=== PATIENT | male | born 1935 | race Caucasian/White ===

== ENCOUNTER → 2019-11-04 | Outpatient (CLI) | payer MEDICARE | LOC: RADUSWWP 08:50 | PROVIDERS: ATTEND Podiatrist Foot & Ankle Surgery | DX: I73.9 Peripheral vascular disease, unspecified (principal) | CPT/HCPCS: 93923 ==

== ENCOUNTER 2021-11-17 07:37 | Observation (INO) | payer MEDICARE ==
[2021-11-17 07:51] LABS: Glucose,Whole Blood 275 mg/dL (75-99)
--- NOTE | 2021-11-17 08:00 | ED ---
General Adult HPI - General Stated complaint: Syncope Time Seen by Provider: 11/17/21 07:37 Source: patient, RN notes reviewed, old records reviewed - History of Present Illness Initial comments: This is an 86-year-old male who presents emergency Department after having had a syncopal episode. Patient states he was in the emergency department earlier today for nosebleed and he went home he remembers going to bed and getting up at 6:30 to go to the bathroom and then he found himself on the floor. Patient denies headache patient denies numbness weakness per patient denies neck pain patient denies chest pain patient with back pain patient denies any extremity pain. Patient has no difficulty breathing first breath per patient denies any recent fever chills or cough. Patient states he has no memory of falling or feeling lightheaded. - Related Data Home Medications Medication Instructions Recorded Confirmed Aspirin EC [Ecotrin] 325 mg PO DAILY 11/17/21 11/17/21 Atorvastatin [Lipitor] 10 mg PO HS 11/17/21 11/17/21 Brimonidine Tartrate/Timolol 1 drop BOTH EYES BID 11/17/21 11/17/21 [Combigan 0.2%-0.5% Eye Drops] Brinzolamide [Azopt 1% Ophth Susp] 1 drop LEFT EYE BID 11/17/21 11/17/21 Latanoprost [Xalatan 0.005%] 1 drop BOTH EYES HS 11/17/21 11/17/21 Levothyroxine Sodium [Synthroid] 25 mcg PO DAILY 11/17/21 11/17/21 Loratadine [Claritin] 10 mg PO DAILY 11/17/21 11/17/21 Multivitamins, Thera [Multivitamin 1 tab PO DAILY 11/17/21 11/17/21 (formulary)] Tamsulosin [Flomax] 0.4 mg PO DAILY 11/17/21 11/17/21 Vit C/E/Zn/Coppr/Lutein/Zeaxan 1 cap PO DAILY 11/17/21 11/17/21 [Preservision Areds 2 Softgel] metFORMIN HCL [Glucophage] 500 mg PO BID 11/17/21 11/17/21 Previous Rx's Medication Instructions Recorded Amoxic-Pot Clav 875-125Mg 1 tab PO BID 10 Days #20 tab 11/17/21 [Augmentin 875-125] Allergies Allergy/AdvReac Type Severity Reaction Status Date / Time No Known Allergies Allergy Verified 11/17/21 08:19 Review of Systems ROS Statement: Those systems with pertinent positive or pertinent negative responses have been documented in the HPI. ROS Other: All systems not noted in ROS Statement are negative. Past Medical History Past Medical History: CVA/TIA, Hyperlipidemia, Hypertension History of Any Multi-Drug Resistant Organisms: None Reported Past Surgical History: Appendectomy, Cholecystectomy Past Psychological History: No Psychological Hx Reported Smoking Status: Never smoker Past Alcohol Use History: None Reported Past Drug Use History: None Reported General Exam - General Exam Comments Initial Comments: GENERAL: Patient is well-developed and well-nourished. Patient is nontoxic and well- hydrated and is in mild distress. ENT: Neck is soft and supple. No significant lymphadenopathy is noted. Oropharynx is clear. Moist mucous membranes. Neck has full range of motion without eliciting any pain. EYES: The sclera were anicteric and conjunctiva were pink and moist. Extraocular movements were intact and pupils were equal round and reactive to light. Eyelids were unremarkable. PULMONARY: Unlabored respirations. Good breath sounds bilaterally. No audible rales rhonchi or wheezing was noted. CARDIOVASCULAR: There is a regular rate and rhythm without any murmurs gallops or rubs. ABDOMEN: Soft and nontender with normal bowel sounds. SKIN: Patient has a contusion to the occipital region of his scalp. NEUROLOGIC: Patient is alert and oriented x3. Cranial nerves II through XII are grossly intact. Motor and sensory are also intact. Normal speech, volume and content. Symmetrical smile. MUSCULOSKELETAL: Normal extremities with adequate strength and full range of motion. LYMPHATICS: No significant lymphadenopathy is noted PSYCHIATRIC: Normal psychiatric evaluation. Course Vital Signs 11/17/21 11/17/21 07:39 08:52 Pulse Rate 105 H 106 H Respiratory 18 18 Rate Blood Pressure 129/68 130/67 O2 Sat by Pulse 97 96 Oximetry Medical Decision Making - Medical Decision Making EKG shows sinus tachycardia at 108 bpm OK interval 173 QRSs 80 QT interval 337 QTC is 400 per patient's EKG shows no ST segment elevation or depression. Patient's CT of the brain and C-spine showed no acute abnormality. Chest x-ray showed questionable infiltrate in the left lower lobe however p atient has no cough he's had no fever and he has no white count. I spoke with Dr. Botello he agreed to admit the patient admitted the patient wrote admitting orders. Patient is being admitted because of the syncopal episode not the scalp contusion - Lab Data Result diagrams: 11/17/21 07:52 11/17/21 07:52 Lab Results 11/17/21 11/17/21 11/17/21 Range/Units 07:42 07:52 07:52 WBC 9.3 (3.8-10.6) k/uL RBC 3.14 L (4.30-5.90) m/uL Hgb 9.9 L (13.0-17.5) gm/dL Hct 29.7 L (39.0-53.0) % MCV 94.8 (80.0-100.0) fL MCH 31.6 (25.0-35.0) pg MCHC 33.3 (31.0-37.0) g/dL RDW 14.2 (11.5-15.5) % Plt Count 221 (150-450) k/uL MPV 8.3 Neutrophils % 88 % Lymphocytes % 6 % Monocytes % 3 % Eosinophils % 2 % Basophils % 0 % Neutrophils # 8.2 H (1.3-7.7) k/uL Lymphocytes # 0.6 L (1.0-4.8) k/uL Monocytes # 0.2 (0-1.0) k/uL Eosinophils # 0.2 (0-0.7) k/uL Basophils # 0.0 (0-0.2) k/uL PT 11.6 (9.0-12.0) sec INR 1.1 (<1.2) APTT 21.5 L (22.0-30.0) sec Sodium (137-145) mmol/L Potassium (3.5-5.1) mmol/L Chloride (98-107) mmol/L Carbon Dioxide (22-30) mmol/L Anion Gap mmol/L BUN (9-20) mg/dL Creatinine (0.66-1.25) mg/dL Est GFR (CKD-EPI)AfAm (>60 ml/min/1.73 sqM) Est GFR (CKD-EPI)NonAf (>60 ml/min/1.73 sqM) Glucose (74-99) mg/dL POC Glucose (mg/dL) 275 H (75-99) mg/dL POC Glu [employer] Builder ID Andrew Gan Calcium (8.4-10.2) mg/dL Magnesium (1.6-2.3) mg/dL Total Bilirubin (0.2-1.3) mg/dL AST (17-59) U/L ALT (4-49) U/L Alkaline Phosphatase (38-126) U/L Troponin I (0.000-0.034) ng/mL Total Protein (6.3-8.2) g/dL Albumin (3.5-5.0) g/dL 11/17/21 11/17/21 Range/Units 07:52 07:52 WBC (3.8-10.6) k/uL RBC (4.30-5.90) m/uL Hgb (13.0-17.5) gm/dL Hct (39.0-53.0) % MCV (80.0-100.0) fL MCH (25.0-35.0) pg MCHC (31.0-37.0) g/dL RDW (11.5-15.5) % Plt Count (150-450) k/uL MPV Neutrophils % % Lymphocytes % % Monocytes % % Eosinophils % % Basophils % % Neutrophils # (1.3-7.7) k/uL Lymphocytes # (1.0-4.8) k/uL Monocytes # (0-1.0) k/uL Eosinophils # (0-0.7) k/uL Basophils # (0-0.2) k/uL PT (9.0-12.0) sec INR (<1.2) APTT (22.0-30.0) sec Sodium 131 L (137-145) mmol/L Potassium 4.4 (3.5-5.1) mmol/L Chloride 99 (98-107) mmol/L Carbon Dioxide 24 (22-30) mmol/L Anion Gap 8 mmol/L BUN 34 H (9-20) mg/dL Creatinine 0.63 L (0.66-1.25) mg/dL Est GFR (CKD-EPI)AfAm >90 (>60 ml/min/1.73 sqM) Est GFR (CKD-EPI)NonAf >90 (>60 ml/min/1.73 sqM) Glucose 275 H (74-99) mg/dL POC Glucose (mg/dL) (75-99) mg/dL POC Glu [employer] Builder ID Calcium 8.6 (8.4-10.2) mg/dL Magnesium 1.5 L (1.6-2.3) mg/dL Total Bilirubin 0.7 (0.2-1.3) mg/dL AST 31 (17-59) U/L ALT 26 (4-49) U/L Alkaline Phosphatase 67 (38-126) U/L Troponin I <0.012 (0.000-0.034) ng/mL Total Protein 7.7 (6.3-8.2) g/dL Albumin 3.6 (3.5-5.0) g/dL Disposition Clinical Impression: Syncope, Fall, Scalp contusion Disposition: ADMITTED IP TO THIS HOSP Referrals: Catrina Samuels MD [Primary Care Provider] - 1-2 days Time of Disposition: 09:31
[2021-11-17 08:13] LABS: Basophils % (A) 0 %; Eosinophils # (A) 0.2 k/uL (0-0.7); Eosinophils % (A) 2 %; HCT 29.7 % (39.0-53.0); HGB 9.9 gm/dL (13.0-17.5); Lymphocytes # (A) 0.6 k/uL (1.0-4.8); Lymphocytes % (A) 6 %; MCH 31.6 pg (25.0-35.0); MCHC 33.3 g/dL (31.0-37.0); MCV 94.8 fL (80.0-100.0); Mean Platelet Volume 8.3; Monocytes # (A) 0.2 k/uL (0-1.0); Monocytes % (A) 3 %; Neutrophils # (A) 8.2 k/uL (1.3-7.7); Neutrophils % (A) 88 %; Platelet Count 221 k/uL (150-450); RBC 3.14 m/uL (4.30-5.90); RDW 14.2 % (11.5-15.5); WBC 9.3 k/uL (3.8-10.6)
[2021-11-17 08:28] LABS: ALT 26 U/L (4-49); AST 31 U/L (17-59); African American GFR (CKD) >90 (>60 ml/min/1.73 sqM); Albumin 3.6 g/dL (3.5-5.0); Alkaline Phosphatase 67 U/L (38-126); Anion Gap 8 mmol/L; Blood Urea Nitrogen 34 mg/dL (9-20); Calcium 8.6 mg/dL (8.4-10.2); Carbon Dioxide 24 mmol/L (22-30); Chloride 99 mmol/L (98-107); Glucose 275 mg/dL (74-99); Magnesium 1.5 mg/dL (1.6-2.3); Non-African American GFR(CKD) >90 (>60 ml/min/1.73 sqM); Potassium 4.4 mmol/L (3.5-5.1); Sodium 131 mmol/L (137-145); Total Bilirubin 0.7 mg/dL (0.2-1.3); Total Protein 7.7 g/dL (6.3-8.2)
--- NOTE | 2021-11-17 08:32 | CT ---
EXAMINATION TYPE: CT brain rashard wo con DATE OF EXAM: 11/17/2021 COMPARISON: None HISTORY: Fall, trauma CT DLP: 1368.8 mGycm, Automated exposure control for dose reduction was used. CONTRAST: Patient injected with 0 mL of Isovue 300. CT of the brain is performed utilizing 3 mm thick sections through the posterior fossa and 3 mm thick sections through the remaining calvarium. Study is performed within 24 hours of arrival to the hospital. No abnormal hyperdensity is present to suggest an acute intracranial hemorrhage. No mass lesion is evident. No acute infarcts are evident. Mild periventricular white matter hypodensity is present, likely on t he basis of chronic white matter ischemic changes. Ventricles and sulci are appropriate for the patient age. No acute fractures are evident. Air-fluid levels may be within the maxillary sinuses. Correlate for acute maxillary sinusitis. Mucosa l thickening is through right-sided ethmoid air cells. This could be hemorrhage as well. Mucosal thic kening is within the frontal sinuses some mucosal thickening is within the right sphenoid sinus. IMPRESSIONS: 1. No acute intracranial process. 2. Chronic appearing periventricular white matter ischemic changes. 3. Air-fluid levels within the maxillary sinuses. Correlate for acute maxillary sinusitis. 4. Some fluid may be within the right nasal passage. Posttraumatic hemorrhage is not excluded. CT cervical spine. COMPARISON: None CT of the cervical spine is performed in the axial plane at 2 mm thick sections. Reconstructed image s in the coronal, and sagittal plane are reviewed on the computer. No acute fractures are evident. Vertebral body alignment is normal. There is diffuse loss of disc height. This is greater at the C4-5 C5-6 and C6-7 levels. Endplate spur ring C5-6 is noted. Anterior vertebral body spurring is present C4-C6. Some vacuum disc phenomenon is noted at C6-7. There is a large central disc herniation with moderate anterior thecal sac compression C4-5. AP spina l canal stenosis is present. Consider MRI for follow-up. Some milder spinal canal stenosis from endpl ate spurring is present at C5-6 level. Bilateral foraminal narrowing is present C5-6 and on the left at C4-5. Vertebral body heights are preserved. Bilateral apical thickening or infiltrates are present. Consider follow-up CT chest. IMPRESSIONS: 1. No acute osseous abnormality cervical spine. 2. Degenerative disc changes greatest C4-5, C5-6 and C6-7. 3. Central disc herniation at C4-5 appears large contributing to spinal canal stenosis. Consider MRI for additional workup. Some osseous spurring at C5-6 endplate level contributing to mild spinal canal narrowing. 4. Foraminal narrowing C4-5 C5-6 discussed above.
[2021-11-17 08:33] LABS: INR 1.1 (<1.2); Prothrombin Time 11.6 sec (9.0-12.0)
[2021-11-17 08:37] LABS: Partial Thromboplastin Time 21.5 sec (22.0-30.0)
--- NOTE | 2021-11-17 09:10 | XR ---
EXAMINATION TYPE: XR chest 2V DATE OF EXAM: 11/17/2021 COMPARISON: None INDICATION: Chest pain TECHNIQUE: Frontal and lateral views of the chest are obtained. FINDINGS: The heart size is normal. The pulmonary vasculature is normal. There is an infiltrate in the left lower lobe. Correlate for pneumonia. Consider atypical pneumonia.. IMPRESSION: 1. Left lower lobe infiltrate. Correlate for pneumonia. Follow-up is recommended.
[2021-11-17] MEDS ORDERED: NITROGLYCERIN SL TABS 0.4 MG TAB SUBLINGUAL PRN (09:31)
[2021-11-17] MEDS ORDERED: SODIUM CHLORIDE 0.9% 500 ML 500 ML IV ONE (09:41)
[2021-11-17] MEDS ORDERED: ENOXAPARIN 40 MG/0.4 ML SYRINGE SQ SCH (12:00)
--- NOTE | 2021-11-17 12:27 | US ---
EXAMINATION TYPE: US carotid duplex BILAT DATE OF EXAM: 11/17/2021 COMPARISON: NONE CLINICAL HISTORY: Syncope. Syncope, fall EXAM MEASUREMENTS: RIGHT: Peak Systolic Velocity (PSV) cm/sec ----- Right CCA: 84.5 ----- Right ICA: 81.4 ----- Right ECA: 194.8 ICA/CCA ratio: 1.0 RIGHT: End Diastole cm/sec ----- Right CCA: 18.6 ----- Right ICA: 20.6 ----- Right ECA: 19.2 LEFT: Peak Systolic Velocity (PSV) cm/sec ----- Left CCA: 64.7 ----- Left ICA: 339.7 ----- Left ECA: 245.4 ICA/CCA ratio: 5.2 LEFT: End Diastole cm/sec ----- Left CCA: 14.2 ----- Left ICA: 49.4 ----- Left ECA: 9.4 VERTEBRALS (direction of flow): Right Vertebral: Antegrade Left Vertebral: Antegrade Rhythm: Tachycardia Heterogeneous plaque bilaterally with bilateral bulbs heavily calcified/ Elevated velocities bilate ral ECA's and left ICA IMPRESSION: 1. 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 Correlate with the patient's symptoms. 2. At least mild stenosis of less than 50% within the right internal carotid artery. Elevated interna l carotid artery velocities not evident. Hard plaquing with shadowing however prevents accurate visua l correlation. Consider CTA for additional evaluation. Criteria for Assigning % of Stenosis / Diameter reduction (Estimation based on the indirect measurements of the internal carotid artery velocities (ICA PSV). 1. Normal (no stenosis)=ICA PSV < 125 cm/s: ratio < 2.0: ICA EDV<40 cm/s. 2. Less than 50% stenosis=ICA PSV < 125 cm/s: ratio < 2.0: ICA EDV<40 cm/s. 3. 50 to 69% stenosis=ICA PSV of 125 to 230 cm/s: ration 2.0 ? 4.0: ICA EDV 40-100 cm/s. 4. Greater than 70% stenosis to near occlusion= ICA PSV > 230 cm/s: ratio > 4.0: ICA EDV > 100 cm/s. 5. Near occlusion= ICA PSV velocities may be low or undetectable: variable ratio and ICA EDV. 6. Total occlusion=unable to detect flow.
[2021-11-17] MEDS ORDERED: SODIUM CHLORIDE 0.9% 500 ML 250 ML IV ONE (14:14)
[2021-11-17 15:21] LABS: Appearance,Urine Clear (Clear); Bilirubin,Urine Negative (Negative); Blood,Urine Negative (Negative); Color,Urine Light Yellow; Glucose,Urine (UA) 4+ (Negative); Ketones,Urine 1+ (Negative); Leukocyte Esterase,Urine Negative (Negative); Nitrite,Urine Negative (Negative); Protein,Urine Negative (Negative); Specific Gravity,Urine 1.013 (1.001-1.035); Urobilinogen,Urine <2.0 mg/dL (<2.0)
--- NOTE | 2021-11-17 15:38 | CT ---
EXAMINATION TYPE: CT angio chest DATE OF EXAM: 11/17/2021 COMPARISON: None HISTORY: Elevated d-dimer CT DLP: 322.8 mGycm Automated exposure control for dose reduction was used. CONTRAST: Performed with IV Contrast, patient injected with 100 mL of Isovue 370. There are Three-D postprocessed images. There is coarse interstitial infiltrate in the periphery of both lungs. There is no pleural effusion. Heart size is normal. There is no pericardial effusion. There are no hilar masses. There is no mediastinal adenopathy. Thoracic aorta is intact. There is no aneurysm or dissection. There is normal contrast opacification of the pulmonary arteries. There are no filling defects. There is some degenerative spurring in the thoracic spine. No compression fracture. Sternum is intact . Upper abdominal soft tissues appear intact. There is cholecystectomy. IMPRESSION: No evidence of pulmonary embolism. Patchy predominantly peripheral interstitial pulmonary infiltrates consistent with pulmonary fibrosis .
[2021-11-17] MEDS ORDERED: ENOXAPARIN 80 MG/0.8 ML SYRINGE SQ SCH ×2 (16:00→21:00)
[2021-11-17 16:03] LABS: Glucose,Whole Blood 316 mg/dL (75-99)
[2021-11-17 17:05] LABS: Glucose,Whole Blood 280 mg/dL (75-99)
[2021-11-17] MEDS: INSULIN ASPART (NovoLOG) 100 UNIT/ML VIAL SQ SCH ×2 (17:12→21:11)
--- NOTE | 2021-11-17 19:30 | US ---
EXAMINATION TYPE: US venous doppler duplex LE BI DATE OF EXAM: 11/17/2021 6:52 PM COMPARISON: NONE CLINICAL HISTORY: R/O DVT. SIDE PERFORMED: bilateral TECHNIQUE: The lower extremity deep venous system is examined utilizing real time linear array sonog cyn with graded compression, doppler sonography and color-flow sonography. VESSELS IMAGED: Common Femoral Vein Deep Femoral Vein Greater Saphenous Vein * Femoral Vein Popliteal Vein Small Saphenous Vein * Proximal Calf Veins (* superficial vessels) Right Leg: no evidence of DVT as visualized Left Leg: no evidence of DVT as visualized IMPRESSION: No evidence of deep vein thrombosis in both legs.
[2021-11-17] MEDS: ATORVASTATIN 10 MG TAB PO SCH (20:24)
[2021-11-17 21:09] LABS: Glucose,Whole Blood 226 mg/dL (75-99)
[2021-11-17] MEDS: DORZOLAMIDE HCL 2% DROPS 10 ML BTL LEFT EYE SCH (21:24)
[2021-11-17] MEDS: BRIMONIDINE TARTRATE 0.2% DROPS 5 ML BTL BOTH EYES SCH (21:25)
[2021-11-17] MEDS: LATANOPROST 0.005% OPHTH DROPS 2.5 ML BTL BOTH EYES SCH (21:25)
[2021-11-17] MEDS: TIMOLOL 0.5% OPHTH DROPS 5 ML BTL BOTH EYES SCH (21:25)
[2021-11-18 07:37] LABS: Glucose,Whole Blood 203 mg/dL (75-99)
[2021-11-18] MEDS: INSULIN ASPART (NovoLOG) 100 UNIT/ML VIAL SQ SCH ×4 (07:47→21:51)
[2021-11-18] MEDS: LEVOTHYROXINE 25 MCG TAB PO SCH (07:47)
[2021-11-18] MEDS: VIT A,C & E-LUTEIN-MINERALS 1 EACH TAB PO SCH (07:50)
[2021-11-18] MEDS: PANTOPRAZOLE 40 MG TABLET PO SCH (07:50)
[2021-11-18] MEDS: MULTIVITAMINS, THERA 1 EACH TAB PO SCH (07:50)
[2021-11-18] MEDS: LORATADINE 10 MG TAB PO SCH (07:50)
[2021-11-18] MEDS: ASPIRIN 325 MG TAB PO SCH (07:50)
[2021-11-18] MEDS: TAMSULOSIN 0.4 MG CAP.ER.24H PO SCH (07:50)
[2021-11-18] MEDS: ENOXAPARIN 40 MG/0.4 ML SYRINGE SQ SCH (07:51)
[2021-11-18] MEDS: TIMOLOL 0.5% OPHTH DROPS 5 ML BTL BOTH EYES SCH ×2 (07:51→22:02)
[2021-11-18] MEDS: BRIMONIDINE TARTRATE 0.2% DROPS 5 ML BTL BOTH EYES SCH ×2 (07:51→22:02)
[2021-11-18] MEDS: DORZOLAMIDE HCL 2% DROPS 10 ML BTL LEFT EYE SCH ×2 (07:52→22:01)
[2021-11-18 09:15] LABS: Chol/HDL Ratio 1.97 Ratio; LDL Cholesterol,Calculated 41.4 mg/dL (0.0-131.0)
[2021-11-18 09:27] LABS: Basophils % (A) 1 %; Eosinophils # (A) 0.2 k/uL (0-0.7); Eosinophils % (A) 4 %; HGB 9.8 gm/dL (13.0-17.5); Lymphocytes # (A) 0.6 k/uL (1.0-4.8); Lymphocytes % (A) 9 %; MCH 31.9 pg (25.0-35.0); MCHC 32.5 g/dL (31.0-37.0); Mean Platelet Volume 9.6; Monocytes # (A) 0.3 k/uL (0-1.0); Monocytes % (A) 5 %; Neutrophils # (A) 5.4 k/uL (1.3-7.7); Neutrophils % (A) 81 %; Platelet Count 165 k/uL (150-450); RBC 3.06 m/uL (4.30-5.90); RDW 14.6 % (11.5-15.5); WBC 6.6 k/uL (3.8-10.6)
[2021-11-18 09:41] LABS: ALT 24 U/L (4-49); AST 29 U/L (17-59); African American GFR (CKD) >90 (>60 ml/min/1.73 sqM); Albumin 3.4 g/dL (3.5-5.0); Albumin/Globulin Ratio 0.9; Alkaline Phosphatase 63 U/L (38-126); Anion Gap 6 mmol/L; Blood Urea Nitrogen 19 mg/dL (9-20); Calcium 8.5 mg/dL (8.4-10.2); Carbon Dioxide 23 mmol/L (22-30); Chloride 103 mmol/L (98-107); Glucose 220 mg/dL (74-99); Non-African American GFR(CKD) >90 (>60 ml/min/1.73 sqM); Potassium 3.8 mmol/L (3.5-5.1); Sodium 132 mmol/L (137-145); Total Bilirubin 0.8 mg/dL (0.2-1.3); Total Protein 7.4 g/dL (6.3-8.2)
[2021-11-18 12:05] LABS: Glucose,Whole Blood 142 mg/dL (75-99)
--- NOTE | 2021-11-18 12:23 | ECHOF ---
Referral Reason: MEASUREMENTS -------- HEIGHT: 180.3 cm WEIGHT: 68.0 kg BP: IVSd: 1.2 cm (0.6 - 1.1) LVIDd: 3.2 cm (3.9 - 5.3) LVPWd: 1.4 cm (0.6 - 1.1) IVSs: 1.6 cm LVIDs: 2.6 cm LVPWs: 1.4 cm MV EXCURSION: 15.271 mm (> 18.000) MV EF SLOPE: 38 mm/s (70 - 150) EPSS: 1.3 cm MV E Chau: 0.73 m/s MV DecT: 231 ms MV A Chau: 1.14 m/s MV E/A Ratio: 0.64 RAP: 5.00 mmHg RVSP: 8.21 mmHg FINDINGS -------- Sinus rhythm. This was a technically difficult study with suboptimal views. The left ventricular size is normal. There is mild concentric left ventricular hypertrophy. Overa ll left ventricular systolic function is normal with, an EF between 55 - 60 %. The right ventricle is normal in size. The left atrial size is normal. The right atrium was not well visualized. Lumason used The aortic valve was not well visualized. The mitral valve was not well visualized. There is trace mitral regurgitation. The tricuspid valve was not well visualized. Trace tricuspid regurgitation present. Right ventric ular systolic pressure is normal at < 35 mmHg. The pulmonic valve was not well visualized. The aortic root size is normal. Normal inferior vena cava with normal inspiratory collapse consistent with estimated right atrial pre ssure of 5 mmHg. There is no pericardial effusion. CONCLUSIONS -------- 1. This was a technically difficult study with suboptimal views. 2. There is mild concentric left ventricular hypertrophy. 3. Overall left ventricular systolic function is normal with, an EF between 55 - 60 %. 4. There is trace mitral regurgitation. 5. Trace tricuspid regurgitation present. 6. There is no pericardial effusion. [employer] LEADER: Mariam Bynum RDCS
--- NOTE | 2021-11-18 14:26 | P.CRDCN ---
History of Present Illness Consult date: 11/18/21 History of present illness: HISTORY OF PRESENT ILLNESS: This is a 86-year-old male with a past medical history significant for hypothyroidism, BPH, diabetes, and hyperlipidemia. 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 We have been asked to see the patient in consultation for syncope. Patient examined at the bedside. Patient is somewhat of a poor historian. Patient presented to the hospital due to syncope episode. Patient states he got up last night to use the bathroom and the next thing he knows he woke up on the floor. Patient denies having any weakness, lightheadedness, or dizziness prior to this. He denies having any chest pain or pressure. He denied any shortness of breath. The patient was also found to have a nosebleed. He currently has nasal packing in his right nostril. Patient reports having 3 nose bleeds within the last week. * EKG reveals sinus tachycardia with heart rate of 108 * Chest xray left lower lobe infiltrate. Correlate for pneumonia. * CT brain: No acute intracranial process. Chronic appearing periventricular white matter ischemic changes. * Carotid Doppler: Severe stenosis left internal carotid artery greater than 70%. At least mild stenosis of less than 50% within the right internal carotid artery. * CTA chest: Negative for pulmonary embolism. Patchy predominantly peripheral interstitial pulmonary infiltrates consistent with pulmonary fibrosis. * Venous Doppler: Negative for DVT of lower extremities bilaterally * Laboratory data: WBC 6.6. Hemoglobin 9.8. Platelet count 165. D-dimer 3.54. Sodium 132. Potassium 3.8. BUN 19. Creatinine 0.62. * Current home cardiac medications include aspirin 325 mg daily and Lipitor 10 mg daily * Echocardiogram completed revealing ejection fraction 55-60%, trace mitral regurgitation, and trace tricuspid regurgitation REVIEW OF SYSTEMS: At the time of my exam: CONSTITUTIONAL: Denies fever or chills. HEENT: Denies blurred vision, vision changes, or eye pain. Denies hemoptysis CARDIOVASCULAR: Denies chest pain. Denies orthopnea. Denies PND. Denies palpitations RESPIRATORY: Denies shortness of breath. GASTROINTESTINAL: Denies abdominal pain. Denies nausea or vomiting. HEMATOLOGIC: Denies bleeding disorders. GENITOURINARY: Denies any blood in urine. SKIN: Denies pruitis. Denies rash. PHYSICAL EXAM: VITAL SIGNS: Reviewed. GENERAL: Well-developed in no acute distress. HEENT: Head is normocephalic. Nasal packing to right nare. Pupils are equal, round. Sclerae anicteric. Mucous membranes of the mouth are moist. Neck supple. No JVD or thyromegaly LUNGS: Respirations even and unlabored. Lungs essentially clear to auscultation bilaterally. HEART: Regular rate and rhythm. S1 and S2 heard. ABDOMEN: Soft. Nondistended. Nontender. EXTREMITIES: Normal range of motion. No clubbing or cyanosis. Peripheral pulses intact. No lower extremity edema NEUROLOGIC: Awake and alert. Oriented x 3. ASSESSMENT: Syncope Epistaxis Carotid stenosis, Left 70%, Right less than 50% Diabetes Hyperlipidemia Hypothyroidism BPH PLAN: 2D echo obtained and reviewed Obtain orthostatic blood pressures Monitor telemetry Further recommendations pending patient course Nurse practitioner note has been reviewed by physician. Signing provider agrees with the documented findings, assessment, and plan of care. Past Medical History Past Medical History: CVA/TIA, Diabetes Mellitus, Eye Disorder, Hyperlipidemia, Hypertension, Prostate Disorder, Thyroid Disorder, Vascular Disorder Additional Past Medical History / Comment(s): CVA with R eye blindness, bilateral glaucoma, past HTN but then running low blood pressures and taken off rx, epistaxis, NIDDM type II, BPH, sinus problems, hypothyroid, PVD/L leg. History of Any Multi-Drug Resistant Organisms: None Reported Past Surgical History: Appendectomy, Cholecystectomy Additional Past Surgical History / Comment(s): Colonoscopy Past Anesthesia/Blood Transfusion Reactions: No Reported Reaction Smoking Status: Never smoker - Past Family History Father Family Medical History: Myocardial Infarction ([place]) Additional Family Medical History / Comment(s): Father from a [place] at the age of 50 yrs. Mother Family Medical History: Diabetes Mellitus, Liver Disease Additional Family Medical History / Comment(s): Hepatitis. Medications and Allergies Home Medications Medication Instructions Recorded Confirmed Type Amoxic-Pot Clav 875-125Mg 1 tab PO BID 10 Days #20 tab 11/17/21 11/17/21 Rx [Augmentin 875-125] Aspirin EC [Ecotrin] 325 mg PO DAILY 11/17/21 11/17/21 History Atorvastatin [Lipitor] 10 mg PO HS 11/17/21 11/17/21 History Brimonidine Tartrate/Timolol 1 drop BOTH EYES BID 11/17/21 11/17/21 History [Combigan 0.2%-0.5% Eye Drops] Brinzolamide [Azopt 1% Ophth Susp] 1 drop LEFT EYE BID 11/17/21 11/17/21 History Latanoprost [Xalatan 0.005%] 1 drop BOTH EYES HS 11/17/21 11/17/21 History Levothyroxine Sodium [Synthroid] 25 mcg PO DAILY 11/17/21 11/17/21 History Loratadine [Claritin] 10 mg PO DAILY 11/17/21 11/17/21 History Multivitamins, Thera [Multivitamin 1 tab PO DAILY 11/17/21 11/17/21 History (formulary)] Tamsulosin [Flomax] 0.4 mg PO DAILY 11/17/21 11/17/21 History Vit C/E/Zn/Coppr/Lutein/Zeaxan 1 cap PO DAILY 11/17/21 11/17/21 History [Preservision Areds 2 Softgel] metFORMIN HCL [Glucophage] 500 mg PO BID 11/17/21 11/17/21 History Allergies Allergy/AdvReac Type Severity Reaction Status Date / Time No Known Allergies Allergy Verified 11/17/21 08:19 Physical Exam Vitals: Vital Signs Temp Pulse Pulse Resp BP BP Pulse Ox 11/18/21 05:08 99 20 146/80 96 11/18/21 04:21 80 16 130/77 11/18/21 00:26 84 16 99 11/17/21 23:00 82 20 122/67 97 11/17/21 22:00 80 20 146/76 98 11/17/21 21:00 99 22 146/76 97 11/17/21 16:37 98.4 F 111 H 16 136/79 99 11/17/21 15:55 98.1 F 108 H 20 114/79 99 11/17/21 14:22 120 H 20 132/68 98 11/17/21 14:00 111 H 16 11/17/21 12:33 97.9 F 11/17/21 12:05 104 H 18 98 Intake and Output 11/17/21 11/18/21 11/18/21 22:59 06:59 14:59 Output Total 150 Balance -150 Output: Urine 150 Other: # Voids 1 Weight 68.039 kg Results 11/18/21 05:46 11/18/21 05:46 Cardiac Enzymes 11/17/21 11/17/21 11/18/21 Range/Units 11:14 15:31 05:46 AST 29 (17-59) U/L Troponin I <0.012 <0.012 (0.000-0.034) ng/mL Lipids 11/18/21 Range/Units 05:46 Triglycerides 86.00 (0.00-149.00) mg/dL Cholesterol 119.00 (0.00-200.00) mg/dL HDL Cholesterol 60.40 H (40.00-60.00) mg/dL Cholesterol/HDL Ratio 1.97 Ratio CBC 11/18/21 Range/Units 05:46 WBC 6.6 (3.8-10.6) k/uL RBC 3.06 L (4.30-5.90) m/uL Hgb 9.8 L (13.0-17.5) gm/dL Hct 30.0 L (39.0-53.0) % Plt Count 165 (150-450) k/uL Comprehensive Metabolic Panel 11/18/21 Range/Units 05:46 Sodium 132 L (137-145) mmol/L Potassium 3.8 (3.5-5.1) mmol/L Chloride 103 (98-107) mmol/L Carbon Dioxide 23 (22-30) mmol/L BUN 19 (9-20) mg/dL Creatinine 0.62 L (0.66-1.25) mg/dL Glucose 220 H (74-99) mg/dL Calcium 8.5 (8.4-10.2) mg/dL AST 29 (17-59) U/L ALT 24 (4-49) U/L Alkaline Phosphatase 63 (38-126) U/L Total Protein 7.4 (6.3-8.2) g/dL Albumin 3.4 L (3.5-5.0) g/dL Current Medications Generic Name Dose Route Start Last Admin Trade Name Freq PRN Reason Stop Dose Admin Aspirin 325 mg 11/18/21 09:00 11/18/21 07:50 Aspirin 325 Mg Tab PO 325 mg DAILY CRISTAL Administration Atorvastatin Calcium 10 mg 11/17/21 21:00 11/17/21 20:24 Atorvastatin 10 Mg Tab PO 10 mg HS CRISTAL Administration Brimonidine Tartrate 1 drops 11/17/21 21:00 11/18/21 07:51 Brimonidine Tartrate 0.2% Drops 5 Ml Btl BOTH EYES 1 drops BID CRISTAL Administration Dorzolamide HCl 1 drops 11/17/21 21:00 11/18/21 07:52 Dorzolamide Hcl 2% Drops 10 Ml Btl LEFT EYE 1 drops BID CRISTAL Administration Enoxaparin Sodium 40 mg 11/18/21 09:00 11/18/21 07:51 Enoxaparin 40 Mg/0.4 Ml Syringe SQ 40 mg DAILY CRISTAL Administration Insulin Aspart 0 unit 11/17/21 17:30 11/18/21 07:47 Insulin Aspart (Novolog) 100 Unit/Ml Vial SQ 2 unit ACHS CRISTAL Administration Protocol Latanoprost 1 drops 11/17/21 21:00 11/17/21 21:25 Latanoprost 0.005% Ophth Drops 2.5 Ml Btl BOTH EYES 1 drops HS CRISTAL Administration Levothyroxine Sodium 25 mcg 11/18/21 06:30 11/18/21 07:47 Levothyroxine 25 Mcg Tab PO 25 mcg DAILY@0630 CRISTAL Administration Loratadine 10 mg 11/18/21 09:00 11/18/21 07:50 Loratadine 10 Mg Tab PO 10 mg DAILY CRISTAL Administration Multivitamins 1 each 11/18/21 09:00 11/18/21 07:50 Multivitamins, Thera 1 Each Tab PO 1 each DAILY CRISTAL Administration Multivitamins/Minerals 1 each 11/18/21 09:00 11/18/21 07:50 Vit A,C & B-Fcpqcr-Iglxnqft 1 Each Tab PO 1 each DAILY CRISTAL Administration Nitroglycerin 0.4 mg 11/17/21 09:31 Nitroglycerin Sl Tabs 0.4 Mg Tab SUBLINGUAL Q5M PRN Chest Pain Pantoprazole Sodium 40 mg 11/18/21 07:30 11/18/21 07:50 Pantoprazole 40 Mg Tablet PO 40 mg AC-[id number] CRISTAL Administration Tamsulosin HCl 0.4 mg 11/18/21 09:00 11/18/21 07:50 Tamsulosin 0.4 Mg Cap.Er.24h PO 0.4 mg DAILY CRISTAL Administration Timolol Maleate 1 drops 11/17/21 21:00 11/18/21 07:51 Timolol 0.5% Ophth Drops 5 Ml Btl BOTH EYES 1 drops BID CRISTAL Administration Intake and Output 11/17/21 11/18/21 11/18/21 22:59 06:59 14:59 Output Total 150 Balance -150 Output: Urine 150 Other: # Voids 1 Weight 68.039 kg Patient Weight 11/19/21 06:59 Weight 68.039 kg 11/18/21 05:46 11/18/21 05:46
[2021-11-18 17:28] LABS: Glucose,Whole Blood 262 mg/dL (75-99)
[2021-11-18 17:39] LABS: Partial Thromboplastin Time 25.3 sec (22.0-30.0); Prothrombin Time 10.7 sec (9.0-12.0)
--- NOTE | 2021-11-18 18:03 | P.HPIM ---
History of Present Illness H&P Date: 11/17/21 Reginaldo Bynum, is an 86-year-old male who presented to [facility] emergency room after having an episode of syncope at home, patient states that he came into emergency room for a nosebleed and was discharged home, afterwards he was in his bed when he got up and went to the bathroom and passed out and fell to the floor in the bathroom, he woke up on the bathroom floor and did not remember falling or feeling dizzy or passing out, he returned to emergency room where he was evaluated and admitted to telemetry floor for further evaluation. He was evaluated in the emergency room vital examination on presentation revealed heart rate of 105 respiration 18 blood pressure 129/68 pulse ox 97% on room air Laboratory data revealed a white blood count of 9.3 hemoglobin 9.9 platelet count 221 sodium 131 potassium 4.4 chloride 99 CO2 24 BUN 34 creatinine 0.63 glucose level 275 troponin level negative COVID-19 PCR negative Testing in the emergency room revealed EKG revealed sinus tachycardia was left atrial enlargement, chest x-ray revealed left lower lobe infiltrate correlate for pneumonia, computed tomography scan of the brain revealed no acute intracranial process, computed tomography scan of the cervical spine revealed 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 Patient was admitted to medical floor for further evaluation and treatment Past medical history is significant for history of hyperlipidemia, history of ivl-exvmrtb-bmfsmjodn diabetes mellitus, history of hypothyroidism, history of benign prostatic hypertrophy, Past Medical History Past Medical History: CVA/TIA, Hyperlipidemia, Hypertension History of Any Multi-Drug Resistant Organisms: None Reported Past Surgical History: Appendectomy, Cholecystectomy Past Psychological History: No Psychological Hx Reported Smoking Status: Never smoker Past Alcohol Use History: None Reported Past Drug Use History: None Reported - Past Family History Father Family Medical History: Myocardial Infarction ([place]) Additional Family Medical History / Comment(s): Father from a [place] at the age of 50 yrs. Mother Family Medical History: Diabetes Mellitus, Liver Disease Additional Family Medical History / Comment(s): Hepatitis. Medications and Allergies Home Medications Medication Instructions Recorded Confirmed Type Amoxic-Pot Clav 875-125Mg 1 tab PO BID 10 Days #20 tab 11/17/21 11/17/21 Rx [Augmentin 875-125] Aspirin EC [Ecotrin] 325 mg PO DAILY 11/17/21 11/17/21 History Atorvastatin [Lipitor] 10 mg PO HS 11/17/21 11/17/21 History Brimonidine Tartrate/Timolol 1 drop BOTH EYES BID 11/17/21 11/17/21 History [Combigan 0.2%-0.5% Eye Drops] Brinzolamide [Azopt 1% Ophth Susp] 1 drop LEFT EYE BID 11/17/21 11/17/21 History Latanoprost [Xalatan 0.005%] 1 drop BOTH EYES HS 11/17/21 11/17/21 History Levothyroxine Sodium [Synthroid] 25 mcg PO DAILY 11/17/21 11/17/21 History Loratadine [Claritin] 10 mg PO DAILY 11/17/21 11/17/21 History Multivitamins, Thera [Multivitamin 1 tab PO DAILY 11/17/21 11/17/21 History (formulary)] Tamsulosin [Flomax] 0.4 mg PO DAILY 11/17/21 11/17/21 History Vit C/E/Zn/Coppr/Lutein/Zeaxan 1 cap PO DAILY 11/17/21 11/17/21 History [Preservision Areds 2 Softgel] metFORMIN HCL [Glucophage] 500 mg PO BID 11/17/21 11/17/21 History Allergies Allergy/AdvReac Type Severity Reaction Status Date / Time No Known Allergies Allergy Verified 11/17/21 08:19 Physical Exam Vitals: Vital Signs Pulse Resp BP Pulse Ox 11/17/21 11:00 104 H 18 139/72 97 11/17/21 08:52 106 H 18 130/67 96 11/17/21 07:39 105 H 18 129/68 97 Intake and Output 11/16/21 11/17/21 11/17/21 22:59 06:59 14:59 Other: Weight 68.039 kg In general patient is alert and oriented x 3 in no distress HEENT head normocephalic and atraumatic Neck is supple no JVD no goiter no lymphadenopathy no carotid bruit Chest examination is clear to auscultation no crackles no wheezing Cardiac exam reveals regular heart sounds S1 and S2 no gallops no murmurs Abdomen is soft nontender no organomegaly with normal bowel sounds Extremity exam reveals no edema no cyanosis or clubbing Neurological examination reveals no gross focal deficits Results CBC & Chem 7: 02/14/22 05:46 11/18/21 05:46 Labs: Abnormal Lab Results - Last 24 Hours (Table) 11/17/21 11/17/21 11/17/21 Range/Units 07:42 07:52 07:52 RBC 3.14 L (4.30-5.90) m/uL Hgb 9.9 L (13.0-17.5) gm/dL Hct 29.7 L (39.0-53.0) % Neutrophils # 8.2 H (1.3-7.7) k/uL Lymphocytes # 0.6 L (1.0-4.8) k/uL APTT 21.5 L (22.0-30.0) sec Sodium (137-145) mmol/L BUN (9-20) mg/dL Creatinine (0.66-1.25) mg/dL Glucose (74-99) mg/dL POC Glucose (mg/dL) 275 H (75-99) mg/dL Magnesium (1.6-2.3) mg/dL 11/17/21 Range/Units 07:52 RBC (4.30-5.90) m/uL Hgb (13.0-17.5) gm/dL Hct (39.0-53.0) % Neutrophils # (1.3-7.7) k/uL Lymphocytes # (1.0-4.8) k/uL APTT (22.0-30.0) sec Sodium 131 L (137-145) mmol/L BUN 34 H (9-20) mg/dL Creatinine 0.63 L (0.66-1.25) mg/dL Glucose 275 H (74-99) mg/dL POC Glucose (mg/dL) (75-99) mg/dL Magnesium 1.5 L (1.6-2.3) mg/dL Assessment and Plan Plan: Syncope with collapse Dehydration with elevated BUN and creatinine on presentation Hyperglycemia on presentation Underlying history of nwg-pfdibnt-bjxwlojak diabetes mellitus Underlying history of hyperlipidemia Underlying history of hypothyroidism Underlying history of benign prostatic hypertrophy At this time patient is admitted to medical floor Will start gentle IV hydration Home medications reviewed and reordered, will hold metformin at this time due to elevated BUN and creatinine, will cover with insulin sliding scale For DVT prophylaxis we will use Lovenox, for GI prophylaxis Protonix Serial EKGs and cardiac enzymes are ordered, cardiology consultation was requested Will check echocardiogram and carotid Doppler
--- NOTE | 2021-11-18 19:07 | P.PN ---
Subjective Progress Note Date: 11/18/21 Erik Cha, is an 87-year-old male who presented to [facility] emergency room with a chief complaint of generalized weakness. Patient was admitted to the hospital with COVID-19 pneumonia in October he was discharged to a [facility] and was recently discharged maryanne e, patient has been tired he has poor oral intake, he was also complaining of shortness of breath with any activity. He was evaluated in the emergency room vital examination on presentation revealed a temperature of 97.4 pulse 73 respiration 22 blood pressure 102/69 pulse ox 100% on 4 L nasal cannula Laboratory data revealed a white blood count of 5.4 hemoglobin 10.0 platelet count 690 sodium 141 potassium 4.6 chloride 123 CO2 19 BUN 63 creatinine 1.97 magnesium 0.9 urine analysis revealed evidence of urinary tract infection with more than 182 white blood cells per high-power field with many bacteria and many yeast, Mendez virus PCR was positive. Testing in the emergency room revealed chest x-ray revealed evidence of atypical pneumonia with progression from previous studies Patient was admitted to medical floor for further evaluation and treatment. On 11/18/2021 patient was seen and examined on the medical floor he is alert and oriented 3 in no apparent distress there is no fever or chills no headache or dizziness no chest pain no shortness of breath no cough no nausea or vomiting no abdominal pain no diarrhea no blood in the stools no burning with urination no frequency or urgency and no hematuria, patient was evaluated by cardiology, we are awaiting echocardiogram results, and awaiting evaluation by hematology in that regard to elevated d-dimer Objective - Vital Signs Vital signs: Vital Signs Temp 98.1 F 11/18/21 15:00 Pulse 65 11/18/21 15:00 Resp 16 11/18/21 15:00 BP 117/79 11/18/21 15:00 Pulse Ox 98 11/18/21 15:00 Intake & Output 11/17/21 11/18/21 11/18/21 18:59 06:59 18:59 Output Total 150 Balance -150 Weight 68.039 kg 68.039 kg Output: Urine 150 Other: Voiding Method Urinal Urinal Diaper # Voids 1 1 # Bowel Movements 1 - Exam In general patient is alert and oriented x 3 in no distress HEENT head normocephalic and atraumatic Neck is supple no JVD no goiter no lymphadenopathy no carotid bruit Chest examination is clear to auscultation no crackles no wheezing Cardiac exam reveals regular heart sounds S1 and S2 no gallops no murmurs Abdomen is soft nontender no organomegaly with normal bowel sounds Extremity exam reveals no edema no cyanosis or clubbing Neurological examination reveals no gross focal deficits - Labs CBC & Chem 7: 11/18/21 05:46 11/18/21 05:46 Labs: Abnormal Lab Results - Last 24 Hours (Table) 11/17/21 11/18/21 11/18/21 Range/Units 21:07 05:46 05:46 RBC 3.06 L (4.30-5.90) m/uL Hgb 9.8 L (13.0-17.5) gm/dL Hct 30.0 L (39.0-53.0) % Lymphocytes # 0.6 L (1.0-4.8) k/uL D-Dimer (<0.60) mg/L FEU Sodium (137-145) mmol/L Creatinine (0.66-1.25) mg/dL Glucose (74-99) mg/dL POC Glucose (mg/dL) 226 H (75-99) mg/dL Albumin (3.5-5.0) g/dL HDL Cholesterol 60.40 H (40.00-60.00) mg/dL 11/18/21 11/18/21 11/18/21 Range/Units 05:46 05:46 07:36 RBC (4.30-5.90) m/uL Hgb (13.0-17.5) gm/dL Hct (39.0-53.0) % Lymphocytes # (1.0-4.8) k/uL D-Dimer 3.54 H (<0.60) mg/L FEU Sodium 132 L (137-145) mmol/L Creatinine 0.62 L (0.66-1.25) mg/dL Glucose 220 H (74-99) mg/dL POC Glucose (mg/dL) 203 H (75-99) mg/dL Albumin 3.4 L (3.5-5.0) g/dL HDL Cholesterol (40.00-60.00) mg/dL 11/18/21 11/18/21 Range/Units 12:03 17:27 RBC (4.30-5.90) m/uL Hgb (13.0-17.5) gm/dL Hct (39.0-53.0) % Lymphocytes # (1.0-4.8) k/uL D-Dimer (<0.60) mg/L FEU Sodium (137-145) mmol/L Creatinine (0.66-1.25) mg/dL Glucose (74-99) mg/dL POC Glucose (mg/dL) 142 H 262 H (75-99) mg/dL Albumin (3.5-5.0) g/dL HDL Cholesterol (40.00-60.00) mg/dL Assessment and Plan Plan: Syncope with collapse Dehydration with elevated BUN and creatinine on presentation Hyperglycemia on presentation Underlying history of yxs-slumjue-emdcxsyqf diabetes mellitus Underlying history of hyperlipidemia Underlying history of hypothyroidism Underlying history of benign prostatic hypertrophy Nasal bleeding with right nostril packing Elevated d-dimer cause is not clear consultation for hematology was initiated At this time patient is admitted to medical floor Will start gentle IV hydration Home medications reviewed and reordered, will hold metformin at this time due to elevated BUN and creatinine, will cover with insulin sliding scale For DVT prophylaxis we will use Lovenox, for GI prophylaxis Protonix Serial EKGs and cardiac enzymes are ordered, cardiology consultation was requested Will check echocardiogram and carotid Doppler
[2021-11-18 21:48] LABS: Glucose,Whole Blood 151 mg/dL (75-99)
[2021-11-18] MEDS: ATORVASTATIN 10 MG TAB PO SCH (21:52)
[2021-11-18] MEDS: LATANOPROST 0.005% OPHTH DROPS 2.5 ML BTL BOTH EYES SCH (21:59)
[2021-11-19 04:37] LABS: % Iron Saturation 11.68 (15.00-50.00)
[2021-11-19] MEDS: LEVOTHYROXINE 25 MCG TAB PO SCH (05:21)
[2021-11-19 07:21] LABS: Glucose,Whole Blood 185 mg/dL (75-99)
[2021-11-19] MEDS: INSULIN ASPART (NovoLOG) 100 UNIT/ML VIAL SQ SCH ×4 (08:10→22:01)
--- NOTE | 2021-11-19 09:11 | P.CONS ---
History of Present Illness - Reason for Consult Consult date: 11/18/21 elevated d-dimer Requesting physician: Leobardo Botello - Chief Complaint epistaxis - History of Present Illness Carol Abreu is a very pleasant man we have been asked to see because of an elevated d-dimer. He denies any history of blood disorders, clotting problems, blood clots, he did have a "mini stroke" in his right eye and, PCP treated him with anticoagulation for a period of time, he is not sure how long, then discontinued. He has HTN, hyperlipidemia, DMII, hypothyroidism. Denies any history of autoimmune diseases, psoriasis, eczema, rheumatoid. Review of Systems 10 point ROS is neg except as stated in HPI Past Medical History Past Medical History: CVA/TIA, Diabetes Mellitus, Eye Disorder, Hyperlipidemia, Hypertension, Prostate Disorder, Thyroid Disorder, Vascular Disorder Additional Past Medical History / Comment(s): CVA with R eye blindness, bilateral glaucoma, past HTN but then running low blood pressures and taken off rx, epistaxis, NIDDM type II, BPH, sinus problems, hypothyroid, PVD/L leg. History of Any Multi-Drug Resistant Organisms: None Reported Past Surgical History: Appendectomy, Cholecystectomy Additional Past Surgical History / Comment(s): Colonoscopy Past Anesthesia/Blood Transfusion Reactions: No Reported Reaction Past Psychological History: No Psychological Hx Reported Smoking Status: Never smoker - Past Family History Father Family Medical History: Myocardial Infarction ([place]) Additional Family Medical History / Comment(s): Father from a [place] at the age of 50 yrs. Mother Family Medical History: Diabetes Mellitus, Liver Disease Additional Family Medical History / Comment(s): Hepatitis. Medications and Allergies Home Medications Medication Instructions Recorded Confirmed Type Amoxic-Pot Clav 875-125Mg 1 tab PO BID 10 Days #20 tab 11/17/21 11/17/21 Rx [Augmentin 875-125] Aspirin EC [Ecotrin] 325 mg PO DAILY 11/17/21 11/17/21 History Atorvastatin [Lipitor] 10 mg PO HS 11/17/21 11/17/21 History Brimonidine Tartrate/Timolol 1 drop BOTH EYES BID 11/17/21 11/17/21 History [Combigan 0.2%-0.5% Eye Drops] Brinzolamide [Azopt 1% Ophth Susp] 1 drop LEFT EYE BID 11/17/21 11/17/21 History Latanoprost [Xalatan 0.005%] 1 drop BOTH EYES HS 11/17/21 11/17/21 History Levothyroxine Sodium [Synthroid] 25 mcg PO DAILY 11/17/21 11/17/21 History Loratadine [Claritin] 10 mg PO DAILY 11/17/21 11/17/21 History Multivitamins, Thera [Multivitamin 1 tab PO DAILY 11/17/21 11/17/21 History (formulary)] Tamsulosin [Flomax] 0.4 mg PO DAILY 11/17/21 11/17/21 History Vit C/E/Zn/Coppr/Lutein/Zeaxan 1 cap PO DAILY 11/17/21 11/17/21 History [Preservision Areds 2 Softgel] metFORMIN HCL [Glucophage] 500 mg PO BID 11/17/21 11/17/21 History Allergies Allergy/AdvReac Type Severity Reaction Status Date / Time No Known Allergies Allergy Verified 11/17/21 08:19 Physical Exam Vitals: Vital Signs Temp Pulse Pulse Resp BP BP Pulse Ox 11/18/21 07:00 98 F 67 16 114/80 99 11/18/21 05:08 99 20 146/80 96 11/18/21 04:21 80 16 130/77 11/18/21 00:26 84 16 99 11/17/21 23:00 82 20 122/67 97 11/17/21 22:00 80 20 146/76 98 11/17/21 21:00 99 22 146/76 97 11/17/21 16:37 98.4 F 111 H 16 136/79 99 Intake and Output 11/18/21 11/18/21 11/18/21 06:59 14:59 22:59 Other: # Voids 1 # Bowel Movements 1 Weight 68.039 kg - Constitutional General appearance: cooperative, no acute distress, thin - EENT rt cataract Eyes: anicteric sclerae, EOMI ENT: hard of hearing - Neck Neck: no lymphadenopathy - Respiratory Respiratory: bilateral: CTA - Cardiovascular Rhythm: regular Heart sounds: normal: S1, S2 Abnormal Heart Sounds: no systolic murmur, no diastolic murmur, no rub, no S3 Ga llop, no S4 Gallop, no click, no other leg Peripheral Edema: bilateral: None - Gastrointestinal General gastrointestinal: no absent bowel sounds, no decreased bowel sounds, no distended, no hepatomegaly, no hyperactive bowel sounds, normal bowel sounds, no organomegaly, no rigid, no scaphoid, soft, no splenomegaly, no tenderness, no umbilical hernia, no ventral hernia - Integumentary Integumentary: normal - Neurologic Neurologic: CNII-XII intact (grossly) - Psychiatric Psychiatric: A&O x's 3, appropriate affect, intact judgment & insight Results CBC & Chem 7: 11/18/21 05:46 11/18/21 05:46 Labs: Abnormal Lab Results - Last 24 Hours (Table) 11/17/21 11/17/21 11/17/21 Range/Units 07:52 07:52 16:58 RBC (4.30-5.90) m/uL Hgb (13.0-17.5) gm/dL Hct (39.0-53.0) % Lymphocytes # (1.0-4.8) k/uL D-Dimer (<0.60) mg/L FEU Sodium (137-145) mmol/L Creatinine (0.66-1.25) mg/dL Glucose (74-99) mg/dL POC Glucose (mg/dL) 280 H (75-99) mg/dL Hemoglobin A1c 8.3 H (0.0-6.0) % Albumin (3.5-5.0) g/dL HDL Cholesterol (40.00-60.00) mg/dL Procalcitonin 0.14 H (0.02-0.09) ng/mL 11/17/21 11/18/21 11/18/21 Range/Units 21:07 05:46 05:46 RBC 3.06 L (4.30-5.90) m/uL Hgb 9.8 L (13.0-17.5) gm/dL Hct 30.0 L (39.0-53.0) % Lymphocytes # 0.6 L (1.0-4.8) k/uL D-Dimer (<0.60) mg/L FEU Sodium (137-145) mmol/L Creatinine (0.66-1.25) mg/dL Glucose (74-99) mg/dL POC Glucose (mg/dL) 226 H (75-99) mg/dL Hemoglobin A1c (0.0-6.0) % Albumin (3.5-5.0) g/dL HDL Cholesterol 60.40 H (40.00-60.00) mg/dL Procalcitonin (0.02-0.09) ng/mL 11/18/21 11/18/21 11/18/21 Range/Units 05:46 05:46 07:36 RBC (4.30-5.90) m/uL Hgb (13.0-17.5) gm/dL Hct (39.0-53.0) % Lymphocytes # (1.0-4.8) k/uL D-Dimer 3.54 H (<0.60) mg/L FEU Sodium 132 L (137-145) mmol/L Creatinine 0.62 L (0.66-1.25) mg/dL Glucose 220 H (74-99) mg/dL POC Glucose (mg/dL) 203 H (75-99) mg/dL Hemoglobin A1c (0.0-6.0) % Albumin 3.4 L (3.5-5.0) g/dL HDL Cholesterol (40.00-60.00) mg/dL Procalcitonin (0.02-0.09) ng/mL 11/18/21 Range/Units 12:03 RBC (4.30-5.90) m/uL Hgb (13.0-17.5) gm/dL Hct (39.0-53.0) % Lymphocytes # (1.0-4.8) k/uL D-Dimer (<0.60) mg/L FEU Sodium (137-145) mmol/L Creatinine (0.66-1.25) mg/dL Glucose (74-99) mg/dL POC Glucose (mg/dL) 142 H (75-99) mg/dL Hemoglobin A1c (0.0-6.0) % Albumin (3.5-5.0) g/dL HDL Cholesterol (40.00-60.00) mg/dL Procalcitonin (0.02-0.09) ng/mL CT scan - chest: report reviewed Venous US: report reviewed Assessment and Plan (1) Elevated d-dimer Narrative/Plan: Results decreased significantly on 2nd lab draw. Doppler of BLE/CTA neg for DVT/PE Coags, DIC work up Current Visit: Yes Status: Acute Priority: High Code(s): R79.89 - OTHER SPECIFIED ABNORMAL FINDINGS OF BLOOD CHEMISTRY SNOMED Code(s): 568643527
--- NOTE | 2021-11-19 10:20 | P.PN ---
Subjective Progress Note Date: 11/19/21 HISTORY OF PRESENT ILLNESS: This is a 86-year-old male with a past medical history significant for hypothyroidism, BPH, diabetes, and hyperlipidemia. Patient does not follow with a home care administrator.. We have been asked to see the patient in consultation for syncope. Patient examined at the bedside. Patient is somewhat of a poor historian. Patient presented to the hospital due to syncope episode. Patient states he got up last night to use the bathroom and the next thing he knows he woke up on the floor. Patient denies having any weakness, lightheadedness, or dizziness prior to this. He denies having any chest pain or pressure. He denied any shortness of breath. The patient was also found to have a nosebleed. He currently has nasal packing in his right nostril. Patient reports having 3 nose bleeds within the last week. * EKG reveals sinus tachycardia with heart rate of 108 * Chest xray left lower lobe infiltrate. Correlate for pneumonia. * CT brain: No acute intracranial process. Chronic appearing periventricular white matter ischemic changes. * Carotid Doppler: Severe stenosis left internal carotid artery greater than 70%. At least mild stenosis of less than 50% within the right internal carotid artery. * CTA chest: Negative for pulmonary embolism. Patchy predominantly peripheral interstitial pulmonary infiltrates consistent with pulmonary fibrosis. * Venous Doppler: Negative for DVT of lower extremities bilaterally * Laboratory data: WBC 6.6. Hemoglobin 9.8. Platelet count 165. D-dimer 3.54. Sodium 132. Potassium 3.8. BUN 19. Creatinine 0.62. * Current home cardiac medications include aspirin 325 mg daily and Lipitor 10 mg daily * Echocardiogram completed revealing ejection fraction 55-60%, trace mitral regurgitation, and trace tricuspid regurgitation 11/19/2021 Patient examined this morning at the bedside. Patient denies chest pain or pressure. He denies shortness of breath. Denies any dizziness or lightheadedness. Echocardiogram completed revealing ejection fraction 55-60%, trace mitral regurgitation, and trace tricuspid regurgitation. Vital signs are stable. Telemetry reveals sinus mechanism with no arrhythmias noted. PHYSICAL EXAM: VITAL SIGNS: Reviewed. GENERAL: Well-developed in no acute distress. HEENT: Head is normocephalic. Nasal packing to right nare. Pupils are equal, round. Sclerae anicteric. Mucous membranes of the mouth are moist. Neck supple. No JVD or thyromegaly LUNGS: Respirations even and unlabored. Lungs essentially clear to auscultation bilaterally. HEART: Regular rate and rhythm. S1 and S2 heard. ABDOMEN: Soft. Nondistended. Nontender. EXTREMITIES: Normal range of motion. No clubbing or cyanosis. Peripheral pulses intact. No lower extremity edema NEUROLOGIC: Awake and alert. ASSESSMENT: Syncope Epistaxis Carotid stenosis, Left 70%, Right less than 50% Diabetes Hyperlipidemia Hypothyroidism BPH PLAN: Continue current cardiac medications Patient is stable from a cardiac perspective We will sign off. Please reconsult if needed. Nurse practitioner note has been reviewed by physician. Signing provider agrees with the documented findings, assessment, and plan of care. Objective - Vital Signs Vital signs: Vital Signs Temp 98.2 F 11/19/21 07:00 Pulse 87 11/19/21 07:00 Resp 15 11/19/21 07:00 BP 120/63 11/19/21 07:00 Pulse Ox 100 11/19/21 07:00 Intake & Output 11/18/21 11/19/21 11/19/21 18:59 06:59 18:59 Intake Total 118 Balance 118 Weight 68.039 kg Intake: Oral 118 Other: Voiding Method Urinal Urinal Diaper Diaper # Voids 1 1 # Bowel Movements 1 - Labs CBC & Chem 7: 11/18/21 05:46 11/18/21 05:46 Labs: Abnormal Lab Results - Last 24 Hours (Table) 11/18/21 11/18/21 11/18/21 Range/Units 12:03 16:49 17:27 D-Dimer (<0.60) mg/L FEU POC Glucose (mg/dL) 142 H 262 H (75-99) mg/dL Iron 36 L (65-175) ug/dL % Saturation 11.68 L (15.00-50.00) 11/18/21 11/19/21 11/19/21 Range/Units 21:46 07:04 07:20 D-Dimer 1.83 H (<0.60) mg/L FEU POC Glucose (mg/dL) 151 H 185 H (75-99) mg/dL Iron (65-175) ug/dL % Saturation (15.00-50.00)
[2021-11-19] MEDS: ASPIRIN 325 MG TAB PO SCH (11:31)
[2021-11-19] MEDS: ENOXAPARIN 40 MG/0.4 ML SYRINGE SQ SCH (11:31)
[2021-11-19] MEDS: VIT A,C & E-LUTEIN-MINERALS 1 EACH TAB PO SCH (11:31)
[2021-11-19] MEDS: PANTOPRAZOLE 40 MG TABLET PO SCH (11:31)
[2021-11-19] MEDS: TAMSULOSIN 0.4 MG CAP.ER.24H PO SCH (11:32)
[2021-11-19] MEDS: LORATADINE 10 MG TAB PO SCH (11:32)
[2021-11-19] MEDS: MULTIVITAMINS, THERA 1 EACH TAB PO SCH (11:32)
[2021-11-19 12:18] LABS: Glucose,Whole Blood 320 mg/dL (75-99)
--- NOTE | 2021-11-19 15:40 | P.PN ---
Subjective Progress Note Date: 11/19/21 Principal diagnosis: Epistaxis, elevated d-dimer In f/u today pt denies feeling blood trickle down the back of his throat, coughing blood out, hematemesis, coffee ground emesis, black stool, or any other bleeding. He states he has had colonoscopy, > 5 years ago. Objective - Vital Signs Vital signs: Vital Signs Temp 97.8 F 11/19/21 14:30 Pulse 89 11/19/21 14:30 Resp 15 11/19/21 14:30 BP 93/53 11/19/21 14:30 Pulse Ox 99 11/19/21 14:30 Intake & Output 11/18/21 11/19/21 11/19/21 18:59 06:59 18:59 Intake Total 236 Balance 236 Weight 68.039 kg Intake: Oral 236 Other: Voiding Method Urinal Urinal Urinal Diaper Diaper Diaper # Voids 1 1 1 # Bowel Movements 1 - Constitutional General appearance: Present: cooperative, no acute distress, thin - EENT EENT Comment(s): rt cataract Eyes: Present: anicteric sclerae ENT: Present: hard of hearing - Respiratory Respiratory: bilateral: CTA - Cardiovascular Heart sounds: normal: S1, S2 - Peripheral edema leg Peripheral Edema: bilateral: None - Gastrointestinal General gastrointestinal: Present: normal bowel sounds, soft - Integumentary Integumentary: Present: normal - Musculoskeletal Musculoskeletal: Present: generalized weakness, strength equal bilaterally - Psychiatric Psychiatric: Present: A&O x's 3, appropriate affect, intact judgment & insight - Labs CBC & Chem 7: 11/18/21 05:46 11/18/21 05:46 Labs: Abnormal Lab Results - Last 24 Hours (Table) 11/18/21 11/18/21 11/18/21 Range/Units 16:49 16:49 17:27 D-Dimer (<0.60) mg/L FEU POC Glucose (mg/dL) 262 H (75-99) mg/dL Iron 36 L (65-175) ug/dL % Saturation 11.68 L (15.00-50.00) RBC Folate 902 H (280 - 791) ng/mL 11/18/21 11/19/21 11/19/21 Range/Units 21:46 07:04 07:20 D-Dimer 1.83 H (<0.60) mg/L FEU POC Glucose (mg/dL) 151 H 185 H (75-99) mg/dL Iron (65-175) ug/dL % Saturation (15.00-50.00) RBC Folate (280 - 791) ng/mL 11/19/21 Range/Units 12:16 D-Dimer (<0.60) mg/L FEU POC Glucose (mg/dL) 320 H (75-99) mg/dL Iron (65-175) ug/dL % Saturation (15.00-50.00) RBC Folate (280 - 791) ng/mL Assessment and Plan (1) Elevated d-dimer Narrative/Plan: Results decreased significantly on 2nd lab draw. Tpday d-dimer cont to decrease. Suspect r/t acute intractable epistaxis. He cont to have his nose packed. Doppler of BLE/CTA neg for DVT/PE Coags, DIC work up negative. Current Visit: Yes Status: Acute Priority: High Code(s): R79.89 - OTHER SPECIFIED ABNORMAL FINDINGS OF BLOOD CHEMISTRY SNOMED Code(s): 649605246 (2) Iron deficiency anemia Narrative/Plan: Iron deficiency on lab work up. IV iron and oral iron ordered. 1 mo f/u Hematology Pt had colonoscopy many years ago. He was seen by Dr. Urbano. Consult placed but, can be seen outpt for f/u and endoscopy if felt appropriate. Current Visit: Yes Status: Acute Priority: Medium Code(s): D50.9 - IRON DEFICIENCY ANEMIA, UNSPECIFIED SNOMED Code(s): 80181964 Plan: Doctor attests: I performed a history and physical examination of this patient, developed impression and plan of care, discussed with dictator. I agree with dictators note, documented as a scribe.
[2021-11-19] MEDS: BRIMONIDINE TARTRATE 0.2% DROPS 5 ML BTL BOTH EYES SCH ×2 (16:16→20:37)
[2021-11-19] MEDS: DORZOLAMIDE HCL 2% DROPS 10 ML BTL LEFT EYE SCH ×2 (16:16→20:38)
[2021-11-19] MEDS: TIMOLOL 0.5% OPHTH DROPS 5 ML BTL BOTH EYES SCH (16:16)
[2021-11-19 16:26] LABS: Glucose,Whole Blood 419 mg/dL (75-99)
[2021-11-19 17:38] LABS: Glucose,Whole Blood 379 mg/dL (75-99)
[2021-11-19] MEDS: SODIUM FERRIC GLUCONAT-SUCROSE 125 MG in SODIUM CHLORIDE 0.9% 100 ML IVPB SCH (17:44)
[2021-11-19 18:19] LABS: Glucose,Whole Blood 333 mg/dL (75-99)
--- NOTE | 2021-11-19 19:31 | P.PN ---
Subjective Progress Note Date: 11/19/21 Erik Cha, is an 87-year-old male who presented to [facility] emergency room with a chief complaint of generalized weakness. Patient was admitted to the hospital with COVID-19 pneumonia in October he was discharged to a half-way for rehabilitation and was recently discharged maryanne e, patient has been tired he has poor oral intake, he was also complaining of shortness of breath with any activity. He was evaluated in the emergency room vital examination on presentation revealed a temperature of 97.4 pulse 73 respiration 22 blood pressure 102/69 pulse ox 100% on 4 L nasal cannula Laboratory data revealed a white blood count of 5.4 hemoglobin 10.0 platelet count 690 sodium 141 potassium 4.6 chloride 123 CO2 19 BUN 63 creatinine 1.97 magnesium 0.9 urine analysis revealed evidence of urinary tract infection with more than 182 white blood cells per high-power field with many bacteria and many yeast, Mendez virus PCR was positive. Testing in the emergency room revealed chest x-ray revealed evidence of atypical pneumonia with progression from previous studies Patient was admitted to medical floor for further evaluation and treatment. On 11/18/2021 patient was seen and examined on the medical floor he is alert and oriented 3 in no apparent distress there is no fever or chills no headache or dizziness no chest pain no shortness of breath no cough no nausea or vomiting no abdominal pain no diarrhea no blood in the stools no burning with urination no frequency or urgency and no hematuria, patient was evaluated by cardiology, we are awaiting echocardiogram results, and awaiting evaluation by hematology in that regard to elevated d-dimer On 09/18/2022 patient was seen and examined on the medical floor he is alert and oriented 3 in no apparent distress he states that he is feeling some blood dripping in the back of his throat otherwise he denies any complaints there is no fever or chills no headache or dizziness no chest pain no shortness of breath no cough no nausea or vomiting no abdominal pain no diarrhea and no urinary symptoms, patient presented to ER with nosebleed and had packing to his right nostril, he was discharged home he returned after having a syncopal episode, d- dimer was significantly elevated at 34 and has been declining, pro-calcitonin slightly high at 0.14 no clear evidence of any infection at this time chest x- ray suggestive of pneumonia however computed tomography scan of the chest did not reveal evidence of pneumonia there was no evidence of pulmonary embolism on CT angiogram of the chest and no evidence of lower extremity DVT on bilateral lower extremity Doppler. At this time patient is being evaluated by hematology to rule out DIC we are still awaiting input from ENT and infectious disease will follow closely Objective - Vital Signs Vital signs: Vital Signs Temp 97.8 F 11/19/21 14:30 Pulse 89 11/19/21 14:30 Resp 15 11/19/21 14:30 BP 93/53 11/19/21 14:30 Pulse Ox 99 11/19/21 14:30 Intake & Output 11/18/21 11/19/21 11/19/21 18:59 06:59 18:59 Intake Total 236 Balance 236 Weight 68.039 kg Intake: Oral 236 Other: Voiding Method Urinal Urinal Urinal Diaper Diaper Diaper # Voids 1 1 1 # Bowel Movements 1 - Exam In general patient is alert and oriented x 3 in no distress HEENT head normocephalic and atraumatic Neck is supple no JVD no goiter no lymphadenopathy no carotid bruit Chest examination is clear to auscultation no crackles no wheezing Cardiac exam reveals regular heart sounds S1 and S2 no gallops no murmurs Abdomen is soft nontender no organomegaly with normal bowel sounds Extremity exam reveals no edema no cyanosis or clubbing Neurological examination reveals no gross focal deficits - Labs CBC & Chem 7: 11/18/21 05:46 11/18/21 05:46 Labs: Abnormal Lab Results - Last 24 Hours (Table) 11/18/21 11/18/21 11/18/21 Range/Units 16:49 16:49 21:46 D-Dimer (<0.60) mg/L FEU POC Glucose (mg/dL) 151 H (75-99) mg/dL Iron 36 L (65-175) ug/dL % Saturation 11.68 L (15.00-50.00) RBC Folate 902 H (280 - 791) ng/mL 11/19/21 11/19/21 11/19/21 Range/Units 07:04 07:20 12:16 D-Dimer 1.83 H (<0.60) mg/L FEU POC Glucose (mg/dL) 185 H 320 H (75-99) mg/dL Iron (65-175) ug/dL % Saturation (15.00-50.00) RBC Folate (280 - 791) ng/mL 11/19/21 11/19/21 11/19/21 Range/Units 16:25 17:37 18:18 D-Dimer (<0.60) mg/L FEU POC Glucose (mg/dL) 419 H 379 H 333 H (75-99) mg/dL Iron (65-175) ug/dL % Saturation (15.00-50.00) RBC Folate (280 - 791) ng/mL Assessment and Plan Plan: Syncope with collapse Dehydration with elevated BUN and creatinine on presentation Hyperglycemia on presentation Underlying history of [id number] diabetes mellitus Underlying history of hyperlipidemia Underlying history of hypothyroidism Underlying history of benign prostatic hypertrophy Nasal bleeding with right nostril packing Elevated d-dimer cause is not clear consultation for hematology was initiated At this time patient is admitted to medical floor Will start gentle IV hydration Home medications reviewed and reordered, will hold metformin at this time due to elevated BUN and creatinine, will cover with insulin sliding scale For DVT prophylaxis we will use Lovenox, for GI prophylaxis Protonix Serial EKGs and cardiac enzymes are ordered, cardiology consultation was requested Will check echocardiogram and carotid Doppler
[2021-11-19] MEDS: ATORVASTATIN 10 MG TAB PO SCH (20:37)
[2021-11-19] MEDS: LATANOPROST 0.005% OPHTH DROPS 2.5 ML BTL BOTH EYES SCH (20:38)
[2021-11-19 20:48] LABS: Glucose,Whole Blood 292 mg/dL (75-99)
[2021-11-20] MEDS: LEVOTHYROXINE 25 MCG TAB PO SCH (05:54)
[2021-11-20] MEDS: TIMOLOL 0.5% OPHTH DROPS 5 ML BTL BOTH EYES SCH ×3 (05:54→20:38)
[2021-11-20 07:27] LABS: Glucose,Whole Blood 178 mg/dL (75-99)
[2021-11-20 08:10] LABS: Methylmalonic Acid 0.2 umol/L (<0.40)
[2021-11-20] MEDS: PANTOPRAZOLE 40 MG TABLET PO SCH (08:47)
[2021-11-20] MEDS: MULTIVITAMINS, THERA 1 EACH TAB PO SCH (08:47)
[2021-11-20] MEDS: LORATADINE 10 MG TAB PO SCH (08:47)
[2021-11-20] MEDS: TAMSULOSIN 0.4 MG CAP.ER.24H PO SCH (08:47)
[2021-11-20] MEDS: INSULIN ASPART (NovoLOG) 100 UNIT/ML VIAL SQ SCH ×4 (08:48→22:30)
[2021-11-20] MEDS: SODIUM FERRIC GLUCONAT-SUCROSE 125 MG in SODIUM CHLORIDE 0.9% 100 ML IVPB SCH (08:50)
[2021-11-20] MEDS: BRIMONIDINE TARTRATE 0.2% DROPS 5 ML BTL BOTH EYES SCH ×2 (08:56→20:37)
[2021-11-20] MEDS: DORZOLAMIDE HCL 2% DROPS 10 ML BTL LEFT EYE SCH ×2 (08:58→20:38)
[2021-11-20] MEDS: VIT A,C & E-LUTEIN-MINERALS 1 EACH TAB PO SCH (09:08)
[2021-11-20 09:37] LABS: Basophils # (A) 0.03 X 10*3/uL (0.00-0.10); Basophils % (A) 0.4 %; Eosinophils # (A) 0.63 X 10*3/uL (0.04-0.35); Eosinophils % (A) 9.2 %; HCT 25.4 % (39.6-50.0); HGB 8.5 g/dL (13.0-17.0); Immature Grans, Automated 0.4 %; Lymphocytes # (A) 1.34 X 10*3/uL (0.90-5.00); Lymphocytes % (A) 19.6 %; MCH 31.1 pg (27.0-32.0); MCHC 33.5 g/dL (32.0-37.0); Mean Platelet Volume 10.8 fL (9.5-12.2); Monocytes # (A) 0.61 X 10*3/uL (0.20-1.00); Monocytes % (A) 8.9 %; NRBC Per 100 WBC 0 /100 WBCS (0.0-0.0); Neutrophils # (A) 4.21 X 10*3/uL (1.80-7.70); Neutrophils % (A) 61.5 %; Platelet Count 187 X 10*3/uL (140-440); RBC 2.73 X 10*6/uL (4.40-5.60); RDW 15.1 % (11.5-14.5); WBC 6.85 X 10*3/uL (4.50-10.00)
[2021-11-20 09:45] LABS: Albumin 3.3 g/dL (3.8-4.9); Albumin/Globulin Ratio 0.95 (1.60-3.17); BUN/Creat Ratio 24.29 Ratio (12.00-20.00); Blood Urea Nitrogen 17.2 mg/dL (9.0-27.0); Calcium 8.2 mg/dL (8.7-10.3); Carbon Dioxide 21.6 mmol/L (20.0-27.5); Globulin 3.5 g/dL (1.6-3.3); Non-African American GFR(CKD) 86.3 (60.0-200.0); Total Bilirubin 0.4 mg/dL (0.30-1.20); Total Protein 6.8 g/dL (6.2-8.2)
[2021-11-20 12:28] LABS: Glucose,Whole Blood 380 mg/dL (75-99)
[2021-11-20] MEDS: FERROUS SULFATE 325 MG TAB PO SCH (12:43)
--- NOTE | 2021-11-20 12:43 | P.PN ---
Subjective Progress Note Date: 11/20/21 Principal diagnosis: Epistaxis, elevated d-dimer In f/u today pt denies any new c/o, no bleeding at this time. Objective - Vital Signs Vital signs: Vital Signs Temp 97.8 F 11/20/21 07:20 Pulse 80 11/20/21 07:20 Resp 18 11/20/21 08:48 BP 113/62 11/20/21 07:20 Pulse Ox 100 11/20/21 07:20 Intake & Output 11/19/21 11/20/21 11/20/21 18:59 06:59 18:59 Intake Total 236 Balance 236 Intake: Oral 236 Other: Voiding Method Urinal Urinal Diaper Diaper # Voids 1 - Constitutional General appearance: Present: cooperative, no acute distress, thin - EENT ENT: Present: hearing grossly normal - Respiratory Details: resp even and unlabored - Neurologic Neurologic: Present: CNII-XII intact - Musculoskeletal Musculoskeletal: Present: generalized weakness - Psychiatric Psychiatric: Present: A&O x's 3, appropriate affect, intact judgment & insight - Labs CBC & Chem 7: 11/20/21 06:02 11/20/21 06:02 Labs: Abnormal Lab Results - Last 24 Hours (Table) 11/18/21 11/19/21 11/19/21 Range/Units 16:49 16:25 17:37 RBC (4.40-5.60) X 10*6/uL Hgb (13.0-17.0) g/dL Hct (39.6-50.0) % RDW (11.5-14.5) % Eosinophils # (0.04-0.35) X 10*3/uL Sodium (135-145) mmol/L BUN/Creatinine Ratio (12.00-20.00) Ratio Glucose (70-110) mg/dL POC Glucose (mg/dL) 419 H 379 H (75-99) mg/dL Calcium (8.7-10.3) mg/dL Albumin (3.8-4.9) g/dL Globulin (1.6-3.3) g/dL Albumin/Globulin Ratio (1.60-3.17) g/dL RBC Folate 902 H (280 - 791) ng/mL 11/19/21 11/19/21 11/20/21 Range/Units 18:18 20:47 06:02 RBC 2.73 L (4.40-5.60) X 10*6/uL Hgb 8.5 L (13.0-17.0) g/dL Hct 25.4 L (39.6-50.0) % RDW 15.1 H (11.5-14.5) % Eosinophils # 0.63 H (0.04-0.35) X 10*3/uL Sodium (135-145) mmol/L BUN/Creatinine Ratio (12.00-20.00) Ratio Glucose (70-110) mg/dL POC Glucose (mg/dL) 333 H 292 H (75-99) mg/dL Calcium (8.7-10.3) mg/dL Albumin (3.8-4.9) g/dL Globulin (1.6-3.3) g/dL Albumin/Globulin Ratio (1.60-3.17) g/dL RBC Folate (280 - 791) ng/mL 11/20/21 11/20/21 11/20/21 Range/Units 06:02 07:25 12:26 RBC (4.40-5.60) X 10*6/uL Hgb (13.0-17.0) g/dL Hct (39.6-50.0) % RDW (11.5-14.5) % Eosinophils # (0.04-0.35) X 10*3/uL Sodium 131 L (135-145) mmol/L BUN/Creatinine Ratio 24.29 H (12.00-20.00) Ratio Glucose 151 H (70-110) mg/dL POC Glucose (mg/dL) 178 H 380 H (75-99) mg/dL Calcium 8.2 L (8.7-10.3) mg/dL Albumin 3.3 L (3.8-4.9) g/dL Globulin 3.5 H (1.6-3.3) g/dL Albumin/Globulin Ratio 0.95 L (1.60-3.17) g/dL RBC Folate (280 - 791) ng/mL Assessment and Plan (1) Elevated d-dimer Narrative/Plan: Cont to decrease, 1.8 yesterday. Suspect r/t acute intractable epistaxis, which is currently controlled. He cont to have his nose packed. Doppler of BLE/CTA neg for DVT/PE Current Visit: Yes Status: Acute Priority: High Code(s): R79.89 - OTHER SPECIFIED ABNORMAL FINDINGS OF BLOOD CHEMISTRY SNOMED Code(s): 415882546 (2) Iron deficiency anemia Narrative/Plan: Iron deficiency on lab work up. IV iron and oral iron ordered. 1 mo f/u Hematology Pt had colonoscopy many years ago. He was seen by Dr. Urbano. Can be seen outpt for f/u and endoscopy if felt appropriate. Current Visit: Yes Status: Acute Priority: Medium Code(s): D50.9 - IRON DEFICIENCY ANEMIA, UNSPECIFIED SNOMED Code(s): 70107937 Plan: Hold asa and lovenox due to intractable epistaxis on admit. Pending ENT evaluation, impression and recommendations, and, see if epistaxis has been controlled with packing. SCDs for DVT prophylaxis. Doctor attests: I performed a history and physical examination of this patient, developed impression and plan of care, discussed with dictator. I agree with dictators note, documented as a scribe.
--- NOTE | 2021-11-20 17:00 | P.GSCN ---
History of Present Illness Consult date: 11/20/21 Reason for Consult: Remove nasal pack after epistaxis Requesting physician: Leobardo Botello History of present illness: This is an 86-year-old white male who was admitted for scalp contusion from a syncopal episode and had a recent epistaxis 3 days ago and had a right nasal pack inserted. He is not had any bleeding for the last 3 days and denies any frequent nosebleeds prior to this episode. He does not remember the events of this fall and denies any nasal trauma. The packs been placed for over 3 days and removal is appropriate. He is requesting removal of this pack. He is on some blood thinners first TIA and other issues that we will only blood thinners until tomorrow morning when they can resume. Review of Systems - Constitutional Reports as per HPI - EENT Ears, nose, mouth and throat: Reports as per HPI - Cardiovascular Reports as per HPI - Respiratory Reports as per HPI - Gastrointestinal Reports as per HPI - Genitourinary Reports as per HPI - Musculoskeletal Reports as per HPI - Integumentary Reports as per HPI - Neurological Reports as per HPI - Psychiatric Reports as per HPI - Endocrine Reports as per HPI - Hematologic/Lymphatic Reports as per HPI - Allergic/Immunologic Reports as per HPI Past Medical History Past Medical History: CVA/TIA, Diabetes Mellitus, Eye Disorder, Hyperlipidemia, Hypertension, Prostate Disorder, Thyroid Disorder, Vascular Disorder Additional Past Medical History / Comment(s): CVA with R eye blindness, bilateral glaucoma, past HTN but then running low blood pressures and taken off rx, epistaxis, NIDDM type II, BPH, sinus problems, hypothyroid, PVD/L leg. History of Any Multi-Drug Resistant Organisms: None Reported Past Surgical History: Appendectomy, Cholecystectomy Additional Past Surgical History / Comment(s): Colonoscopy Past Anesthesia/Blood Transfusion Reactions: No Reported Reaction Past Psychological History: No Psychological Hx Reported Smoking Status: Never smoker - Past Family History Father Family Medical History: Myocardial Infarction ([place]) Additional Family Medical History / Comment(s): Father from a [place] at the age of 50 yrs. Mother Family Medical History: Diabetes Mellitus, Liver Disease Additional Family Medical History / Comment(s): Hepatitis. Medications and Allergies Home Medications Medication Instructions Recorded Confirmed Type Amoxic-Pot Clav 875-125Mg 1 tab PO BID 10 Days #20 tab 11/17/21 11/17/21 Rx [Augmentin 875-125] Aspirin EC [Ecotrin] 325 mg PO DAILY 11/17/21 11/17/21 History Atorvastatin [Lipitor] 10 mg PO HS 11/17/21 11/17/21 History Brimonidine Tartrate/Timolol 1 drop BOTH EYES BID 11/17/21 11/17/21 History [Combigan 0.2%-0.5% Eye Drops] Brinzolamide [Azopt 1% Ophth Susp] 1 drop LEFT EYE BID 11/17/21 11/17/21 History Latanoprost [Xalatan 0.005%] 1 drop BOTH EYES HS 11/17/21 11/17/21 History Levothyroxine Sodium [Synthroid] 25 mcg PO DAILY 11/17/21 11/17/21 History Loratadine [Claritin] 10 mg PO DAILY 11/17/21 11/17/21 History Multivitamins, Thera [Multivitamin 1 tab PO DAILY 11/17/21 11/17/21 History (formulary)] Tamsulosin [Flomax] 0.4 mg PO DAILY 11/17/21 11/17/21 History Vit C/E/Zn/Coppr/Lutein/Zeaxan 1 cap PO DAILY 11/17/21 11/17/21 History [Preservision Areds 2 Softgel] metFORMIN HCL [Glucophage] 500 mg PO BID 11/17/21 11/17/21 History Allergies Allergy/AdvReac Type Severity Reaction Status Date / Time No Known Allergies Allergy Verified 11/17/21 08:19 Surgical - Exam Osteopathic Statement: *. No significant issues noted on an osteopathic structural exam other than those noted in the History and Physical/Consult. Vital Signs Pulse Resp BP Pulse Ox 105 H 18 129/68 97 11/17/21 07:39 11/17/21 07:39 11/17/21 07:39 11/17/21 07:39 - General well developed, well nourished, no distress - Eyes Patient has an opacified cornea on the right side and is blind on the right side he has some dilatatiopupil n on the left. - ENT Nasal pack removed on the right side no bleeding is encountered. normal pinna, normal nares, normal mucosa, no hearing loss - Neck no masses, no bruits, trachea midline, no lymphadectomy, no venous distension - Respiratory normal expansion - Integumentary no rash, no growths - Neurologic normal coordination, normal sensation - Musculoskeletal normal posture - Psychiatric oriented to time, oriented to person, oriented to place, speech is normal, memory intact Results - Labs 11/20/21 06:02 11/20/21 06:02 Abnormal Lab Results - Last 24 Hours (Table) 11/19/21 11/19/21 11/19/21 Range/Units 17:37 18:18 20:47 RBC (4.40-5.60) X 10*6/uL Hgb (13.0-17.0) g/dL Hct (39.6-50.0) % RDW (11.5-14.5) % Eosinophils # (0.04-0.35) X 10*3/uL Sodium (135-145) mmol/L BUN/Creatinine Ratio (12.00-20.00) Ratio Glucose (70-110) mg/dL POC Glucose (mg/dL) 379 H 333 H 292 H (75-99) mg/dL Calcium (8.7-10.3) mg/dL Albumin (3.8-4.9) g/dL Globulin (1.6-3.3) g/dL Albumin/Globulin Ratio (1.60-3.17) g/dL 11/20/21 11/20/21 11/20/21 Range/Units 06:02 06:02 07:25 RBC 2.73 L (4.40-5.60) X 10*6/uL Hgb 8.5 L (13.0-17.0) g/dL Hct 25.4 L (39.6-50.0) % RDW 15.1 H (11.5-14.5) % Eosinophils # 0.63 H (0.04-0.35) X 10*3/uL Sodium 131 L (135-145) mmol/L BUN/Creatinine Ratio 24.29 H (12.00-20.00) Ratio Glucose 151 H (70-110) mg/dL POC Glucose (mg/dL) 178 H (75-99) mg/dL Calcium 8.2 L (8.7-10.3) mg/dL Albumin 3.3 L (3.8-4.9) g/dL Globulin 3.5 H (1.6-3.3) g/dL Albumin/Globulin Ratio 0.95 L (1.60-3.17) g/dL 11/20/21 Range/Units 12:26 RBC (4.40-5.60) X 10*6/uL Hgb (13.0-17.0) g/dL Hct (39.6-50.0) % RDW (11.5-14.5) % Eosinophils # (0.04-0.35) X 10*3/uL Sodium (135-145) mmol/L BUN/Creatinine Ratio (12.00-20.00) Ratio Glucose (70-110) mg/dL POC Glucose (mg/dL) 380 H (75-99) mg/dL Calcium (8.7-10.3) mg/dL Albumin (3.8-4.9) g/dL Globulin (1.6-3.3) g/dL Albumin/Globulin Ratio (1.60-3.17) g/dL Diabetes panel 11/20/21 Range/Units 06:02 Sodium 131 L (135-145) mmol/L Potassium 4.0 (3.5-5.5) mmol/L Chloride 100 (96-109) mmol/L Carbon Dioxide 21.6 (20.0-27.5) mmol/L BUN 17.2 (9.0-27.0) mg/dL Creatinine 0.7 (0.6-1.5) mg/dL Glucose 151 H (70-110) mg/dL Calcium 8.2 L (8.7-10.3) mg/dL AST 20 (14-35) U/L ALT 23 (10-49) U/L Alkaline Phosphatase 58 (41-126) U/L Total Protein 6.8 (6.2-8.2) g/dL Albumin 3.3 L (3.8-4.9) g/dL Calcium panel 11/20/21 Range/Units 06:02 Calcium 8.2 L (8.7-10.3) mg/dL Albumin 3.3 L (3.8-4.9) g/dL Pituitary panel 11/20/21 Range/Units 06:02 Sodium 131 L (135-145) mmol/L Potassium 4.0 (3.5-5.5) mmol/L Chloride 100 (96-109) mmol/L Carbon Dioxide 21.6 (20.0-27.5) mmol/L BUN 17.2 (9.0-27.0) mg/dL Creatinine 0.7 (0.6-1.5) mg/dL Glucose 151 H (70-110) mg/dL Calcium 8.2 L (8.7-10.3) mg/dL Adrenal panel 11/20/21 Range/Units 06:02 Sodium 131 L (135-145) mmol/L Potassium 4.0 (3.5-5.5) mmol/L Chloride 100 (96-109) mmol/L Carbon Dioxide 21.6 (20.0-27.5) mmol/L BUN 17.2 (9.0-27.0) mg/dL Creatinine 0.7 (0.6-1.5) mg/dL Glucose 151 H (70-110) mg/dL Calcium 8.2 L (8.7-10.3) mg/dL Total Bilirubin 0.40 (0.30-1.20) mg/dL AST 20 (14-35) U/L ALT 23 (10-49) U/L Alkaline Phosphatase 58 (41-126) U/L Total Protein 6.8 (6.2-8.2) g/dL Albumin 3.3 L (3.8-4.9) g/dL Assessment and Plan (1) Epistaxis Current Visit: Yes Status: Acute Code(s): R04.0 - EPISTAXIS SNOMED Code(s): 553119578 Plan: I removed the patient's right nasal pack and he tolerated this well. No bleeding was encountered and examination was unremarkable other than the scalp c ontusion. I'm having the patient follow up with me in my office and I left my card. He is to call me if any bleeding should recur. Time with Patient: Greater than 30
[2021-11-20] MEDS: ASPIRIN 325 MG TAB PO SCH (17:05)
--- NOTE | 2021-11-20 17:05 | P.PN ---
Subjective Progress Note Date: 11/20/21 Erik Cha, is an 87-year-old male who presented to [facility] emergency room with a chief complaint of generalized weakness. Patient was admitted to the hospital with COVID-19 pneumonia in October he was discharged to a longterm for rehabilitation and was recently discharged maryanne e, patient has been tired he has poor oral intake, he was also complaining of shortness of breath with any activity. He was evaluated in the emergency room vital examination on presentation revealed a temperature of 97.4 pulse 73 respiration 22 blood pressure 102/69 pulse ox 100% on 4 L nasal cannula Laboratory data revealed a white blood count of 5.4 hemoglobin 10.0 platelet count 690 sodium 141 potassium 4.6 chloride 123 CO2 19 BUN 63 creatinine 1.97 magnesium 0.9 urine analysis revealed evidence of urinary tract infection with more than 182 white blood cells per high-power field with many bacteria and many yeast, Mendez virus PCR was positive. Testing in the emergency room revealed chest x-ray revealed evidence of atypical pneumonia with progression from previous studies Patient was admitted to medical floor for further evaluation and treatment. On 11/18/2021 patient was seen and examined on the medical floor he is alert and oriented 3 in no apparent distress there is no fever or chills no headache or dizziness no chest pain no shortness of breath no cough no nausea or vomiting no abdominal pain no diarrhea no blood in the stools no burning with urination no frequency or urgency and no hematuria, patient was evaluated by cardiology, we are awaiting echocardiogram results, and awaiting evaluation by hematology in that regard to elevated d-dimer On 09/18/2022 patient was seen and examined on the medical floor he is alert and oriented 3 in no apparent distress he states that he is feeling some blood dripping in the back of his throat otherwise he denies any complaints there is no fever or chills no headache or dizziness no chest pain no shortness of breath no cough no nausea or vomiting no abdominal pain no diarrhea and no urinary symptoms, patient presented to ER with nosebleed and had packing to his right nostril, he was discharged home he returned after having a syncopal episode, d- dimer was significantly elevated at 34 and has been declining, pro-calcitonin slightly high at 0.14 no clear evidence of any infection at this time chest x- ray suggestive of pneumonia however computed tomography scan of the chest did not reveal evidence of pneumonia there was no evidence of pulmonary embolism on CT angiogram of the chest and no evidence of lower extremity DVT on bilateral lower extremity Doppler. At this time patient is being evaluated by hematology to rule out DIC we are still awaiting input from ENT and infectious disease will follow closely On 11/20/2021 patient was seen and examined on the medical floor he is alert and oriented 3 in no distress he was evaluated by ENT today and packing was removed from the right nostril no evidence of further bleeding at this time. There is no fever or chills no headache or dizziness no chest pain no shortness of breath no cough no nausea or vomiting no abdominal pain no diarrhea and no urinary symptoms as time will continue to monitor plan for discharge to home tomorrow. Objective - Vital Signs Vital signs: Vital Signs Temp 97.6 F 11/20/21 15:25 Pulse 86 11/20/21 15:25 Resp 16 11/20/21 15:25 BP 113/61 11/20/21 15:25 Pulse Ox 100 11/20/21 15:25 Intake & Output 11/19/21 11/20/21 11/20/21 18:59 06:59 18:59 Intake Total 236 90 Balance 236 90 Intake: Oral 236 90 Other: Voiding Method Urinal Urinal Diaper Diaper # Voids 1 3 # Bowel Movements 1 - Exam In general patient is alert and oriented x 3 in no distress HEENT head normocephalic and atraumatic Neck is supple no JVD no goiter no lymphadenopathy no carotid bruit Chest examination is clear to auscultation no crackles no wheezing Cardiac exam reveals regular heart sounds S1 and S2 no gallops no murmurs Abdomen is soft nontender no organomegaly with normal bowel sounds Extremity exam reveals no edema no cyanosis or clubbing Neurological examination reveals no gross focal deficits - Labs CBC & Chem 7: 11/20/21 06:02 11/20/21 06:02 Labs: Abnormal Lab Results - Last 24 Hours (Table) 11/19/21 11/19/21 11/19/21 Range/Units 17:37 18:18 20:47 RBC (4.40-5.60) X 10*6/uL Hgb (13.0-17.0) g/dL Hct (39.6-50.0) % RDW (11.5-14.5) % Eosinophils # (0.04-0.35) X 10*3/uL Sodium (135-145) mmol/L BUN/Creatinine Ratio (12.00-20.00) Ratio Glucose (70-110) mg/dL POC Glucose (mg/dL) 379 H 333 H 292 H (75-99) mg/dL Calcium (8.7-10.3) mg/dL Albumin (3.8-4.9) g/dL Globulin (1.6-3.3) g/dL Albumin/Globulin Ratio (1.60-3.17) g/dL 11/20/21 11/20/21 11/20/21 Range/Units 06:02 06:02 07:25 RBC 2.73 L (4.40-5.60) X 10*6/uL Hgb 8.5 L (13.0-17.0) g/dL Hct 25.4 L (39.6-50.0) % RDW 15.1 H (11.5-14.5) % Eosinophils # 0.63 H (0.04-0.35) X 10*3/uL Sodium 131 L (135-145) mmol/L BUN/Creatinine Ratio 24.29 H (12.00-20.00) Ratio Glucose 151 H (70-110) mg/dL POC Glucose (mg/dL) 178 H (75-99) mg/dL Calcium 8.2 L (8.7-10.3) mg/dL Albumin 3.3 L (3.8-4.9) g/dL Globulin 3.5 H (1.6-3.3) g/dL Albumin/Globulin Ratio 0.95 L (1.60-3.17) g/dL 11/20/21 Range/Units 12:26 RBC (4.40-5.60) X 10*6/uL Hgb (13.0-17.0) g/dL Hct (39.6-50.0) % RDW (11.5-14.5) % Eosinophils # (0.04-0.35) X 10*3/uL Sodium (135-145) mmol/L BUN/Creatinine Ratio (12.00-20.00) Ratio Glucose (70-110) mg/dL POC Glucose (mg/dL) 380 H (75-99) mg/dL Calcium (8.7-10.3) mg/dL Albumin (3.8-4.9) g/dL Globulin (1.6-3.3) g/dL Albumin/Globulin Ratio (1.60-3.17) g/dL Assessment and Plan Plan: Syncope with collapse Dehydration with elevated BUN and creatinine on presentation Hyperglycemia on presentation Underlying history of fpc-melwvyj-myjipjrev diabetes mellitus Underlying history of hyperlipidemia Underlying history of hypothyroidism Underlying history of benign prostatic hypertrophy Nasal bleeding with right nostril packing Elevated d-dimer cause is not clear consultation for hematology was initiated At this time patient is admitted to medical floor Will start gentle IV hydration Home medications reviewed and reordered, will hold metformin at this time due to elevated BUN and creatinine, will cover with insulin sliding scale For DVT prophylaxis we will use Lovenox, for GI prophylaxis Protonix Serial EKGs and cardiac enzymes are ordered, cardiology consultation was requested Will check echocardiogram and carotid Doppler
[2021-11-20] MEDS: ENOXAPARIN 40 MG/0.4 ML SYRINGE SQ SCH (17:06)
[2021-11-20 17:31] LABS: Glucose,Whole Blood 247 mg/dL (75-99)
[2021-11-20] MEDS: ATORVASTATIN 10 MG TAB PO SCH (20:37)
[2021-11-20] MEDS: LATANOPROST 0.005% OPHTH DROPS 2.5 ML BTL BOTH EYES SCH (20:38)
[2021-11-20 21:46] LABS: Glucose,Whole Blood 270 mg/dL (75-99)
--- NOTE | 2021-11-20 23:18 | P.CONS ---
History of Present Illness - Reason for Consult Consult date: 11/20/21 Questionable sepsis Requesting physician: Leobardo Botello - Chief Complaint passed out 1 day - History of Present Illness Patient is 86-year-old male presenting to the hospital 3 days ago for evaluation of a syncopal episode currently the patient was seen in the ER earlier for a nosebleed which was stabilized and the patient was observed and discharged home patient states he remembers going to bed and getting up at 630 to go to the bathroom and he was subsequently found on the floor patient did not recall any specific symptoms denies having any headache no chest pain shortness of breath or cough no abdominal pain or any diarrhea patient on presentation to the hospital was afebrile and no fever has been recorded subsequently patient did have a normal white count D-dimer was elevated creatinine was normal liver enzymes are normal procalcitonin 0.14 urine is negative walker PCR was negative patient did have a chest x-ray left lower lobe infiltrate correlate for pneumonia patient did have a CT angiogram of the chest no evidence of pulmonary embolism predominantly patchy peripheral interstitial pulmonary edema consistent with pulmonary fibrosis infectious disease was consulted with concern for possible sepsis patient currently denies having any headache no further nosebleed no chest pain or shortness of breath minimal cough no abdominal pain no diarrhea no urinary symptoms Review of Systems Positive point has been mentioned in the HPI rest of the systems are negative Past Medical History Past Medical History: CVA/TIA, Diabetes Mellitus, Eye Disorder, Hyperlipidemia, Hypertension, Prostate Disorder, Thyroid Disorder, Vascular Disorder Additional Past Medical History / Comment(s): CVA with R eye blindness, bilateral glaucoma, past HTN but then running low blood pressures and taken off rx, epistaxis, NIDDM type II, BPH, sinus problems, hypothyroid, PVD/L leg. History of Any Multi-Drug Resistant Organisms: None Reported Past Surgical History: Appendectomy, Cholecystectomy Additional Past Surgical History / Comment(s): Colonoscopy Past Anesthesia/Blood Transfusion Reactions: No Reported Reaction Past Psychological History: No Psychological Hx Reported Smoking Status: Never smoker - Past Family History Father Family Medical History: Myocardial Infarction ([place]) Additional Family Medical History / Comment(s): Father from a [place] at the age of 50 yrs. Mother Family Medical History: Diabetes Mellitus, Liver Disease Additional Family Medical History / Comment(s): Hepatitis. Medications and Allergies Home Medications Medication Instructions Recorded Confirmed Type Amoxic-Pot Clav 875-125Mg 1 tab PO BID 10 Days #20 tab 11/17/21 11/17/21 Rx [Augmentin 875-125] Aspirin EC [Ecotrin] 325 mg PO DAILY 11/17/21 11/17/21 History Atorvastatin [Lipitor] 10 mg PO HS 11/17/21 11/17/21 History Brimonidine Tartrate/Timolol 1 drop BOTH EYES BID 11/17/21 11/17/21 History [Combigan 0.2%-0.5% Eye Drops] Brinzolamide [Azopt 1% Ophth Susp] 1 drop LEFT EYE BID 11/17/21 11/17/21 History Latanoprost [Xalatan 0.005%] 1 drop BOTH EYES HS 11/17/21 11/17/21 History Levothyroxine Sodium [Synthroid] 25 mcg PO DAILY 11/17/21 11/17/21 History Loratadine [Claritin] 10 mg PO DAILY 11/17/21 11/17/21 History Multivitamins, Thera [Multivitamin 1 tab PO DAILY 11/17/21 11/17/21 History (formulary)] Tamsulosin [Flomax] 0.4 mg PO DAILY 11/17/21 11/17/21 History Vit C/E/Zn/Coppr/Lutein/Zeaxan 1 cap PO DAILY 11/17/21 11/17/21 History [Preservision Areds 2 Softgel] metFORMIN HCL [Glucophage] 500 mg PO BID 11/17/21 11/17/21 History Allergies Allergy/AdvReac Type Severity Reaction Status Date / Time No Known Allergies Allergy Verified 11/17/21 08:19 Physical Exam Vitals: Vital Signs Temp Pulse Resp BP BP Pulse Ox 11/20/21 07:20 97.8 F 80 18 113/62 100 11/20/21 02:33 98.2 F 88 20 110/59 98 11/19/21 20:00 99 11/19/21 19:31 98.5 F 89 20 114/61 99 11/19/21 14:30 97.8 F 89 15 93/53 99 GENERAL DESCRIPTION: An elderly male lying in bed, no distress. No tachypnea or accessory muscle of respiration use. HEENT: Shows Pallor , no scleral icterus. Oral mucous membrane is dry. No pharyngeal erythema or thrush NECK: Trachea central, no thyromegaly. LUNGS: Unlabored breathing. Clear to auscultation anteriorly. No wheeze or crackle. HEART: S1, S2, regular rate and rhythm. No loud murmur ABDOMEN: Soft, no tenderness , guarding or rigidity, no organomegaly EXTREMITIES: No edema of feet. SKIN: No rash, no masses palpable. NEUROLOGICAL: The patient is awake, alert, oriented x2, mood and affect normal. Results CBC & Chem 7: 11/20/21 06:02 11/20/21 06:02 Labs: Abnormal Lab Results - Last 24 Hours (Table) 11/18/21 11/19/21 11/19/21 Range/Units 16:49 12:16 16:25 POC Glucose (mg/dL) 320 H 419 H (75-99) mg/dL RBC Folate 902 H (280 - 791) ng/mL 11/19/21 11/19/21 11/19/21 Range/Units 17:37 18:18 20:47 POC Glucose (mg/dL) 379 H 333 H 292 H (75-99) mg/dL RBC Folate (280 - 791) ng/mL 11/20/21 Range/Units 07:25 POC Glucose (mg/dL) 178 H (75-99) mg/dL RBC Folate (280 - 791) ng/mL Assessment and Plan Plan: 1-Patient is 86-year male presented to the hospital with syncopal episode in this patient did have problem with nosebleed patient did not have any fever during this hospital stay and did have a normal white count patient did have a negative UA CT angiogram of the chest did not show any consolidation to be suspicious for pneumonia and abdominal soft on clinical examination patient is clinically not behaving as sepsis. 2-no need for systemic antibiotic therapy 3-if the patient spike any fever or changes clinical condition, appropriate culture before starting the patient on antibiotics Thank you for this consultation, ID service will follow as needed
[2021-11-21] MEDS: LEVOTHYROXINE 25 MCG TAB PO SCH (04:17)
[2021-11-21 07:44] LABS: Glucose,Whole Blood 190 mg/dL (75-99)
[2021-11-21] MEDS: ASPIRIN 325 MG TAB PO SCH (09:51)
[2021-11-21] MEDS: PANTOPRAZOLE 40 MG TABLET PO SCH (09:51)
[2021-11-21] MEDS: TAMSULOSIN 0.4 MG CAP.ER.24H PO SCH (09:51)
[2021-11-21] MEDS: MULTIVITAMINS, THERA 1 EACH TAB PO SCH (09:51)
[2021-11-21] MEDS: ENOXAPARIN 40 MG/0.4 ML SYRINGE SQ SCH (09:51)
[2021-11-21] MEDS: LORATADINE 10 MG TAB PO SCH (09:51)
[2021-11-21] MEDS: DORZOLAMIDE HCL 2% DROPS 10 ML BTL LEFT EYE SCH (09:52)
[2021-11-21] MEDS: BRIMONIDINE TARTRATE 0.2% DROPS 5 ML BTL BOTH EYES SCH (09:53)
[2021-11-21] MEDS: TIMOLOL 0.5% OPHTH DROPS 5 ML BTL BOTH EYES SCH (09:53)
[2021-11-21] MEDS: VIT A,C & E-LUTEIN-MINERALS 1 EACH TAB PO SCH (09:57)
[2021-11-21] MEDS: INSULIN ASPART (NovoLOG) 100 UNIT/ML VIAL SQ SCH ×2 (10:00→12:33)
[2021-11-21 11:13] VITALS: BMI 20.9
[2021-11-21 11:41] LABS: Glucose,Whole Blood 287 mg/dL (75-99)
--- NOTE | 2021-11-21 11:51 | P.PN ---
Subjective Progress Note Date: 11/21/21 Principal diagnosis: Epistaxis, elevated d-dimer In f/u today packing was removed by ENT, pt denies any bleeding, cough or feeling or taste of blood in the back of his throat Objective - Vital Signs Vital signs: Vital Signs Temp 97.9 F 11/21/21 07:00 Pulse 86 11/21/21 07:00 Resp 20 11/21/21 07:00 BP 127/71 11/21/21 07:00 Pulse Ox 99 11/21/21 07:00 Intake & Output 11/20/21 11/21/21 11/21/21 18:59 06:59 18:59 Intake Total 90 118 Balance 90 118 Weight 68.039 kg Intake: Oral 90 118 Other: Voiding Method Urinal Urinal Diaper Diaper # Voids 3 # Bowel Movements 1 - Constitutional General appearance: Present: cooperative, no acute distress, thin - Musculoskeletal Musculoskeletal: Present: generalized weakness - Psychiatric Psychiatric: Present: A&O x's 3, appropriate affect, intact judgment & insight - Labs CBC & Chem 7: 11/20/21 06:02 11/20/21 06:02 Labs: Abnormal Lab Results - Last 24 Hours (Table) 11/20/21 11/20/21 11/20/21 Range/Units 12:26 17:30 21:44 POC Glucose (mg/dL) 380 H 247 H 270 H (75-99) mg/dL 11/21/21 11/21/21 Range/Units 07:43 11:39 POC Glucose (mg/dL) 190 H 287 H (75-99) mg/dL Assessment and Plan (1) Elevated d-dimer Narrative/Plan: Suspect r/t acute intractable epistaxis, which is now controlled. It was decreasing when lab was checked several days in a row. Current Visit: Yes Status: Acute Priority: High Code(s): R79.89 - OTHER SPECIFIED ABNORMAL FINDINGS OF BLOOD CHEMISTRY SNOMED Code(s): 394681817 (2) Iron deficiency anemia Narrative/Plan: Iron deficiency on lab work up. IV iron and oral iron ordered. 1 mo f/u Hematology Pt had colonoscopy many years ago. He was seen by Dr. Urbano. Can be seen outpt for f/u and endoscopy if felt appropriate. Current Visit: Yes Status: Acute Priority: Medium Code(s): D50.9 - IRON DEFICIENCY ANEMIA, UNSPECIFIED SNOMED Code(s): 81057289 Plan: ENT evaluation, impression and recommendations reviewed. Pt resuming asa with close monitoring Doctor attests: I performed a history and physical examination of this patient, developed impression and plan of care, discussed with dictator. I agree with dictators note, documented as a scribe.
[2021-11-21] MEDS: FERROUS SULFATE 325 MG TAB PO SCH (12:33)
--- NOTE | 2021-11-21 13:05 | P.DS ---
Providers Date of admission: 11/17/21 09:35 Expected date of discharge: 11/21/21 Attending physician: Leobardo Botello Consults: 11/18/21 09:16 Consult Physician Routine Consulting Provider: Isaac Clements Consult Reason/Comments: elevated D-Dimer Do you want consulting provider notified?: Yes 11/19/21 13:19 Consult Physician Routine Consulting Provider: Hima Cristina Consult Reason/Comments: ? sepis Do you want consulting provider notified?: Yes 11/19/21 13:51 Consult Physician Routine Consulting Provider: Reginaldo Oquendo Consult Reason/Comments: nose bleed , remove nose packing Do you want consulting provider notified?: Yes Primary care physician: SULEIMAN Cruz Hospital Course: Diagnosis on discharge: Syncope with collapse Dehydration with elevated BUN and creatinine on presentation Hyperglycemia on presentation Underlying history of htf-ebasqbm-qsujfxwvt diabetes mellitus Underlying history of hyperlipidemia Underlying history of hypothyroidism Underlying history of benign prostatic hypertrophy Nasal bleeding with right nostril packing Elevated d-dimer cause is not clear consultation for hematology was initiated Severe stenosis, in the left internal carotid artery around 70% this will need to be followed as outpatient. Hospital course: Erik Cha, is an 87-year-old male who presented to [facility] emergency room with a chief complaint of generalized weakness. Patient was admitted to the hospital with COVID-19 pneumonia in October he was dis charged to a long term for rehabilitation and was recently discharged home, patient has been tired he has poor oral intake, he was also complaining of shortness of breath with any activity. He was evaluated in the emergency room vital examination on presentation revealed a temperature of 97.4 pulse 73 respiration 22 blood pressure 102/69 pulse ox 100% on 4 L nasal cannula Laboratory data revealed a white blood count of 5.4 hemoglobin 10.0 platelet count 690 sodium 141 potassium 4.6 chloride 123 CO2 19 BUN 63 creatinine 1.97 magnesium 0.9 urine analysis revealed evidence of urinary tract infection with more than 182 white blood cells per high-power field with many bacteria and many yeast, Mendez virus PCR was positive. Testing in the emergency room revealed chest x-ray revealed evidence of atypical pneumonia with progression from previous studies Patient was admitted to medical floor for further evaluation and treatment. On 11/18/2021 patient was seen and examined on the medical floor he is alert and oriented 3 in no apparent distress there is no fever or chills no headache or dizziness no chest pain no shortness of breath no cough no nausea or vomiting no abdominal pain no diarrhea no blood in the stools no burning with urination no frequency or urgency and no hematuria, patient was evaluated by cardiology, we are awaiting echocardiogram results, and awaiting evaluation by hematology in that regard to elevated d-dimer On 09/18/2022 patient was seen and examined on the medical floor he is alert and oriented 3 in no apparent distress he states that he is feeling some blood dripping in the back of his throat otherwise he denies any complaints there is no fever or chills no headache or dizziness no chest pain no shortness of breath no cough no nausea or vomiting no abdominal pain no diarrhea and no urinary symptoms, patient presented to ER with nosebleed and had packing to his right nostril, he was discharged home he returned after having a syncopal episode, d-d justin was significantly elevated at 34 and has been declining, pro-calcitonin slightly high at 0.14 no clear evidence of any infection at this time chest x- ray suggestive of pneumonia however computed tomography scan of the chest did not reveal evidence of pneumonia there was no evidence of pulmonary embolism on CT angiogram of the chest and no evidence of lower extremity DVT on bilateral lower extremity Doppler. At this time patient is being evaluated by hematology to rule out DIC we are still awaiting input from ENT and infectious disease will follow closely On 11/20/2021 patient was seen and examined on the medical floor he is alert and oriented 3 in no distress he was evaluated by ENT today and packing was removed from the right nostril no evidence of further bleeding at this time. There is no fever or chills no headache or dizziness no chest pain no shortness of breath no cough no nausea or vomiting no abdominal pain no diarrhea and no urinary symptoms as time will continue to monitor plan for discharge to home tomorrow. On 11/21/2021 patient was seen and examined on the medical floor he is alert and oriented 3 in no apparent distress there is no fever or chills no headache or dizziness no chest pain no shortness of breath no cough no nausea or vomiting no abdominal pain no diarrhea no blood in the stools no burning with urination no frequency or urgency and no hematuria no weakness or numbness in any of the extremities no change in vision speech or gait. There is no new episodes of nosebleed. Right nostril packing was removed yesterday. At this time patient i s stable he will be transferred to [facility] today. Plan - Discharge Summary Discharge Rx Participant: No New Discharge Prescriptions: New Ferrous Sulfate [Iron (65 MG Elemental)] 325 mg PO W/LUNCH tab Pantoprazole [Protonix] 40 mg PO AC-BRKFST tab Continue Tamsulosin [Flomax] 0.4 mg PO DAILY metFORMIN HCL [Glucophage] 500 mg PO BID Levothyroxine Sodium [Synthroid] 25 mcg PO DAILY Brimonidine Tartrate/Timolol [Combigan 0.2%-0.5% Eye Drops] 1 drop BOTH EYES BID Vit C/E/Zn/Coppr/Lutein/Zeaxan [Preservision Areds 2 Softgel] 1 cap PO DAILY Multivitamins, Thera [Multivitamin (formulary)] 1 tab PO DAILY Aspirin EC [Ecotrin] 325 mg PO DAILY Latanoprost [Xalatan 0.005%] 1 drop BOTH EYES HS Brinzolamide [Azopt 1% Ophth Susp] 1 drop LEFT EYE BID Atorvastatin [Lipitor] 10 mg PO HS Loratadine [Claritin] 10 mg PO DAILY Discontinued Amoxic-Pot Clav 875-125Mg [Augmentin 875-125] 1 tab PO BID 10 Days #20 tab Discharge Medication List Aspirin EC [Ecotrin] 325 mg PO DAILY 11/17/21 [History] Atorvastatin [Lipitor] 10 mg PO HS 11/17/21 [History] Brimonidine Tartrate/Timolol [Combigan 0.2%-0.5% Eye Drops] 1 drop BOTH EYES BID 11/17/21 [History] Brinzolamide [Azopt 1% Ophth Susp] 1 drop LEFT EYE BID 11/17/21 [History] Latanoprost [Xalatan 0.005%] 1 drop BOTH EYES HS 11/17/21 [History] Levothyroxine Sodium [Synthroid] 25 mcg PO DAILY 11/17/21 [History] Loratadine [Claritin] 10 mg PO DAILY 11/17/21 [History] Multivitamins, Thera [Multivitamin (formulary)] 1 tab PO DAILY 11/17/21 [History] Tamsulosin [Flomax] 0.4 mg PO DAILY 11/17/21 [History] Vit C/E/Zn/Coppr/Lutein/Zeaxan [Preservision Areds 2 Softgel] 1 cap PO DAILY 11/17/21 [History] metFORMIN HCL [Glucophage] 500 mg PO BID 11/17/21 [History] Ferrous Sulfate [Iron (65 MG Elemental)] 325 mg PO W/LUNCH tab 11/21/21 [Rx] Pantoprazole [Protonix] 40 mg PO AC-BRKFST tab 11/21/21 [Rx] Follow up Appointment(s)/Referral(s): Isaac Clements MD [STAFF PHYSICIAN] - 6 Weeks Yola Enciso MD [STAFF PHYSICIAN] - 1 Week Constanza Garsia NPC [Primary Care Provider] - 1-2 Days Arcelia Urbano MD [STAFF PHYSICIAN] - 2 Weeks [facility], [NON-STAFF] - 1-2 Days
[2021-11-21 14:27] VITALS: BP 111/61; PULSE 84; RESP 19; TEMP 97.7
== END 2021-11-21 16:52 ==
LOC: EC 07:37 → 6NMEDSUR 09:35
PROVIDERS: ADMIT Internal Medicine; ATTEND Internal Medicine
DX: R55 Syncope and collapse (principal); E86.0 Dehydration; R94.4 Abnormal results of kidney function studies; E11.65 Type 2 diabetes mellitus with hyperglycemia; E78.5 Hyperlipidemia, unspecified; E03.9 Hypothyroidism, unspecified; N40.0 Benign prostatic hyperplasia without lower urinary tract symptoms; R04.0 Epistaxis; R00.0 Tachycardia, unspecified; Z20.822 Contact with and (suspected) exposure to COVID-19; R91.8 Other nonspecific abnormal finding of lung field; S00.03XA Contusion of scalp, initial encounter; D50.9 Iron deficiency anemia, unspecified; D53.9 Nutritional anemia, unspecified; H54.61 Unqualified visual loss, right eye, normal vision left eye; I10 Essential (primary) hypertension; I65.22 Occlusion and stenosis of left carotid artery; Z83.3 Family history of diabetes mellitus; M48.02 Spinal stenosis, cervical region; M50.321 Other cervical disc degeneration at C4-C5 level; H40.9 Unspecified glaucoma; Z79.890 Hormone replacement therapy; Z79.82 Long term (current) use of aspirin; Z79.899 Other long term (current) drug therapy; Z79.84 Long term (current) use of oral hypoglycemic drugs; Z87.01 Personal history of pneumonia (recurrent); Z86.16 Personal history of COVID-19; Z90.49 Acquired absence of other specified parts of digestive tract; Z86.73 Personal history of transient ischemic attack (TIA), and cerebral infarction without residual deficits; Z82.49 Family history of ischemic heart disease and other diseases of the circulatory system
CPT/HCPCS: 99285; 96365; 96366; 96372 ×5; 96361; 36415; 93005 ×2; 97116; 97162; 97535 ×2; 97166; 83921; 85379 ×3; 82747; 80061; 80053 ×3; 82607; 82728; 83540; 83550; 83735; 84443; 84484; 85025 ×3; 85384; 85610 ×2; 85730 ×2; 81003; 83036; 84145; 87635; 71046; 93880; 93970; 72125; 70450; 71275; G0378 ×5; C8929; J1650 ×4; J2916 ×2; Q9950; Q9967; 93306

== ENCOUNTER 2024-05-27 11:11 | Emergency (ER) | payer MEDICARE ==
--- NOTE | 2024-07-04 15:08 | CT ---
Patient: Reginaldo Bynum Ordering Physician: Unknown, Unknown ID: [id number] Phone, Pager: Phone: N/A Pager: N/A : [phone] Age/Gender: 88Y, M Primary Location: N/A Procedure: CT brain gabyine wo co n Study Date: 05/27/2024 1:20:00 PM EXAMINATION TYPE: CT brain cspine wo con DATE OF EXAM: 05/27/2024 COMPARISON: 11/17/2021 HISTORY: Fall CT DLP: 1400 mGycm, Automated exposure control for dose reduction was used. CONTRAST: Patient injected with 0 mL of Isovue 300. CT of the brain is performed utilizing 3 mm thick sections through the posterior fossa and 3 mm thick sections through the remaining calvarium. Study is performed within 24 hours of arrival to the hospital. No abnormal hyperdensity is present to suggest an acute intracranial hemorrhage. No mass lesion is evident. No acute infarcts are evident. There is periventricular white matter hypodensity, likely on the basi s of chronic white matter ischemic change. Ventricles and sulci are prominent for the patient age. Some mild mucosal thickening is within anterior left ethmoid air cells. IMPRESSIONS: 1. No acute intracranial process. Follow-up MRI can be performed as clinically indicated. 2. Atrophy with chronic appearing periventricular white matter ischemic changes. This may be progress praveen from 2021. CT cervical spine. COMPARISON: None CT of the cervical spine is performed in the axial plane at 2 mm thick sections. Reconstructed image s in the coronal, and sagittal plane are reviewed on the computer. No acute fractures are evident. Vertebral body alignment is normal. Degenerative disc changes loss of disc height is present C4-5 C5-6 C6-7. Anterior vertebral body spur ring is present at these levels. Some posterior endplate spurring is present C4-5 C5-6. Vertebral body heights are preserved. No spinal canal stenosis is evident. Some left foraminal narrowing may be present C4-5 bilaterally C5-C6 IMPRESSION: 1. Degenerative disc change with endplate spurring C4-5 through C6-7.
== END 2024-05-27 17:35 | disposition home or self-care (01) ==
LOC: EC 11:11
CPT/HCPCS: 70450; 72125; 99283

== ENCOUNTER 2025-01-11 07:26 | Inpatient (IN) | payer MEDICARE ==
[2025-01-11 07:48] LABS: Glucose,Whole Blood 134 mg/dL (70-110)
--- NOTE | 2025-01-11 07:48 | ED ---
General Adult HPI - General Chief complaint: Altered Mental Status Stated complaint: UTI Time Seen by Provider: 01/11/25 07:28 Source: EMS Limitations: altered mental status - History of Present Illness Initial comments: Dictation was produced using [employer] dictation software. please excuse any grammatical, word or spelling errors. Chief Complaint: 89-year-old male [facility] for UTI sepsis History of Present Illness: Patient is 89-year-old male with history of diabet es, dementia, CVA. Presents to the emergency department for altered mental status. He had blood work and urine studies performed yesterday. Results came back patient was positive for UTI. It is unclear how long patient's been disoriented. Patient allegedly ANO x 3. For the last several hours she has been altered and minimally responsive. He allegedly had a high temperature. Unable to obtain ROS secondary mental status - Related Data Home Medications Medication Instructions Recorded Confirmed Atorvastatin [Lipitor] 10 mg PO HS 11/17/21 01/11/25 Brimonidine Tartrate/Timolol 1 drop BOTH EYES BID 11/17/21 01/11/25 [Combigan 0.2%-0.5% Eye Drops] Latanoprost [Xalatan 0.005%] 1 drop BOTH EYES HS 11/17/21 01/11/25 Levothyroxine Sodium [Synthroid] 50 mcg PO DAILY 11/17/21 01/11/25 Multivitamins, Thera [Multivitamin 1 tab PO DAILY 11/17/21 01/11/25 (formulary)] Tamsulosin [Flomax] 0.4 mg PO DAILY 11/17/21 01/11/25 Vit C/E/Zn/Coppr/Lutein/Zeaxan 1 cap PO DAILY 11/17/21 01/11/25 [Preservision Areds 2 Softgel] metFORMIN HCL [Glucophage] 1,000 mg PO BID 11/17/21 01/11/25 Acetaminophen [Tylenol 8 Hour] 650 mg PO Q6H PRN 01/11/25 01/11/25 Aspirin 81 mg PO DAILY 01/11/25 01/11/25 Bimatoprost [Lumigan 0.01% Ophth 1 drop BOTH EYES BID 01/11/25 01/11/25 Soln] Brinzolamide [Azopt 1% Ophth Susp] 1 drop LEFT EYE BID 01/11/25 01/11/25 Carboxymethylcellulose Sodium 1 drop BOTH EYES BID 01/11/25 01/11/25 [Refresh Tears] Cholecalciferol [Vitamin D3 (25 50 mcg PO DAILY 01/11/25 01/11/25 Mcg = 1000 Iu)] Empagliflozin [Jardiance] 25 mg PO DAILY 01/11/25 01/11/25 Ferrous Sulfate [Iron (65 MG 325 mg PO DAILY 01/11/25 01/11/25 Elemental)] Glimepiride [Amaryl] 1 mg PO DAILY 01/11/25 01/11/25 Glimepiride [Amaryl] 2 mg PO DAILY 01/11/25 01/11/25 Icy Hot External Liquid 16% 1 applic TOPICAL BID 01/11/25 01/11/25 Insulin Glargine,Hum.rec.anlog 36 units SQ DAILY 01/11/25 01/11/25 [Lantus Solostar Pen] Midodrine [ProAmatine] 5 mg PO TID 01/11/25 01/11/25 Omeprazole 20 mg PO HS 01/11/25 01/11/25 Allergies Allergy/AdvReac Type Severity Reaction Status Date / Time No Known Allergies Allergy Verified 01/11/25 09:40 Review of Systems ROS Statement: Those systems with pertinent positive or pertinent negative responses have been documented in the HPI. ROS Other: All systems not noted in ROS Statement are negative. Past Medical History Past Medical History: CVA/TIA, Diabetes Mellitus, Eye Disorder, Hyperlipidemia, Hypertension, Prostate Disorder, Thyroid Disorder, Vascular Disorder Additional Past Medical History / Comment(s): CVA with R eye blindness, bilateral glaucoma, past HTN but then running low blood pressures and taken off rx, epistaxis, NIDDM type II, BPH, sinus problems, hypothyroid, PVD/L leg. History of Any Multi-Drug Resistant Organisms: None Reported Past Surgical History: Appendectomy, Cholecystectomy Additional Past Surgical History / Comment(s): Colonoscopy Past Anesthesia/Blood Transfusion Reactions: No Reported Reaction Past Psychological History: No Psychological Hx Reported Smoking Status: Never smoker Past Alcohol Use History: Unable to Obtain Past Drug Use History: Unable to Obtain - Past Family History Father Family Medical History: Myocardial Infarction (MD) Additional Family Medical History / Comment(s): Father from a MD at the age of 50 yrs. Mother Family Medical History: Diabetes Mellitus, Liver Disease Additional Family Medical History / Comment(s): Hepatitis. General Exam - General Exam Comments Initial Comments: PHYSICAL EXAM: General Impression: Malaise HEENT: Normocephalic atraumatic, extra-ocular movements intact, pupils equal and reactive to light bilaterally, mucous membranes moist. Cardiovascular: Heart regular rate and rhythm Chest: Able to complete full sentences, no retractions, no tachypnea Abdomen: abdomen soft, non-tender, non-distended, no organomegaly Musculoskeletal: Pulses present and equal in all extremities, no peripheral edema Motor: no focal deficits noted Neurological: CN II-XII grossly intact, no focal motor or sensory deficits noted Skin: Intact with no visualized rashes Limitations: altered mental status Course Vital Signs 01/11/25 01/11/25 01/11/25 07:27 08:08 08:24 Temperature 99.5 F 103.4 F H Pulse Rate 124 H 124 H Respiratory 22 22 Rate Blood Pressure 136/71 134/79 O2 Sat by Pulse 94 L 94 L Oximetry 01/11/25 09:00 Temperature Pulse Rate 120 H Respiratory 20 Rate Blood Pressure 108/58 O2 Sat by Pulse 99 Oximetry EKG Findings - EKG Comments: EKG Findings:: My EKG interpretation: Ventricular rate 123, sinus tachycardia,. 169, QRS 89, QTc 481. No VT prolongation, no QTC prolongation, no ST or T-wave changes noted. Overall, this EKG is unremarkable Procedures - Sepsis Sepsis Focused Exam #1 Time Sepsis Criteria Met: 08:41 Sepsis Focused Exam Date: 01/11/25 Sepsis Focused Exam Time: 08:41 Sepsis Focused Exam Complete: Yes Vital Signs & RN Notes Reviewed: Yes Capillary Refill: < 2 Seconds: Fingers, Toes Peripheral Pulses: Normal: Radial (R), Radial (L), Posterior Tibialis (R), Posterior Tibialis (L), Dorsalis Pedis (R), Dorsalis Pedis (L) Skin Color: Normal for Patient Respiratory Exam: normal lung sounds Cardiovascular Exam: tachycardia Medical Decision Making - Medical Decision Making Was pt. sent in by a medical professional or institution (, PA, SCIENCE TEACHER, urgent care, hospital, or penitentiary...) When possible be specific @ -No Did you speak to anyone other than the patient for history (EMS, parent, family, police, friend...)? What history was obtained from this source @ -No Did you review nursing and triage notes (agree or disagree)? Why? @ -I reviewed and agree with nursing and triage notes Were old charts reviewed (outside hosp., previous admission, EMS record, old EKG, old radiological studies, urgent care reports/EKG's, penitentiary records)? Report findings @ -UTI studies from the [facility]ent[facility] from yesterday were reviewed showing UTI Differential Diagnosis (chest pain, altered mental status, abdominal pain women, abdominal pain men, vaginal bleeding, musculoskeletal, weakness, fever, dyspnea, syncope, headache, dizziness, GI bleed, back pain, seizure, CVA, palpatations, mental health)? @ -Differential Fever: Pneumonia, viral URI, endocarditis, myocarditis, pericarditis, otitis, sinusitis , peritonsillar Abscess, retropharyngeal Abscess, epiglottitis, peritonitis, appendicitis, Ashley cystitis, diverticulitis, hepatitis, colitis, UTI, PID, TOA, pyelonephritis, prostatitis, epididymitis, meningitis, encephalitis, pulmonary embolism, CVA, thyroid storm, pancreatitis, adrenal crisis, cavernous sinus thrombosis, this is not meant to be an all-inclusive list. EKG interpreted by me (3pts min.). @ -See above X-rays interpreted by me (1pt min.). @ -X-ray shows no acute processes CT interpreted by me (1pt min.). @ -Scan the brain shows no acute processes U/S interpreted by me (1pt. min.). @ -None done What testing was considered but not performed or refused? (CT, X-rays, U/S, lab s)? Why? @ -None What meds were considered but not given or refused? Why? @ -None Was smoking cessation discussed for >3mins.? @ -No Were there social determinants of health that impacted care today? How? (Homelessness, low income, unemployed, alcoholism, drug addiction, transportation, low edu. Level, literacy, decrease access to med. care, [facility], rehab)? @ -No Was there de-escalation of care discussed even if they declined (Discuss DNR or withdrawal of care, Hospice)? DNR status @ -Patient is DNR according to penitentiary documentation What co-morbidities impacted this encounter? (DM, HTN, Smoking, COPD, CAD, Cancer, CVA, ARF, Chemo, Hep., AIDS, mental health diagnosis, sleep apnea, mo rbid obesity)? @ -None Was patient admitted / discharged? Hospital course, mention meds given and r oute, prescriptions, significant lab abnormalities, going to OR and other pertinent info. @ -89-year-old male presents to the emergency department for fever and urinary tract infection. Vital signs upon arrival shows rectal temperature one 3.4, heart rate of 124. Patient not hypotensive. Laboratory evaluation obtained leukocytosis 11.17. Lactic acidosis 3.1. Anion gap of 17 with bicarb of 17. Patient started antibiotics. Clinical presentation consistent with UTI sepsis. Patient be admitted consultation to infectious disease. Did you discuss the management of the patient with other professionals (professionals i.e. , PA, SCIENCE TEACHER, lab, RT, psych nurse, social media director, chemical lab supervisor, teacher, flight radio officer, case monitor)? Give summary @ -Case discussed with hospitalist Was critical care preformed (if so, how long)? @ -Yes, 77 minutes Undiagnosed new problem with uncertain prognosis? @ -No Drug Therapy requiring intensive monitoring for toxicity (Heparin, Nitro, Insulin, Cardizem)? @ -No Were any procedures done? @ -No Diagnosis/symptom? Acute, or Chronic, or Acute on Chronic? Uncomplicated (without systemic symptoms) or Complicated (systemic symptoms)? @ -UTI sepsis Side effects of treatment? @ -No Exacerbation, Progression, or Severe Exacerbation? @ -No Poses a threat to life or bodily function? How? (Chest pain, USA, MD, pneumonia, PE, COPD, DKA, ARF, appy, cholecystitis, CVA, Diverticulitis, Homicidal, Suicidal, threat to staff... and all critical care pts) @ -yes - Lab Data Result diagrams: 01/11/25 07:47 01/11/25 07:47 Lab Results 01/11/25 01/11/25 01/11/25 Range/Units 07:46 07:47 07:47 WBC 11.17 H (4.50-10.00) 10*3/uL RBC 4.29 L (4.40-5.60) 10*6/uL Hgb 12.8 L (13.0-17.0) g/dL Hct 37.3 L (39.6-50.0) % MCV 86.9 (80.0-97.0) fL MCH 29.8 (27.0-32.0) pg MCHC 34.3 (32.0-37.0) g/dL Plt Count 100 L (140-440) 10*3/uL MPV 10.1 (9.5-12.2) fL Immature Gran % (Auto) 1.3 % Neutrophils % 90.9 % Lymphocytes % 4.8 % Monocytes % 1.6 % Eosinophils % 0.2 % Basophils % 0.9 % Immature Gran # 0.15 H (0.00-0.04) 10*3/uL Neutrophils # 9.96 H (1.80-7.70) 10*3/uL Lymphocytes # 0.52 L (0.90-5.00) 10*3/uL Monocytes # 0.17 L (0.20-1.00) 10*3/uL Eosinophils # 0.02 L (0.04-0.35) 10*3/uL Basophils # 0.10 (0.00-0.10) 10*3/uL Manual Slide Review Performed PT 16.0 H (10.0-12.5) sec INR 1.5 H (<1.2) APTT 26.7 (22.0-30.0) sec Sodium (137-145) mmol/L Potassium (3.5-5.1) mmol/L Chloride (98-107) mmol/L Carbon Dioxide (22-30) mmol/L Anion Gap mmol/L BUN (9-20) mg/dL Creatinine (0.66-1.25) mg/dL Est GFR (CKD-EPI)AfAm (>60 ml/min/1.73 sqM) Est GFR (CKD-EPI)NonAf (>60 ml/min/1.73 sqM) Glucose (74-99) mg/dL POC Glucose (mg/dL) 134 H (70-110) mg/dL POC Glu Counter Top Assembler ID Nando Riggins Plasma Lactic Acid Augustus (0.7-2.0) mmol/L Calcium (8.4-10.2) mg/dL Total Bilirubin (0.2-1.3) mg/dL AST (17-59) U/L ALT (4-49) U/L Alkaline Phosphatase (38-126) U/L Total Protein (6.3-8.2) g/dL Albumin (3.5-5.0) g/dL 01/11/25 01/11/25 Range/Units 07:47 07:47 WBC (4.50-10.00) 10*3/uL RBC (4.40-5.60) 10*6/uL Hgb (13.0-17.0) g/dL Hct (39.6-50.0) % MCV (80.0-97.0) fL MCH (27.0-32.0) pg MCHC (32.0-37.0) g/dL Plt Count (140-440) 10*3/uL MPV (9.5-12.2) fL Immature Gran % (Auto) % Neutrophils % % Lymphocytes % % Monocytes % % Eosinophils % % Basophils % % Immature Gran # (0.00-0.04) 10*3/uL Neutrophils # (1.80-7.70) 10*3/uL Lymphocytes # (0.90-5.00) 10*3/uL Monocytes # (0.20-1.00) 10*3/uL Eosinophils # (0.04-0.35) 10*3/uL Basophils # (0.00-0.10) 10*3/uL Manual Slide Review PT (10.0-12.5) sec INR (<1.2) APTT (22.0-30.0) sec Sodium 138 (137-145) mmol/L Potassium 3.6 (3.5-5.1) mmol/L Chloride 104 (98-107) mmol/L Carbon Dioxide 17 L (22-30) mmol/L Anion Gap 17 mmol/L BUN 48 H (9-20) mg/dL Creatinine 1.38 H (0.66-1.25) mg/dL Est GFR (CKD-EPI)AfAm 53 (>60 ml/min/1.73 sqM) Est GFR (CKD-EPI)NonAf 46 (>60 ml/min/1.73 sqM) Glucose 141 H (74-99) mg/dL POC Glucose (mg/dL) (70-110) mg/dL POC Glu Counter Top Assembler ID Plasma Lactic Acid Augustus 3.1 H* (0.7-2.0) mmol/L Calcium 9.0 (8.4-10.2) mg/dL Total Bilirubin 2.2 H (0.2-1.3) mg/dL AST 107 H (17-59) U/L ALT 69 H (4-49) U/L Alkaline Phosphatase 210 H (38-126) U/L Total Protein 8.3 H (6.3-8.2) g/dL Albumin 3.8 (3.5-5.0) g/dL Disposition Clinical Impression: Sepsis secondary to UTI Disposition: ADMITTED IP TO THIS HOSP Condition: Critical Referrals: Oliverio Mandujano DO [Primary Care Provider] - 1-2 days Decision Time: 10:07
[2025-01-11 08:01] LABS: HCT 37.3 % (39.6-50.0); HGB 12.8 g/dL (13.0-17.0); MCH 29.8 pg (27.0-32.0); MCHC 34.3 g/dL (32.0-37.0); MCV 86.9 fL (80.0-97.0); Mean Platelet Volume 10.1 fL (9.5-12.2); Platelet Count 100 10*3/uL (140-440); RBC 4.29 10*6/uL (4.40-5.60); RDW 15.6 % (11.5-14.5); WBC 11.17 10*3/uL (4.50-10.00)
[2025-01-11] MEDS: ACETAMINOPHEN TAB 500 MG TAB PO STA (08:02)
[2025-01-11] MEDS: LACTATED RINGERS 1,000 ML IV SCH (08:09)
[2025-01-11] MEDS: LACTATED RINGERS IV SCH (08:10)
[2025-01-11 08:13] LABS: INR 1.5 (<1.2); Partial Thromboplastin Time 26.7 sec (22.0-30.0)
[2025-01-11 08:23] LABS: ALT 69 U/L (4-49); AST 107 U/L (17-59); African American GFR (CKD) 53 (>60 ml/min/1.73 sqM); Albumin 3.8 g/dL (3.5-5.0); Alkaline Phosphatase 210 U/L (38-126); Anion Gap 17 mmol/L; Blood Urea Nitrogen 48 mg/dL (9-20); Carbon Dioxide 17 mmol/L (22-30); Chloride 104 mmol/L (98-107); Glucose 141 mg/dL (74-99); Non-African American GFR(CKD) 46 (>60 ml/min/1.73 sqM); Potassium 3.6 mmol/L (3.5-5.1); Sodium 138 mmol/L (137-145); Total Bilirubin 2.2 mg/dL (0.2-1.3); Total Protein 8.3 g/dL (6.3-8.2)
[2025-01-11] MEDS: ACETAMINOPHEN IV (For NPO) 1,000 MG in EMPTY BAG 1 BAG IVPB STA (08:39)
--- NOTE | 2025-01-11 08:49 | XR ---
EXAMINATION TYPE: XR chest 1V DATE OF EXAM: 01/11/2025 8:37 AM COMPARISON: None. CLINICAL INDICATION: Male, 89 years old with history of Fever, TECHNIQUE: XR chest 1V view(s) obtained. FINDINGS: The heart size is normal. The pulmonary vasculature is prominent. The lungs are clear. IMPRESSION: 1. Correlate for volume overload [facility], , 01/11/2025 8:46 AM
[2025-01-11 09:01] LABS: Basophils % (A) 0.9 %; Eosinophils # (A) 0.02 10*3/uL (0.04-0.35); Eosinophils % (A) 0.2 %; Lymphocytes # (A) 0.52 10*3/uL (0.90-5.00); Lymphocytes % (A) 4.8 %; Monocytes # (A) 0.17 10*3/uL (0.20-1.00); Monocytes % (A) 1.6 %; Neutrophils # (A) 9.96 10*3/uL (1.80-7.70); Neutrophils % (A) 90.9 %
[2025-01-11] MEDS: PIPERACILLIN-TAZOBACTAM 3.375 GM in SODIUM CHLORIDE 0.9% 100 ML IVPB SCH (09:07)
--- NOTE | 2025-01-11 09:50 | CT ---
EXAMINATION TYPE: CT brain wo con DATE OF EXAM: 01/11/2025 9:12 AM COMPARISON: 05/27/2024 CLINICAL INDICATION: Male, 89 years old with history of ams, AMS TECHNIQUE: CT of the brain is performed utilizing 3 mm thick sections through the posterior fossa and 3 mm thick sections through the remaining calvarium. Study is performed within 24 hours of arrival to the hospital. Contrast used: mL of , (none if empty) CT DLP: 1098.4 mGycm, Automated exposure control for dose reduction was used. FINDINGS: No abnormal hyperdensity is present to suggest an acute intracranial hemorrhage. No mass lesion is evident. No acute infarcts are evident. Mild periventricular white matter hypodensity is present, likely on th e basis of chronic white matter ischemic changes. Ventricles and sulci are somewhat prominent for the patient age. Mild mucosal thickening within left maxillary sinus. Remaining paranasal sinuses and mastoid air cell s are clear. IMPRESSION: 1. No acute intracranial process. Follow up MRI can be performed as clinically indicated. 2. Atrophy with mild chronic appearing periventricular white matter ischemic changes, stable from [facility], , 01/11/2025 9:48 AM
[2025-01-11] MEDS ORDERED: ONDANSETRON 4 MG/2 ML VIAL IVP PRN (10:02)
[2025-01-11] MEDS ORDERED: NALOXONE 0.4 MG/ML 1 ML VIAL IV PRN (10:02)
[2025-01-11] MEDS ORDERED: NON FORMULARY DRUG (Acetaminophen [Tylenol 8 Hour] 650 MG Tablet) PO PRN (10:25)
[2025-01-11] MEDS ORDERED: DEXTROSE 50% SYRINGE 50 ML IVP PRN (10:27)
[2025-01-11] MEDS: TAMSULOSIN 0.4 MG CAP.ER.24H PO SCH (10:47)
[2025-01-11] MEDS: ASPIRIN 81 MG PO SCH (10:47)
[2025-01-11] MEDS: ENOXAPARIN 40 MG/0.4 ML SYRINGE SQ SCH (11:15)
[2025-01-11] MEDS: SODIUM CHLORIDE 0.9% 1,000 ML IV SCH (11:15)
[2025-01-11] MEDS: INSULIN LISPRO (HumaLOG) 100 UNIT/ML 10 mL VL SQ SCH (11:33)
[2025-01-11 11:34] LABS: Glucose,Whole Blood 125 mg/dL (70-110)
[2025-01-11] MEDS: INSULIN GLARGINE (LANTUS) 100 UNIT/ML SYR SQ SCH (11:34)
--- NOTE | 2025-01-11 13:33 | P.HPIM ---
History of Present Illness H&P Date: 01/11/25 Chief Complaint: Altered mentation This is a 89-year-old patient, brought into the ER from [facility]. Patient is delirious in the ER. Unable to give a history. Per the EMS report: Nurse stated patient been having fevers for last couple of days. Was being given Tylenol. Previous night patient was tested positive for UTI. In daycare having more altered mentation. Has underlying dementia. Patient is attending Dr. Mandujano order the patient to be transferred to the hospital. Patient may speak a word. It was morning. Patient here in the ER his morning. Awake. Attempts to talk but barely able to do so. Had a temperature 102.4 here. Review of systems: Could not be done as patient is delirious Social history: Patient came in from [facility]. Does use a walker. Non-smoker. Physical examination: VITAL SIGNS: 102.4, 1.5, 22, 92 x 54, 96% room air GENERAL: BMI 23.6, laying in bed, awake, delirious making moaning sound EYES: Right eye cloudy. Arcus analysis left eye, l. HEENT: [External appearance of nose and ears normal, oral cavity dry mucous membrane. NECK: JVD not raised; masses not palpable. HEART: First and second heart sounds are normal; no edema. LUNGS: Respiratory rate normal; clear to auscultation. ABDOMEN: Soft, nontender, liver spleen not palpable, no masses palpable. PSYCH: [Patient is moaning. Unable to talk MUSCULOSKELETAL:No Clubbing/cyanosis;muscles-grossly intact NEUROLOGICAL: Cranial nerves grossly intact; no facial asymmetry, power and sensation grossly intact. Patient is moaning. Unable to talk moving limbs. LYMPHATICS: No lymph nodes palpable in the axilla and neck INVESTIGATIONS, reviewed in the clinical context: January 11, 2025: White count 11.1 hemoglobin 12.8 platelets 100 sodium 138 potassium 3.6 BUN 48 creatinine 1.38 bicarb 17 Lactic acid 3.1, 2.7 total bilirubin 2.2 AST 107 ALT 69 EKG tracing personally reviewed by me-sinus tachycardia. Nonspecific T wave changes. Chest x-ray film personally reviewed by me-possible scattered infiltrate January 10: White count 10.2 hemoglobin 9.6 platelets 120 sodium 135 BUN 39 creatinine 1.42 UA positive for leukoesterase, WBC CT scan brain without contrast: No acute process. Chronic atrophy Assessment plan: - Bilateral pneumonia suspect gram-negative organism, causing sepsis. Also causing delirium IV Zosyn - Acute UTI with cystitis causing sepsis, delirium IV Zosyn - Acute delirium with metabolic encephalopathy from underlying sepsis - Severe sepsis IV Zosyn. IV fluids - Diabetes mellitus type 2, regular insulin and oral hypoglycemic Hold oral hypoglycemic. Continue Lantus at reduced dose. Accu-Cheks with sliding scale. 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 History of Any Multi-Drug Resistant Organisms: None Reported Past Surgical History: Appendectomy, Cholecystectomy Additional Past Surgical History / Comment(s): Colonoscopy Past Anesthesia/Blood Transfusion Reactions: No Reported Reaction Past Psychological History: No Psychological Hx Reported Smoking Status: Never smoker Past Alcohol Use History: Unable to Obtain Past Drug Use History: Unable to Obtain - Past Family History Father Family Medical History: Myocardial Infarction (OR) Additional Family Medical History / Comment(s): Father from a OR at the age of 50 yrs. Mother Family Medical History: Diabetes Mellitus, Liver Disease Additional Family Medical History / Comment(s): Hepatitis. Medications and Allergies Home Medications Medication Instructions Recorded Confirmed Type Atorvastatin [Lipitor] 10 mg PO HS 11/17/21 01/11/25 History Brimonidine Tartrate/Timolol 1 drop BOTH EYES BID 11/17/21 01/11/25 History [Combigan 0.2%-0.5% Eye Drops] Latanoprost [Xalatan 0.005%] 1 drop BOTH EYES HS 11/17/21 01/11/25 History Levothyroxine Sodium [Synthroid] 50 mcg PO DAILY 11/17/21 01/11/25 History Multivitamins, Thera [Multivitamin 1 tab PO DAILY 11/17/21 01/11/25 History (formulary)] Tamsulosin [Flomax] 0.4 mg PO DAILY 11/17/21 01/11/25 History Vit C/E/Zn/Coppr/Lutein/Zeaxan 1 cap PO DAILY 11/17/21 01/11/25 History [Preservision Areds 2 Softgel] metFORMIN HCL [Glucophage] 1,000 mg PO BID 11/17/21 01/11/25 History Acetaminophen [Tylenol 8 Hour] 650 mg PO Q6H PRN 01/11/25 01/11/25 History Aspirin 81 mg PO DAILY 01/11/25 01/11/25 History Bimatoprost [Lumigan 0.01% Ophth 1 drop BOTH EYES BID 01/11/25 01/11/25 History Soln] Brinzolamide [Azopt 1% Ophth Susp] 1 drop LEFT EYE BID 01/11/25 01/11/25 History Carboxymethylcellulose Sodium 1 drop BOTH EYES BID 01/11/25 01/11/25 History [Refresh Tears] Cholecalciferol [Vitamin D3 (25 50 mcg PO DAILY 01/11/25 01/11/25 History Mcg = 1000 Iu)] Empagliflozin [Jardiance] 25 mg PO DAILY 01/11/25 01/11/25 History Ferrous Sulfate [Iron (65 MG 325 mg PO DAILY 01/11/25 01/11/25 History Elemental)] Glimepiride [Amaryl] 1 mg PO DAILY 01/11/25 01/11/25 History Glimepiride [Amaryl] 2 mg PO DAILY 01/11/25 01/11/25 History Icy Hot External Liquid 16% 1 applic TOPICAL BID 01/11/25 01/11/25 History Insulin Glargine,Hum.rec.anlog 36 units SQ DAILY 01/11/25 01/11/25 History [Lantus Solostar Pen] Midodrine [ProAmatine] 5 mg PO TID 01/11/25 01/11/25 History Omeprazole 20 mg PO HS 01/11/25 01/11/25 History Allergies Allergy/AdvReac Type Severity Reaction Status Date / Time No Known Allergies Allergy Verified 01/11/25 09:40 Physical Exam Vitals: Vital Signs Temp Pulse Resp BP Pulse Ox 01/11/25 12:39 111 H 20 96/57 96 01/11/25 11:31 115 H 20 101/58 98 01/11/25 10:23 114 H 20 93/53 95 01/11/25 10:06 102.4 F H 115 H 22 92/54 96 01/11/25 09:00 120 H 20 108/58 99 01/11/25 08:24 124 H 22 134/79 94 L 01/11/25 08:08 103.4 F H 01/11/25 07:27 99.5 F 124 H 22 136/71 94 L Intake and Output 01/10/25 01/11/25 01/11/25 22:59 06:59 14:59 Other: Weight 72.575 kg Results CBC & Chem 7: 01/11/25 07:47 01/11/25 07:47 Labs: Abnormal Lab Results - Last 24 Hours (Table) 01/11/25 01/11/25 01/11/25 Range/Units 07:46 07:47 07:47 WBC 11.17 H (4.50-10.00) 10*3/uL RBC 4.29 L (4.40-5.60) 10*6/uL Hgb 12.8 L (13.0-17.0) g/dL Hct 37.3 L (39.6-50.0) % Plt Count 100 L (140-440) 10*3/uL Immature Gran # 0.15 H (0.00-0.04) 10*3/uL Neutrophils # 9.96 H (1.80-7.70) 10*3/uL Lymphocytes # 0.52 L (0.90-5.00) 10*3/uL Monocytes # 0.17 L (0.20-1.00) 10*3/uL Eosinophils # 0.02 L (0.04-0.35) 10*3/uL PT 16.0 H (10.0-12.5) sec INR 1.5 H (<1.2) Carbon Dioxide (22-30) mmol/L BUN (9-20) mg/dL Creatinine (0.66-1.25) mg/dL Glucose (74-99) mg/dL POC Glucose (mg/dL) 134 H (70-110) mg/dL Plasma Lactic Acid Augustus (0.7-2.0) mmol/L Total Bilirubin (0.2-1.3) mg/dL AST (17-59) U/L ALT (4-49) U/L Alkaline Phosphatase (38-126) U/L Total Protein (6.3-8.2) g/dL 01/11/25 01/11/25 01/11/25 Range/Units 07:47 07:47 11:11 WBC (4.50-10.00) 10*3/uL RBC (4.40-5.60) 10*6/uL Hgb (13.0-17.0) g/dL Hct (39.6-50.0) % Plt Count (140-440) 10*3/uL Immature Gran # (0.00-0.04) 10*3/uL Neutrophils # (1.80-7.70) 10*3/uL Lymphocytes # (0.90-5.00) 10*3/uL Monocytes # (0.20-1.00) 10*3/uL Eosinophils # (0.04-0.35) 10*3/uL PT (10.0-12.5) sec INR (<1.2) Carbon Dioxide 17 L (22-30) mmol/L BUN 48 H (9-20) mg/dL Creatinine 1.38 H (0.66-1.25) mg/dL Glucose 141 H (74-99) mg/dL POC Glucose (mg/dL) (70-110) mg/dL Plasma Lactic Acid Augustus 3.1 H* 2.7 H* (0.7-2.0) mmol/L Total Bilirubin 2.2 H (0.2-1.3) mg/dL AST 107 H (17-59) U/L ALT 69 H (4-49) U/L Alkaline Phosphatase 210 H (38-126) U/L Total Protein 8.3 H (6.3-8.2) g/dL 01/11/25 Range/Units 11:33 WBC (4.50-10.00) 10*3/uL RBC (4.40-5.60) 10*6/uL Hgb (13.0-17.0) g/dL Hct (39.6-50.0) % Plt Count (140-440) 10*3/uL Immature Gran # (0.00-0.04) 10*3/uL Neutrophils # (1.80-7.70) 10*3/uL Lymphocytes # (0.90-5.00) 10*3/uL Monocytes # (0.20-1.00) 10*3/uL Eosinophils # (0.04-0.35) 10*3/uL PT (10.0-12.5) sec INR (<1.2) Carbon Dioxide (22-30) mmol/L BUN (9-20) mg/dL Creatinine (0.66-1.25) mg/dL Glucose (74-99) mg/dL POC Glucose (mg/dL) 125 H (70-110) mg/dL Plasma Lactic Acid Augustus (0.7-2.0) mmol/L Total Bilirubin (0.2-1.3) mg/dL AST (17-59) U/L ALT (4-49) U/L Alkaline Phosphatase (38-126) U/L Total Protein (6.3-8.2) g/dL
[2025-01-11 13:50] LABS: Appearance,Urine Cloudy (Clear); Bacteria,Urine Rare /hpf; Bilirubin,Urine Negative (Negative); Blood,Urine Moderate (Negative); Color,Urine Light Yellow; Glucose,Urine (UA) 4+ (Negative); Ketones,Urine 1+ (Negative); Leukocyte Esterase,Urine Small (Negative); Mucus,Urine Rare /hpf; Nitrite,Urine Negative (Negative); Protein,Urine 1+ (Negative); RBC,Urine 21 /hpf (0-5); Squamous Epithelial Cell,Urine <1 /hpf (0-4); WBC,Urine 60 /hpf (0-5)
--- NOTE | 2025-01-11 13:51 | US ---
EXAMINATION TYPE: US abdomen complete DATE OF EXAM: 01/11/2025 COMPARISON: NONE CLINICAL INDICATION: Male, 89 years old with history of elevated LFT; elevated LFT's Pt is altered mental status and unable to move TECHNIQUE: Grayscale and color Doppler imaging of the abdomen was performed. FINDINGS: EXAM MEASUREMENTS: Liver Length: 12.8 cm Gallbladder Wall: Surgically absent CBD: 1.0 cm, color Doppler imaging was utilized to isolate the common bile duct for measurement. Spleen: 11.9 cm Right Kidney: 9.2 x 5.4 x 4.3 cm Left Kidney: 9.9 x 4.6 x 5.4 cm SHAKE FEEDER NOTES: Limited due to pt unable to move Pancreas: parts seen appear wnl Liver: heterogeneous Gallbladder: Surgically absent Evidence for sonographic Francis's sign: No CBD: wnl Spleen: wnl Right Kidney: wnl, No hydronephrosis, calculi or masses seen Left Kidney: wnl, No hydronephrosis, calculi or masses seen Upper IVC: wnl Abd Aorta: wnl IMPRESSION: 1. No suspicious acute ultrasound abdomen abnormalities. [facility], , 01/11/2025 1:49 PM
[2025-01-11] MEDS: MIDODRINE 5 MG TAB PO SCH (15:19)
[2025-01-11 17:22] LABS: Glucose,Whole Blood 157 mg/dL (70-110)
[2025-01-11] MEDS: ACETAMINOPHEN TAB 325 MG TAB PO PRN (20:16)
[2025-01-11] MEDS: ATORVASTATIN 10 MG TAB PO SCH (20:19)
[2025-01-11] MEDS ORDERED: BIMATOPROST BOTH EYES SCH (21:00)
[2025-01-11] MEDS: LATANOPROST 0.005% OPHTH DROPS 2.5 ML BTL BOTH EYES SCH (21:07)
[2025-01-11] MEDS: BRIMONIDINE TARTRATE 0.2% DROPS 5 ML BTL BOTH EYES SCH (21:12)
[2025-01-11 21:18] LABS: Glucose,Whole Blood 119 mg/dL (70-110)
[2025-01-11] MEDS: TIMOLOL 0.5% OPHTH DROPS 5 ML BTL BOTH EYES SCH (21:18)
[2025-01-11] MEDS: ARTIFICIAL TEARS-HYPROMELLOSE DROPS 15 ML BTL BOTH EYES SCH (21:18)
[2025-01-11] MEDS: BRINZOLAMIDE LEFT EYE SCH (21:26)
[2025-01-11] MEDS ORDERED: VANCOMYCIN IV PER PHARMACY 1 EACH MISC MISCELLANE PRN (21:29)
--- NOTE | 2025-01-11 22:30 | P.CONS ---
History of Present Illness - Reason for Consult Consult date: 01/11/25 Sepsis Requesting physician: Marcos Tinoco - Chief Complaint Decreased level of responsiveness x 1 day - History of Present Illness Patient is a 89-year-old male with a past medical history significant for CVA/TIA, Diabetes Mellitus, Eye Disorder, Hyperlipidemia, Hypertension, Prostate Disorder, Thyroid Disorder, Vascular Disorder patient has been brought into the hospital for evaluation of mental status changes with the patient has been noticed to be disoriented and apparently the patient is awake alert oriented x 3 however patient was less responsive I do not also any question at the time of evaluation on presentation the hospital he did spike a fever of 103.4 F patient was tachycardic and hypotensive but not hypoxic and no need for supplemental oxygen patient did have a white count of 11.17 BUN and creatinine has been mildly elevated also have elevated liver enzymes patient did have a chest x-ray that was correlate for volume overload did not mention any consolidation patient has been started on Zosyn infectious was consulted for further management of antibiotic concern for sepsis most information has been obtained from review of the chart as the patient himself was not able to provide any history discussed with the nursing staff did not mention any open wounds Review of Systems Positive points has been mentioned in HPI complete review could not be obtained because of his underlying mental status Past Medical History Past Medical History: CVA/TIA, Diabetes Mellitus, Eye Disorder, Hyperlipidemia, Hypertension, Prostate Disorder, Thyroid Disorder, Vascular Disorder Additional Past Medical History / Comment(s): CVA with R eye blindness, b ilateral glaucoma, past HTN but then running low blood pressures and taken off rx, epistaxis, NIDDM type II, BPH, sinus problems, hypothyroid, PVD/L leg. History of Any Multi-Drug Resistant Organisms: None Reported Past Surgical History: Appendectomy, Cholecystectomy Additional Past Surgical History / Comment(s): Colonoscopy Past Anesthesia/Blood Transfusion Reactions: No Reported Reaction Past Psychological History: No Psychological Hx Reported Smoking Status: Never smoker Past Alcohol Use History: Unable to Obtain Past Drug Use History: Unable to Obtain - Past Family History Father Family Medical History: Myocardial Infarction (PA) Additional Family Medical History / Comment(s): Father from a PA at the age of 50 yrs. Mother Family Medical History: Diabetes Mellitus, Liver Disease Additional Family Medical History / Comment(s): Hepatitis. Medications and Allergies Home Medications Medication Instructions Recorded Confirmed Type Atorvastatin [Lipitor] 10 mg PO HS 11/17/21 01/11/25 History Brimonidine Tartrate/Timolol 1 drop BOTH EYES BID 11/17/21 01/11/25 History [Combigan 0.2%-0.5% Eye Drops] Latanoprost [Xalatan 0.005%] 1 drop BOTH EYES HS 11/17/21 01/11/25 History Levothyroxine Sodium [Synthroid] 50 mcg PO DAILY 11/17/21 01/11/25 History Multivitamins, Thera [Multivitamin 1 tab PO DAILY 11/17/21 01/11/25 History (formulary)] Tamsulosin [Flomax] 0.4 mg PO DAILY 11/17/21 01/11/25 History Vit C/E/Zn/Coppr/Lutein/Zeaxan 1 cap PO DAILY 11/17/21 01/11/25 History [Preservision Areds 2 Softgel] metFORMIN HCL [Glucophage] 1,000 mg PO BID 11/17/21 01/11/25 History Acetaminophen [Tylenol 8 Hour] 650 mg PO Q6H PRN 01/11/25 01/11/25 History Aspirin 81 mg PO DAILY 01/11/25 01/11/25 History Bimatoprost [Lumigan 0.01% Ophth 1 drop BOTH EYES BID 01/11/25 01/11/25 History Soln] Brinzolamide [Azopt 1% Ophth Susp] 1 drop LEFT EYE BID 01/11/25 01/11/25 History Carboxymethylcellulose Sodium 1 drop BOTH EYES BID 01/11/25 01/11/25 History [Refresh Tears] Cholecalciferol [Vitamin D3 (25 50 mcg PO DAILY 01/11/25 01/11/25 History Mcg = 1000 Iu)] Empagliflozin [Jardiance] 25 mg PO DAILY 01/11/25 01/11/25 History Ferrous Sulfate [Iron (65 MG 325 mg PO DAILY 01/11/25 01/11/25 History Elemental)] Glimepiride [Amaryl] 1 mg PO DAILY 01/11/25 01/11/25 History Glimepiride [Amaryl] 2 mg PO DAILY 01/11/25 01/11/25 History Icy Hot External Liquid 16% 1 applic TOPICAL BID 01/11/25 01/11/25 History Insulin Glargine,Hum.rec.anlog 36 units SQ DAILY 01/11/25 01/11/25 History [Lantus Solostar Pen] Midodrine [ProAmatine] 5 mg PO TID 01/11/25 01/11/25 History Omeprazole 20 mg PO HS 01/11/25 01/11/25 History Allergies Allergy/AdvReac Type Severity Reaction Status Date / Time No Known Allergies Allergy Verified 01/11/25 09:40 Physical Exam Vitals: Vital Signs Temp Pulse Resp BP Pulse Ox 01/11/25 10:23 114 H 20 93/53 95 01/11/25 10:06 102.4 F H 115 H 22 92/54 96 01/11/25 09:00 120 H 20 108/58 99 01/11/25 08:24 124 H 22 134/79 94 L 01/11/25 08:08 103.4 F H 01/11/25 07:27 99.5 F 124 H 22 136/71 94 L Intake and Output 01/10/25 01/11/25 01/11/25 22:59 06:59 14:59 Other: Weight 72.575 kg GENERAL DESCRIPTION: Elderly male lying in bed, no distress. No tachypnea or accessory muscle of respiration use. HEENT: Shows Pallor , no scleral icterus. Oral mucous membrane is dry. NECK: Trachea central, no thyromegaly. LUNGS: Unlabored breathing. Clear to auscultation anteriorly. No wheeze or crackle. HEART: S1, S2, regular rate and rhythm. No loud murmur ABDOMEN: Soft, no tenderness , guarding or rigidity, no organomegaly EXTREMITIES: No edema of feet. SKIN: No rash, no masses palpable. NEUROLOGICAL: The patient is lethargic orientation cannot be determined Results CBC & Chem 7: 01/11/25 07:47 01/11/25 07:47 Labs: Abnormal Lab Results - Last 24 Hours (Table) 01/11/25 01/11/25 01/11/25 Range/Units 07:46 07:47 07:47 WBC 11.17 H (4.50-10.00) 10*3/uL RBC 4.29 L (4.40-5.60) 10*6/uL Hgb 12.8 L (13.0-17.0) g/dL Hct 37.3 L (39.6-50.0) % Plt Count 100 L (140-440) 10*3/uL Immature Gran # 0.15 H (0.00-0.04) 10*3/uL Neutrophils # 9.96 H (1.80-7.70) 10*3/uL Lymphocytes # 0.52 L (0.90-5.00) 10*3/uL Monocytes # 0.17 L (0.20-1.00) 10*3/uL Eosinophils # 0.02 L (0.04-0.35) 10*3/uL PT 16.0 H (10.0-12.5) sec INR 1.5 H (<1.2) Carbon Dioxide (22-30) mmol/L BUN (9-20) mg/dL Creatinine (0.66-1.25) mg/dL Glucose (74-99) mg/dL POC Glucose (mg/dL) 134 H (70-110) mg/dL Plasma Lactic Acid Augustus (0.7-2.0) mmol/L Total Bilirubin (0.2-1.3) mg/dL AST (17-59) U/L ALT (4-49) U/L Alkaline Phosphatase (38-126) U/L Total Protein (6.3-8.2) g/dL 01/11/25 01/11/25 Range/Units 07:47 07:47 WBC (4.50-10.00) 10*3/uL RBC (4.40-5.60) 10*6/uL Hgb (13.0-17.0) g/dL Hct (39.6-50.0) % Plt Count (140-440) 10*3/uL Immature Gran # (0.00-0.04) 10*3/uL Neutrophils # (1.80-7.70) 10*3/uL Lymphocytes # (0.90-5.00) 10*3/uL Monocytes # (0.20-1.00) 10*3/uL Eosinophils # (0.04-0.35) 10*3/uL PT (10.0-12.5) sec INR (<1.2) Carbon Dioxide 17 L (22-30) mmol/L BUN 48 H (9-20) mg/dL Creatinine 1.38 H (0.66-1.25) mg/dL Glucose 141 H (74-99) mg/dL POC Glucose (mg/dL) (70-110) mg/dL Plasma Lactic Acid Augustus 3.1 H* (0.7-2.0) mmol/L Total Bilirubin 2.2 H (0.2-1.3) mg/dL AST 107 H (17-59) U/L ALT 69 H (4-49) U/L Alkaline Phosphatase 210 H (38-126) U/L Total Protein 8.3 H (6.3-8.2) g/dL Assessment and Plan (1) Sepsis Current Visit: Yes Status: Acute Code(s): A41.9 - SEPSIS, UNSPECIFIED ORGANISM SNOMED Code(s): 19272587 (2) UTI (urinary tract infection) Current Visit: Yes Status: Acute Code(s): N39.0 - URINARY TRACT INFECTION, SITE NOT SPECIFIED SNOMED Code(s): 25542085 (3) Leukocytosis Current Visit: Yes Status: Acute Code(s): D72.829 - ELEVATED WHITE BLOOD CELL COUNT, UNSPECIFIED SNOMED Code(s): 053353652 Plan: 1patient presented to hospital with sepsis in this patient who did have a fever tachycardia hypotension source likely urinary however underlying abdominal source not entirely excluded keeping in mind he did have elevated liver enzymes and likely will need to cover for enteric gram-negative pathogen 2-patient did have multiple comorbidities including diabetes prostate disorder hypertension and hyperlipidemia complicating his overall clinical picture 3-we will obtain ultrasound of the abdomen to make sure no evidence of any hepatobiliary disease and evidence of any hydronephrosis 4-patient will be treated empirically with Zosyn while waiting for the culture to finalize We will follow on clinical condition and cultures to further adjust medication if needed Thank you for this consultation we will follow the patient along with you Dictation was produced using [employer] dictation software. please excuse any grammatical, word or spelling errors. Time with Patient: Greater than 30
[2025-01-11] MEDS: VANCOMYCIN 1,250 MG in SODIUM CHLORIDE 0.9% 250 ML IVPB ONE (22:35)
[2025-01-11] MEDS: ACETAMINOPHEN IV (For NPO) 1,000 MG in EMPTY BAG 1 BAG IVPB PRN (23:25)
[2025-01-12 05:05] LABS: African American GFR (CKD) 56 (>60 ml/min/1.73 sqM); Non-African American GFR(CKD) 48 (>60 ml/min/1.73 sqM)
[2025-01-12 06:05] LABS: Glucose,Whole Blood 127 mg/dL (70-110)
[2025-01-12 11:25] LABS: Glucose,Whole Blood 114 mg/dL (70-110)
[2025-01-12] MEDS: LEVOTHYROXINE 50 MCG TAB PO SCH (12:19)
[2025-01-12] MEDS: CHOLECALCIFEROL 25 MCG (1000 IU) TABLET PO SCH (12:19)
[2025-01-12] MEDS: DAPAGLIFLOZIN PROPANEDIOL 10 MG TABLET PO SCH (12:19)
[2025-01-12] MEDS: FERROUS SULFATE 325 MG TAB PO SCH (12:19)
[2025-01-12] MEDS: VIT A,C & E-LUTEIN-MINERALS 1 EACH TAB PO SCH (12:20)
[2025-01-12] MEDS: MULTIVITAMINS, THERA 1 EACH TAB PO SCH (12:20)
--- NOTE | 2025-01-12 14:59 | P.PN ---
Subjective Progress Note Date: 01/12/25 Principal diagnosis: Reason for follow-up is UTI and bacteremia Patient is a 89-year-old male with a past medical history significant for CVA/TIA, Diabetes Mellitus, Eye Disorder, Hyperlipidemia, Hypertension, Prostate Disorder, Thyroid Disorder, Vascular Disorder patient has been brought into the hospital for evaluation of mental status changes, patient did have fev er elevated white count positive UA concerning for symptomatic UTI subsequently blood cultures came back positive with MRSA. On today's evaluation that is 01/11/2025,the patient did have some improvement in his fever pattern and is afebrile this morning patient remains to be not a very good historian no vomiting diarrhea or anything changes reported by the nursing staff. Patient did have a creatinine 1.33 blood culture with MRSA, abdominal ultrasound no abnormality Objective - Vital Signs Vital signs: Vital Signs Temp 98.4 F 01/12/25 08:00 Pulse 90 01/12/25 12:00 Resp 20 01/12/25 08:00 BP 113/66 01/12/25 12:00 Pulse Ox 98 01/12/25 12:00 FiO2 Intake & Output 01/11/25 01/12/25 01/12/25 18:59 06:59 18:59 Output Total 450 Balance -450 Weight 72.575 kg 71.5 kg 71.5 kg Output: Urine 450 Other: Voiding Method Diaper Diaper Incontinent Incontinent External Catheter External Catheter # Voids 2 # Bowel Movements 1 - Exam GENERAL DESCRIPTION: An elderly male lying in bed in no distress RESPIRATORY SYSTEM: Unlabored breathing , decreased breath sounds at bases HEART: S1 S2 regular rate and rhythm , ABDOMEN: Soft , no tenderness EXTREMITIES: No edema feet - Labs CBC & Chem 7: 01/11/25 07:47 01/12/25 04:29 Labs: Abnormal Lab Results - Last 24 Hours (Table) 01/11/25 01/11/25 01/11/25 Range/Units 17:09 17:20 20:19 Creatinine (0.66-1.25) mg/dL POC Glucose (mg/dL) 157 H (70-110) mg/dL Plasma Lactic Acid Augustus 3.5 H* 2.8 H* (0.7-2.0) mmol/L 01/11/25 01/12/25 01/12/25 Range/Units 21:15 00:07 04:29 Creatinine 1.33 H (0.66-1.25) mg/dL POC Glucose (mg/dL) 119 H (70-110) mg/dL Plasma Lactic Acid Augustus 2.8 H* (0.7-2.0) mmol/L 01/12/25 01/12/25 Range/Units 06:04 11:24 Creatinine (0.66-1.25) mg/dL POC Glucose (mg/dL) 127 H 114 H (70-110) mg/dL Plasma Lactic Acid Augustus (0.7-2.0) mmol/L Microbiology - Last 24 Hours (Table) 01/11/25 07:48 Blood Culture Gram Stain - Preliminary Blood Blood Culture - Preliminary Presumptive MRSA 01/11/25 08:03 Blood Culture Gram Stain - Preliminary Blood Blood Culture - Preliminary Presumptive MRSA Molecular ID Assessment and Plan (1) Sepsis Current Visit: Yes Status: Acute Code(s): A41.9 - SEPSIS, UNSPECIFIED ORGANISM SNOMED Code(s): 83543270 (2) UTI (urinary tract infection) Current Visit: Yes Status: Acute Code(s): N39.0 - URINARY TRACT INFECTION, SITE NOT SPECIFIED SNOMED Code(s): 55174163 (3) Leukocytosis Current Visit: Yes Status: Acute Code(s): D72.829 - ELEVATED WHITE BLOOD CELL COUNT, UNSPECIFIED SNOMED Code(s): 449537335 (4) MRSA bacteremia Current Visit: Yes Status: Acute Code(s): R78.81 - BACTEREMIA; B95.62 - METHICILLIN RESIS STAPH INFCT CAUSING DISEASES CLASSD ELSR SNOMED Code(s): 44647631404979780 Plan: 1patient presented to hospital with sepsis in this patient who did have a fever tachycardia hypotension source likely urinary however underlying abdominal source not entirely excluded keeping in mind he did have elevated liver enzymes and likely will need to cover for enteric gram-negative pathogen 2-patient did have multiple comorbidities including diabetes prostate disorder hypertension and hyperlipidemia complicating his overall clinical picture 3- ultrasound of the abdomen with no evidence of any hepatobiliary disease or evidence of any hydronephrosis 4-patient clinical course complicated by development of MRSA bacteremia source could be likely urinary as urine is growing the same pathogen patient in bed has been adjusted to vancomycin Zosyn has been discontinued blood culture will be repeated to document clearance of his bacteremia and will monitor his creatinine closely Dictation was produced using [employer] dictation software. please excuse any grammatical, word or spelling errors. Time with Patient: Less than 30
[2025-01-12 16:36] LABS: Glucose,Whole Blood 110 mg/dL (70-110)
--- NOTE | 2025-01-12 18:36 | P.PN ---
Progress Note - Text Progress Note Date: 01/12/25 Chief Complaint: Altered mentation This is a 89-year-old patient, brought into the ER from [facility]. Patient is delirious in the ER. Unable to give a history. Per the EMS report: Nurse stated patient been having fevers for last couple of days. Was being given Tylenol. Previous night patient was tested positive for UTI. In daycare having more altered mentation. Has underlying dementia. Patient is attending Dr. Mandujano order the patient to be transferred to the hospital. Patient may speak a word. It was morning. Patient here in the ER his morning. Awake. Attempts to talk but barely able to do so. Had a temperature 102.4 here. January 12: Still a bit delirious. But better than yesterday. Attempting to talk a bit more. Blood cultures x 2 sets coming back positive for MRSA. Presumptive. IV vancomycin. Last fever spike was last night of 101.1. Per ID Zosyn discontinued. Active Medications Acetaminophen (Acetaminophen Tab 325 Mg Tab) 650 mg PO Q6HR PRN PRN Reason: Mild Pain or Fever > 100.5 Last Admin: 01/11/25 20:16 Dose: 650 mg Artificial Tears (Artificial Tears-Hypromellose Drops 15 Ml Btl) 1 drops BOTH EYES BID [facility] Last Admin: 01/12/25 09:37 Dose: 1 drops Aspirin (Aspirin 81 Mg) 81 mg PO DAILY [facility] Last Admin: 01/12/25 12:19 Dose: Not Given Atorvastatin Calcium (Atorvastatin 10 Mg Tab) 10 mg PO HS [facility] Last Admin: 01/11/25 20:19 Dose: Not Given Brimonidine Tartrate (Brimonidine Tartrate 0.2% Drops 5 Ml Btl) 1 drops BOTH EYES BID [facility] Last Admin: 01/12/25 09:36 Dose: 1 drops Cholecalciferol (Cholecalciferol 25 Mcg (1000 Iu) Tablet) 50 mcg PO DAILY [facility] Last Admin: 01/12/25 12:19 Dose: Not Given Dapagliflozin (Dapagliflozin Propanediol 10 Mg Tablet) 10 mg PO DAILY [facility] Last Admin: 01/12/25 12:19 Dose: Not Given Dextrose/Water (Dextrose 50% Syringe 50 Ml) 25 ml IVP PER PROTOCOL PRN; Protocol PRN Reason: Hypoglycemia Dextrose/Water (Dextrose 50% Syringe 50 Ml) 50 ml IVP PER PROTOCOL PRN; Protocol PRN Reason: Hypoglycemia Enoxaparin Sodium (Enoxaparin 40 Mg/0.4 Ml Syringe) 40 mg SQ DAILY [facility] Last Admin: 01/12/25 09:36 Dose: 40 mg Ferrous Sulfate (Ferrous Sulfate 325 Mg Tab) 325 mg PO DAILY [facility] Last Admin: 01/12/25 12:19 Dose: Not Given Sodium Chloride (Saline 0.9%) 1,000 mls @ 130 mls/hr IV .Q7H42M [facility] Last Admin: 01/12/25 17:48 Dose: 130 mls/hr Vancomycin HCl 1,250 mg/ (Sodium Chloride) 250 mls @ 125 mls/hr IVPB Q24H [facility] Acetaminophen 1,000 mg/ IV (Solution) 100 mls @ 400 mls/hr IVPB ONCE PRN PRN Reason: fever >101 Last Admin: 01/11/25 23:25 Dose: 400 mls/hr Insulin Glargine (Insulin Glargine (Lantus) 100 Unit/Ml Syr) 30 unit SQ DAILY@0700 [facility] Last Admin: 01/12/25 12:19 Dose: Not Given Insulin Human Lispro (Insulin Lispro (Humalog) 100 Unit/Ml 10 Ml Vl) 0 unit SQ ACHS [facility]; Protocol Last Admin: 01/12/25 17:48 Dose: Not Given Latanoprost (Latanoprost 0.005% Ophth Drops 2.5 Ml Btl) 1 drops BOTH EYES HS [facility] Last Admin: 01/11/25 21:07 Dose: 1 drops Levothyroxine Sodium (Levothyroxine 50 Mcg Tab) 50 mcg PO DAILY@0630 [facility] Last Admin: 01/12/25 12:19 Dose: Not Given Midodrine (Midodrine 5 Mg Tab) 5 mg PO TID [facility] Last Admin: 01/12/25 17:47 Dose: Not Given Multivitamins (Multivitamins, Thera 1 Each Tab) 1 each PO DAILY [facility] Last Admin: 01/12/25 12:20 Dose: Not Given Multivitamins/Minerals (Vit A,C & V-Xnjrbz-Rafcentv 1 Each Tab) 1 each PO DAILY [facility] Last Admin: 01/12/25 12:20 Dose: Not Given Naloxone HCl (Naloxone 0.4 Mg/Ml 1 Ml Vial) 0.2 mg IV Q2M PRN PRN Reason: Opioid Reversal Non-Formulary Medication (Brinzolamide [Azopt 1% Ophth Susp]) 1 drop LEFT EYE BID [facility] Last Admin: 01/12/25 09:37 Dose: Not Given Ondansetron HCl (Ondansetron 4 Mg/2 Ml Vial) 4 mg IVP Q8HR PRN PRN Reason: Nausea And Vomiting Tamsulosin HCl (Tamsulosin 0.4 Mg Cap.Er.24h) 0.4 mg PO DAILY [facility] Last Admin: 01/12/25 12:20 Dose: Not Given Timolol Maleate (Timolol 0.5% Ophth Drops 5 Ml Btl) 1 drops BOTH EYES BID [facility] Last Admin: 01/12/25 09:36 Dose: 1 drops Social history: Patient came in from [facility]. Does use a walker. Non-smoker. Physical examination: VITAL SIGNS: Tmax 101.1, 101, 112 x 72, 97% room air GENERAL: BMI 23.6, laying in bed, awake, still delirious EYES: Right eye cloudy. Arcus senilis left eye, HEENT: [External appearance of nose and ears normal, oral cavity dry mucous membrane. NECK: JVD not raised; masses not palpable. HEART: First and second heart sounds are normal; no edema. LUNGS: Respiratory rate normal; clear to auscultation. ABDOMEN: Soft, nontender, liver spleen not palpable, no masses palpable. PSYCH: Still delirious though attempting to talk MUSCULOSKELETAL:No Clubbing/cyanosis;muscles-grossly intact NEUROLOGICAL: Cranial nerves grossly intact; no facial asymmetry, power and sensation grossly intact. Patient is moaning. Moving his limbs INVESTIGATIONS, reviewed in the clinical context: Blood culture [January 11: Presumptive MRSA January 11, 2025: White count 11.1 hemoglobin 12.8 platelets 100 sodium 138 pota ssium 3.6 BUN 48 creatinine 1.38 bicarb 17 Lactic acid 3.1, 2.7 total bilirubin 2.2 AST 107 ALT 69 EKG tracing personally reviewed by me-sinus tachycardia. Nonspecific T wave changes. Chest x-ray film personally reviewed by me-possible scattered infiltrate January 10: White count 10.2 hemoglobin 9.6 platelets 120 sodium 135 BUN 39 creatinine 1.42 UA positive for leukoesterase, WBC CT scan brain without contrast: No acute process. Chronic atrophy Assessment plan: -Severe sepsis, delirium with blood cultures positive for presumptive MRSA: Slow to respond IV vancomycin. Fluids - Acute delirium with metabolic encephalopathy from underlying sepsis: Slow to respond - Diabetes mellitus type 2, regular insulin and oral hypoglycemic Hold oral hypoglycemic. Continue Lantus at reduced dose. Accu-Cheks with sliding scale. - Advanced cognitive impairment from Alzheimer's dementia - BPH Flomax 0.4 mg a day - GERD Prilosec 20 mg nightly - Hypothyroid Synthroid 50 mcg a day - Hyperlipidemia Lipitor 10 mg nightly - PAD Aspirin - No code Antibiotic changed to vancomycin per ID. Follow. Past Medical History Past Medical History: CVA/TIA, Diabetes Mellitus, Eye Disorder, Hyperlipidemia, Hypertension, Prostate Disorder, Thyroid Disorder, Vascular Disorder Additional Past Medical History / Comment(s): CVA with R eye blindness, bilateral glaucoma, past HTN but then running low blood pressures and taken off rx, epistaxis, NIDDM type II, BPH, sinus problems, hypothyroid, PVD/L leg. History of Any Multi-Drug Resistant Organisms: None Reported Past Surgical History: Appendectomy, Cholecystectomy Additional Past Surgical History / Comment(s): Colonoscopy Past Anesthesia/Blood Transfusion Reactions: No Reported Reaction Past Psychological History: No Psychological Hx Reported Smoking Status: Never smoker Past Alcohol Use History: Unable to Obtain Past Drug Use History: Unable to Obtain
[2025-01-12 20:06] LABS: Glucose,Whole Blood 95 mg/dL (70-110)
[2025-01-12] MEDS: VANCOMYCIN 1,250 MG in SODIUM CHLORIDE 0.9% 250 ML IVPB SCH (20:41)
[2025-01-13 05:58] LABS: Glucose,Whole Blood 100 mg/dL (70-110)
[2025-01-13 06:11] LABS: HCT 39.1 % (39.6-50.0); HGB 12.9 g/dL (13.0-17.0); MCH 29.3 pg (27.0-32.0); MCV 88.9 fL (80.0-97.0); Mean Platelet Volume 10.2 fL (9.5-12.2); RDW 16.5 % (11.5-14.5); WBC 10.64 10*3/uL (4.50-10.00)
[2025-01-13 06:23] LABS: African American GFR (CKD) 84 (>60 ml/min/1.73 sqM); Anion Gap 15 mmol/L; Blood Urea Nitrogen 40 mg/dL (9-20); Calcium 8.4 mg/dL (8.4-10.2); Carbon Dioxide 18 mmol/L (22-30); Chloride 116 mmol/L (98-107); Glucose 89 mg/dL (74-99); Non-African American GFR(CKD) 73 (>60 ml/min/1.73 sqM); Potassium 3.4 mmol/L (3.5-5.1); Sodium 149 mmol/L (137-145)
[2025-01-13 08:21] LABS: Band Neutrophils % 5 %; Lymphocytes # (M) 1.38 k/uL (1.0-4.8); Monocytes # (M) 0.43 k/uL (0-1.0); Neutrophils # (M) 8.83 k/uL (1.3-7.7); Neutrophils % (M) 78 %; Nucleated Red Blood Cells 0 /100 WBC (0-0); Total Cells Counted 100
[2025-01-13 08:23] LABS: Platelet Count 73 10*3/uL (140-440)
[2025-01-13 11:30] LABS: Glucose,Whole Blood 103 mg/dL (70-110)
[2025-01-13] MEDS: VANCOMYCIN 1,250 MG in SODIUM CHLORIDE 0.9% 250 ML IVPB SCH (13:06)
[2025-01-13] MEDS: DEXTROSE 5%-0.45% NACL 1,000 ML IV SCH (13:07)
--- NOTE | 2025-01-13 13:08 | P.PN ---
Progress Note - Text Progress Note Date: 01/13/25 Chief Complaint: Altered mentation This is a 89-year-old patient, brought into the ER from [facility]. Patient is delirious in the ER. Unable to give a history. Per the EMS report: Nurse stated patient been having fevers for last couple of days. Was being given Tylenol. Previous night patient was tested positive for UTI. In daycare having more altered mentation. Has underlying dementia. Patient is attending Dr. Mandujano order the patient to be transferred to the hospital. Patient may speak a word. It was morning. Patient here in the ER his morning. Awake. Attempts to talk but barely able to do so. Had a temperature 102.4 here. January 12: Still a bit delirious. But better than yesterday. Attempting to talk a bit more. Blood cultures x 2 sets coming back positive for MRSA. Presumptive. IV vancomycin. Last fever spike was last night of 101.1. Per ID Zosyn discontinued. January 13: Patient likely answering questions. Little bit confused. Mentation not fluctuating. Spoke to Racquel from speech therapist. This morning he did not really follow commands. She will try again this afternoon. No further fever. Getting IV vancomycin for MRSA. Will change IV fluids to D5W. Because patient is NPO. Cut back Lantus to 22 units. Active Medications Acetaminophen (Acetaminophen Tab 325 Mg Tab) 650 mg PO Q6HR PRN PRN Reason: Mild Pain or Fever > 100.5 Last Admin: 01/11/25 20:16 Dose: 650 mg Artificial Tears (Artificial Tears-Hypromellose Drops 15 Ml Btl) 1 drops BOTH EYES BID [facility] Last Admin: 01/13/25 09:15 Dose: 1 drops Aspirin (Aspirin 81 Mg) 81 mg PO DAILY [facility] Last Admin: 01/13/25 10:01 Dose: Not Given Atorvastatin Calcium (Atorvastatin 10 Mg Tab) 10 mg PO HS [facility] Last Admin: 01/12/25 20:17 Dose: Not Given Brimonidine Tartrate (Brimonidine Tartrate 0.2% Drops 5 Ml Btl) 1 drops BOTH EYES BID [facility] Last Admin: 01/13/25 09:16 Dose: 1 drops Cholecalciferol (Cholecalciferol 25 Mcg (1000 Iu) Tablet) 50 mcg PO DAILY [facility] Last Admin: 01/13/25 10:02 Dose: Not Given Dapagliflozin (Dapagliflozin Propanediol 10 Mg Tablet) 10 mg PO DAILY [facility] Last Admin: 01/13/25 10:02 Dose: Not Given Dextrose/Water (Dextrose 50% Syringe 50 Ml) 25 ml IVP PER PROTOCOL PRN; Protocol PRN Reason: Hypoglycemia Dextrose/Water (Dextrose 50% Syringe 50 Ml) 50 ml IVP PER PROTOCOL PRN; Protocol PRN Reason: Hypoglycemia Enoxaparin Sodium (Enoxaparin 40 Mg/0.4 Ml Syringe) 40 mg SQ DAILY [facility] Last Admin: 01/12/25 09:36 Dose: 40 mg Ferrous Sulfate (Ferrous Sulfate 325 Mg Tab) 325 mg PO DAILY [facility] Last Admin: 01/13/25 10:02 Dose: Not Given Acetaminophen 1,000 mg/ IV (Solution) 100 mls @ 400 mls/hr IVPB ONCE PRN PRN Reason: fever >101 Last Admin: 01/11/25 23:25 Dose: 400 mls/hr Vancomycin HCl 1,250 mg/ (Sodium Chloride) 250 mls @ 125 mls/hr IVPB Q16H [facility] Dextrose/Sodium Chloride (Dextrose 5%-1/2ns Iv Soln) 1,000 mls @ 100 mls/hr IV .Q10H [facility] Insulin Glargine (Insulin Glargine (Lantus) 100 Unit/Ml Syr) 30 unit SQ DAILY@0700 [facility] Last Admin: 01/13/25 05:59 Dose: Not Given Insulin Human Lispro (Insulin Lispro (Humalog) 100 Unit/Ml 10 Ml Vl) 0 unit SQ ACHS [facility]; Protocol Last Admin: 01/13/25 05:59 Dose: Not Given Latanoprost (Latanoprost 0.005% Ophth Drops 2.5 Ml Btl) 1 drops BOTH EYES HS [facility] Last Admin: 01/12/25 20:20 Dose: 1 drops Levothyroxine Sodium (Levothyroxine 50 Mcg Tab) 50 mcg PO DAILY@0630 [facility] Last Admin: 01/13/25 05:48 Dose: Not Given Midodrine (Midodrine 5 Mg Tab) 5 mg PO TID [facility] Last Admin: 01/13/25 10:02 Dose: Not Given Miscellaneous Information (Vancomycin Trough Due 1 Each Misc) 0 each MISCELLANE DIRECTED ONE Stop: 01/14/25 20:01 Multivitamins (Multivitamins, Thera 1 Each Tab) 1 each PO DAILY [facility] Last Admin: 01/13/25 10:02 Dose: Not Given Multivitamins/Minerals (Vit A,C & P-Mgbwho-Hhcagbfh 1 Each Tab) 1 each PO DAILY [facility] Last Admin: 01/13/25 10:02 Dose: Not Given Naloxone HCl (Naloxone 0.4 Mg/Ml 1 Ml Vial) 0.2 mg IV Q2M PRN PRN Reason: Opioid Reversal Non-Formulary Medication (Brinzolamide [Azopt 1% Ophth Susp]) 1 drop LEFT EYE BID [facility] Last Admin: 01/13/25 10:02 Dose: Not Given Ondansetron HCl (Ondansetron 4 Mg/2 Ml Vial) 4 mg IVP Q8HR PRN PRN Reason: Nausea And Vomiting Tamsulosin HCl (Tamsulosin 0.4 Mg Cap.Er.24h) 0.4 mg PO DAILY [facility] Last Admin: 01/13/25 10:02 Dose: Not Given Timolol Maleate (Timolol 0.5% Ophth Drops 5 Ml Btl) 1 drops BOTH EYES BID [facility] Last Admin: 01/13/25 09:16 Dose: 1 drops Social history: Patient came in from [facility]. Does use a walker. Non-smoker. Physical examination: VITAL SIGNS: 97.5, 98, 17, 134 x 71, 95% room air GENERAL: More awake. Delirium better. Answering some simple questions. EYES: Right eye cloudy. Arcus senilis left eye, HEENT: [External appearance of nose and ears normal, oral cavity dry mucous membrane. NECK: JVD not raised; masses not palpable. HEART: First and second heart sounds are normal; no edema. LUNGS: Respiratory rate normal; clear to auscultation. ABDOMEN: Soft, nontender, liver spleen not palpable, no masses palpable. PSYCH: Answering simple questions. Delirium better. MUSCULOSKELETAL:No Clubbing/cyanosis;muscles-grossly intact NEUROLOGICAL: Right eye blind. Cranial nerves grossly intact; no facial asymmetry, moving his limbs. Following, once INVESTIGATIONS, reviewed in the clinical context: January 13: White count 10.8. Hemoglobin 12.9 sodium 149 potassium 3.4. 40 creatinine 0.94 Blood culture [January 11: Presumptive MRSA January 11, 2025: White count 11.1 hemoglobin 12.8 platelets 100 sodium 138 potassium 3.6 BUN 48 creatinine 1.38 bicarb 17 Lactic acid 3.1, 2.7 total bilirubin 2.2 AST 107 ALT 69 EKG tracing personally reviewed by me-sinus tachycardia. Nonspecific T wave changes. Chest x-ray film personally reviewed by me-possible scattered infiltrate January 10: White count 10.2 hemoglobin 9.6 platelets 120 sodium 135 BUN 39 creatinine 1.42 UA positive for leukoesterase, WBC CT scan brain without contrast: No acute process. Chronic atrophy Assessment plan: -Severe sepsis, delirium with blood cultures positive for presumptive MRSA: IV vancomycin. Fluids - Acute delirium with metabolic encephalopathy from underlying sepsis: Improvement - Diabetes mellitus type 2, regular insulin and oral hypoglycemic Hold oral hypoglycemic. Decrease Lantus to 22 units as patient is NPO.. Accu- Cheks with sliding scale. - Advanced cognitive impairment from Alzheimer's dementia - Acute dysphagia. Likely from delirium. Prior to admission patient's tolerating a diet. Currently NPO. Speech therapy is following. - BPH Flomax 0.4 mg a day - Right eye blindness - GERD Prilosec 20 mg nightly - Hypothyroid Synthroid 50 mcg a day - Hyperlipidemia Lipitor 10 mg nightly - PAD Aspirin - No code N.p.o. for now. Change IV fluids to D5W. IV vancomycin. Will transfer to medical floor Past Medical History Past Medical History: CVA/TIA, Diabetes Mellitus, Eye Disorder, Hyperlipidemia, Hypertension, Prostate Disorder, Thyroid Disorder, Vascular Disorder Additional Past Medical History / Comment(s): CVA with R eye blindness, bilateral glaucoma, past HTN but then running low blood pressures and taken off rx, epistaxis, NIDDM type II, BPH, sinus problems, hypothyroid, PVD/L leg. History of Any Multi-Drug Resistant Organisms: None Reported Past Surgical History: Appendectomy, Cholecystectomy Additional Past Surgical History / Comment(s): Colonoscopy Past Anesthesia/Blood Transfusion Reactions: No Reported Reaction Past Psychological History: No Psychological Hx Reported Smoking Status: Never smoker Past Alcohol Use History: Unable to Obtain Past Drug Use History: Unable to Obtain
--- NOTE | 2025-01-13 15:39 | P.PN ---
Subjective Progress Note Date: 01/13/25 Principal diagnosis: Reason for follow-up is UTI and bacteremia Patient is a 89-year-old male with a past medical history significant for CVA/TIA, Diabetes Mellitus, Eye Disorder, Hyperlipidemia, Hypertension, Prostate Disorder, Thyroid Disorder, Vascular Disorder patient has been brought into the hospital for evaluation of mental status changes, patient did have fev er elevated white count positive UA concerning for symptomatic UTI subsequently blood cultures came back positive with MRSA. On today's evaluation that is 01/13/2025, the patient continues to be afebrile, the patient is on room air and breathing comfortably, the Pt is more awake and alert today denies having any chest pain or cough, the patient denies having any abdominal pain no vomiting or any diarrhea has been reported by the nursing staff. Patient white count down to 10.64, creatinine 0.94 blood culture repeat currently pending Objective - Vital Signs Vital signs: Vital Signs Temp 97.5 F L 01/13/25 11:38 Pulse 98 01/13/25 11:38 Resp 17 01/13/25 11:38 BP 134/71 01/13/25 11:38 Pulse Ox 95 01/13/25 11:38 FiO2 21 01/12/25 15:22 Intake & Output 01/12/25 01/13/25 01/13/25 18:59 06:59 18:59 Output Total 700 950 Balance -700 -950 Weight 71.5 kg 71 kg Output: Urine 700 950 Other: Voiding Method Diaper Diaper Incontinent Incontinent External Catheter External Catheter # Voids 2 # Bowel Movements 1 - Exam GENERAL DESCRIPTION: An elderly male lying in bed in no distress RESPIRATORY SYSTEM: Unlabored breathing , decreased breath sounds at bases HEART: S1 S2 regular rate and rhythm , ABDOMEN: Soft , no tenderness EXTREMITIES: No edema feet - Labs CBC & Chem 7: 01/13/25 05:31 01/13/25 05:31 Labs: Abnormal Lab Results - Last 24 Hours (Table) 01/13/25 01/13/25 Range/Units 05:31 05:31 WBC 10.64 H (4.50-10.00) 10*3/uL Hgb 12.9 L (13.0-17.0) g/dL Hct 39.1 L (39.6-50.0) % Plt Count 73 L (140-440) 10*3/uL Immature Gran # 0.07 H (0.00-0.04) 10*3/uL Neutrophils # (Manual) 8.83 H (1.3-7.7) k/uL Sodium 149 H (137-145) mmol/L Potassium 3.4 L (3.5-5.1) mmol/L Chloride 116 H (98-107) mmol/L Carbon Dioxide 18 L (22-30) mmol/L BUN 40 H (9-20) mg/dL Assessment and Plan (1) Sepsis Current Visit: Yes Status: Acute Code(s): A41.9 - SEPSIS, UNSPECIFIED [facility] SNOMED Code(s): 13557463 (2) UTI (urinary tract infection) Current Visit: Yes Status: Acute Code(s): N39.0 - URINARY TRACT INFECTION, SITE NOT SPECIFIED SNOMED Code(s): 45322882 (3) Leukocytosis Current Visit: Yes Status: Acute Code(s): D72.829 - ELEVATED WHITE BLOOD CELL COUNT, UNSPECIFIED SNOMED Code(s): 128552293 (4) MRSA bacteremia Current Visit: Yes Status: Acute Code(s): R78.81 - BACTEREMIA; B95.62 - METHICILLIN RESIS STAPH INFCT CAUSING DISEASES CLASSD [id number] SNOMED Code(s): 68335884552133172 Plan: 1patient presented to hospital with sepsis in this patient who did have a fever tachycardia hypotension source likely urinary however underlying abdominal source not entirely excluded keeping in mind he did have elevated liver enzymes and likely will need to cover for enteric gram-negative pathogen 2-patient did have multiple comorbidities including diabetes prostate disorder hypertension and hyperlipidemia complicating his overall clinical picture 3- ultrasound of the abdomen with no evidence of any hepatobiliary disease or evidence of any hydronephrosis 4-patient with MRSA bacteremia source is likely urinary blood culture repeat currently pending patient will be treated with vancomycin pharmacy to dose will need a PICC line and outpatient IV antibiotic on discharge Dictation was produced using [employer] dictation software. please excuse any g rammatical, word or spelling errors. Time with Patient: Less than 30
[2025-01-13 16:31] LABS: Glucose,Whole Blood 136 mg/dL (70-110)
[2025-01-13 20:05] LABS: Glucose,Whole Blood 195 mg/dL (70-110)
[2025-01-14 06:11] LABS: African American GFR (CKD) >90 (>60 ml/min/1.73 sqM); Non-African American GFR(CKD) 80 (>60 ml/min/1.73 sqM)
[2025-01-14 06:18] LABS: Glucose,Whole Blood 198 mg/dL (70-110)
[2025-01-14] MEDS: INSULIN GLARGINE (LANTUS) 100 UNIT/ML SYR SQ SCH (06:44)
[2025-01-14 11:46] LABS: Glucose,Whole Blood 86 mg/dL (70-110)
[2025-01-14 16:50] LABS: Glucose,Whole Blood 93 mg/dL (70-110)
--- NOTE | 2025-01-14 19:04 | P.PN ---
Progress Note - Text Progress Note Date: 01/14/25 Chief Complaint: Altered mentation This is a 89-year-old patient, brought into the ER from [facility]. Patient is delirious in the ER. Unable to give a history. Per the EMS report: Nurse stated patient been having fevers for last couple of days. Was being given Tylenol. Previous night patient was tested positive for UTI. In daycare having more altered mentation. Has underlying dementia. Patient is attending Dr. Mandujano order the patient to be transferred to the hospital. Patient may speak a word. It was morning. Patient here in the ER his morning. Awake. Attempts to talk but barely able to do so. Had a temperature 102.4 here. January 12: Still a bit delirious. But better than yesterday. Attempting to talk a bit more. Blood cultures x 2 sets coming back positive for MRSA. Presumptive. IV vancomycin. Last fever spike was last night of 101.1. Per ID Zosyn discontinued. January 13: Patient likely answering questions. Little bit confused. Mentation not fluctuating. Spoke to Racquel from speech therapist. This morning he did not really follow commands. She will try again this afternoon. No further fever. Getting IV vancomycin for MRSA. Will change IV fluids to D5W. Because patient is NPO. Cut back Lantus to 22 units. January 14: Family is at bedside. Because of mentation patient remains NPO. Diet. Will attempt to speak. Getting vancomycin. IV fluids D5.45. Will reduce dose of Lantus Active Medications Acetaminophen (Acetaminophen Tab 325 Mg Tab) 650 mg PO Q6HR PRN PRN Reason: Mild Pain or Fever > 100.5 Last Admin: 01/11/25 20:16 Dose: 650 mg Artificial Tears (Artificial Tears-Hypromellose Drops 15 Ml Btl) 1 drops BOTH EYES BID [facility] Last Admin: 01/14/25 09:17 Dose: 1 drops Aspirin (Aspirin 81 Mg) 81 mg PO DAILY [facility] Last Admin: 01/14/25 09:23 Dose: Not Given Atorvastatin Calcium (Atorvastatin 10 Mg Tab) 10 mg PO HS [facility] Last Admin: 01/13/25 20:29 Dose: Not Given Brimonidine Tartrate (Brimonidine Tartrate 0.2% Drops 5 Ml Btl) 1 drops BOTH EYES BID [facility] Last Admin: 01/14/25 09:18 Dose: 1 drops Cholecalciferol (Cholecalciferol 25 Mcg (1000 Iu) Tablet) 50 mcg PO DAILY [facility] Last Admin: 01/14/25 09:23 Dose: Not Given Dapagliflozin (Dapagliflozin Propanediol 10 Mg Tablet) 10 mg PO DAILY [facility] Last Admin: 01/14/25 09:23 Dose: Not Given Dextrose/Water (Dextrose 50% Syringe 50 Ml) 25 ml IVP PER PROTOCOL PRN; Protocol PRN Reason: Hypoglycemia Dextrose/Water (Dextrose 50% Syringe 50 Ml) 50 ml IVP PER PROTOCOL PRN; Protocol PRN Reason: Hypoglycemia Enoxaparin Sodium (Enoxaparin 40 Mg/0.4 Ml Syringe) 40 mg SQ DAILY [facility] Last Admin: 01/14/25 09:16 Dose: 40 mg Ferrous Sulfate (Ferrous Sulfate 325 Mg Tab) 325 mg PO DAILY [facility] Last Admin: 01/14/25 09:23 Dose: Not Given Acetaminophen 1,000 mg/ IV (Solution) 100 mls @ 400 mls/hr IVPB ONCE PRN PRN Reason: fever >101 Last Admin: 01/11/25 23:25 Dose: 400 mls/hr Vancomycin HCl 1,250 mg/ (Sodium Chloride) 250 mls @ 125 mls/hr IVPB Q16H [facility] Last Admin: 01/14/25 06:17 Dose: 125 mls/hr Dextrose/Sodium Chloride (Dextrose 5%-1/2ns Iv Soln) 1,000 mls @ 100 mls/hr IV .Q10H [facility] Last Admin: 01/14/25 12:08 Dose: 100 mls/hr Insulin Glargine (Insulin Glargine (Lantus) 100 Unit/Ml Syr) 22 unit SQ DAILY@0700 [facility] Last Admin: 01/14/25 06:44 Dose: 22 unit Insulin Human Lispro (Insulin Lispro (Humalog) 100 Unit/Ml 10 Ml Vl) 0 unit SQ ACHS [facility]; Protocol Last Admin: 01/14/25 16:51 Dose: Not Given Latanoprost (Latanoprost 0.005% Ophth Drops 2.5 Ml Btl) 1 drops BOTH EYES HS [facility] Last Admin: 01/13/25 20:29 Dose: Not Given Levothyroxine Sodium (Levothyroxine 50 Mcg Tab) 50 mcg PO DAILY@0630 [facility] Last Admin: 01/14/25 06:45 Dose: Not Given Midodrine (Midodrine 5 Mg Tab) 5 mg PO TID [facility] Last Admin: 01/14/25 15:15 Dose: Not Given Miscellaneous Information (Vancomycin Trough Due 1 Each Misc) 0 each MISCELLANE DIRECTED ONE Stop: 01/14/25 20:01 Multivitamins (Multivitamins, Thera 1 Each Tab) 1 each PO DAILY [facility] Last Admin: 01/14/25 09:23 Dose: Not Given Multivitamins/Minerals (Vit A,C & M-Yujtpu-Ohgrcqgv 1 Each Tab) 1 each PO DAILY [facility] Last Admin: 01/14/25 09:24 Dose: Not Given Naloxone HCl (Naloxone 0.4 Mg/Ml 1 Ml Vial) 0.2 mg IV Q2M PRN PRN Reason: Opioid Reversal Non-Formulary Medication (Brinzolamide [Azopt 1% Ophth Susp]) 1 drop LEFT EYE BID [facility] Last Admin: 01/14/25 09:18 Dose: Not Given Ondansetron HCl (Ondansetron 4 Mg/2 Ml Vial) 4 mg IVP Q8HR PRN PRN Reason: Nausea And Vomiting Tamsulosin HCl (Tamsulosin 0.4 Mg Cap.Er.24h) 0.4 mg PO DAILY [facility] Last Admin: 01/14/25 09:24 Dose: Not Given Timolol Maleate (Timolol 0.5% Ophth Drops 5 Ml Btl) 1 drops BOTH EYES BID [facility] Last Admin: 01/14/25 09:19 Dose: 1 drops Social history: Patient came in from [facility]. Does use a walker. Non-smoker. Physical examination: VITAL SIGNS: 98.6, 98, 17, 124 x 67, 97% GENERAL: Tired sleepy. EYES: Right eye cloudy. Arcus senilis left eye, HEENT: [External appearance of nose and ears normal, oral cavity dry mucous membrane. NECK: JVD not raised; masses not palpable. HEART: First and second heart sounds are normal; no edema. LUNGS: Respiratory rate normal; clear to auscultation. ABDOMEN: Soft, nontender, liver spleen not palpable, no masses palpable. PSYCH: Tired sleepy. MUSCULOSKELETAL:No Clubbing/cyanosis;muscles-grossly intact NEUROLOGICAL: Right eye blind. Cranial nerves grossly intact; no facial asymmetry, moving his limbs. Following, once INVESTIGATIONS, reviewed in the clinical context: January 13: White count 10.8. Hemoglobin 12.9 sodium 149 potassium 3.4. 40 creatinine 0.94 Blood culture [January 11: Presumptive MRSA January 11, 2025: White count 11.1 hemoglobin 12.8 platelets 100 sodium 138 potassium 3.6 BUN 48 creatinine 1.38 bicarb 17 Lactic acid 3.1, 2.7 total bilirubin 2.2 AST 107 ALT 69 EKG tracing personally reviewed by me-sinus tachycardia. Nonspecific T wave changes. Chest x-ray film personally reviewed by me-possible scattered infiltrate January 10: White count 10.2 hemoglobin 9.6 platelets 120 sodium 135 BUN 39 creatinine 1.42 UA positive for leukoesterase, WBC CT scan brain without contrast: No acute process. Chronic atrophy Assessment plan: -Severe sepsis, delirium with blood cultures positive for presumptive MRSA: IV vancomycin. Fluids - Acute delirium with metabolic encephalopathy from underlying sepsis: - Diabetes mellitus type 2, regular insulin and oral hypoglycemic Hold oral hypoglycemic. Decrease Lantus to 16 units as patient is NPO.. Accu- Cheks with sliding scale. - Advanced cognitive impairment from Alzheimer's dementia - Acute dysphagia. Likely from delirium. Prior to admission patient's tolerating a diet. Currently NPO. Speech therapy is following. - BPH Flomax 0.4 mg a day - Right eye blindness - GERD Prilosec 20 mg nightly - Hypothyroid Synthroid 50 mcg a day - Hyperlipidemia Lipitor 10 mg nightly - PAD Aspirin - No code Discussed with family at the bedside. Prognosis guarded. Continue current treatment plan. Past Medical History Past Medical History: CVA/TIA, Diabetes Mellitus, Eye Disorder, Hyperlipidemia, Hypertension, Prostate Disorder, Thyroid Disorder, Vascular Disorder Additional Past Medical History / Comment(s): CVA with R eye blindness, bilateral glaucoma, past HTN but then running low blood pressures and taken off rx, epistaxis, NIDDM type II, BPH, sinus problems, hypothyroid, PVD/L leg. History of Any Multi-Drug Resistant Organisms: None Reported Past Surgical History: Appendectomy, Cholecystectomy Additional Past Surgical History / Comment(s): Colonoscopy Past Anesthesia/Blood Transfusion Reactions: No Reported Reaction Past Psychological History: No Psychological Hx Reported Smoking Status: Never smoker Past Alcohol Use History: Unable to Obtain Past Drug Use History: Unable to Obtain
[2025-01-14 23:03] LABS: Glucose,Whole Blood 166 mg/dL (70-110)
[2025-01-15] MEDS: VANCOMYCIN TROUGH DUE 1 EACH MISC MISCELLANE ONE (00:24)
[2025-01-15 05:18] LABS: Basophils # (A) 0.02 10*3/uL (0.00-0.10); Basophils % (A) 0.2 %; HCT 40.7 % (39.6-50.0); HGB 13.1 g/dL (13.0-17.0); Lymphocytes % (A) 10.3 %; MCH 28.9 pg (27.0-32.0); MCHC 32.2 g/dL (32.0-37.0); MCV 89.8 fL (80.0-97.0); Mean Platelet Volume 10.2 fL (9.5-12.2); Monocytes # (A) 0.49 10*3/uL (0.20-1.00); Monocytes % (A) 5.6 %; Neutrophils # (A) 7.22 10*3/uL (1.80-7.70); Neutrophils % (A) 82.4 %; RBC 4.53 10*6/uL (4.40-5.60); WBC 8.76 10*3/uL (4.50-10.00)
[2025-01-15 05:25] LABS: Platelet Count 63 10*3/uL (140-440)
[2025-01-15 05:32] LABS: African American GFR (CKD) >90 (>60 ml/min/1.73 sqM); Anion Gap 13 mmol/L; Blood Urea Nitrogen 31 mg/dL (9-20); Calcium 8.4 mg/dL (8.4-10.2); Carbon Dioxide 20 mmol/L (22-30); Chloride 122 mmol/L (98-107); Glucose 194 mg/dL (74-99); Non-African American GFR(CKD) 81 (>60 ml/min/1.73 sqM); Potassium 3.1 mmol/L (3.5-5.1); Sodium 155 mmol/L (137-145)
[2025-01-15] MEDS: LACTATED RINGERS 1,000 ML IV SCH (06:04)
[2025-01-15 06:10] LABS: Glucose,Whole Blood 211 mg/dL (70-110)
[2025-01-15] MEDS: INSULIN GLARGINE (LANTUS) 100 UNIT/ML SYR SQ SCH (06:17)
[2025-01-15 11:44] LABS: Glucose,Whole Blood 150 mg/dL (70-110)
[2025-01-15] MEDS: VANCOMYCIN 1,500 MG in SODIUM CHLORIDE 0.9% 500 ML 500 ML IVPB SCH (12:16)
[2025-01-15 17:02] LABS: Glucose,Whole Blood 114 mg/dL (70-110)
--- NOTE | 2025-01-15 17:45 | CT ---
EXAMINATION TYPE: CT abdomen pelvis w con DATE OF EXAM: 01/15/2025 5:35 PM COMPARISON: Ultrasound study 01/11/2025. CLINICAL INDICATION: Male, 89 years old with history of recurrent pos bld cult MRSA; TECHNIQUE: Axial CT abdomen pelvis w con;Sagittal and coronal reformats were created on a separate w orkstation. FINDINGS: LOWER CHEST: Trace bilateral pleural effusions and patchy nodular groundglass opacities and partially visualized lower lungs. Coronary artery calcifications. ABDOMEN LIVER: Unremarkable GALLBLADDER AND BILE DUCTS: The gallbladder is surgically absent. PANCREAS: Unremarkable. SPLEEN: Unremarkable. ADRENAL GLANDS: Unremarkable. KIDNEYS AND URETERS: No evidence of hydronephrosis or renal calculus. The ureters are unremarkable. PELVIS BLADDER: No evidence for wall thickening or mass given limitations of exam. REPRODUCTIVE: Unremarkable. ABDOMEN & PELVIS STOMACH AND BOWEL: Stomach and duodenum are unremarkable. Moderate colonic stool burden. No evidence of bowel obstruction. PERITONEUM/RETROPERITONEUM: No evidence of pneumoperitoneum. Small volume free fluid in the right upp er quadrant. VASCULATURE: No evidence of aortic aneurysm. MUSCULOSKELETAL: No acute osseous abnormalities. Old fracture deformity of the right pubic ramus. Rec ommend lumbar spine degenerative changes. LYMPH NODES: No gross evidence for lymphadenopathy. SOFT TISSUE/ABDOMINAL WALL: Unremarkable IMPRESSION: 1. Trace bilateral pleural effusions and patchy groundglass and nodular opacities in the partially v isualized lower lungs suggestive of pneumonia in the appropriate clinical setting. 2. Small volume free fluid/ascites in the right upper quadrant the abdomen. 3. Otherwise, no additional evidence of an acute abnormality in the abdomen/pelvis. [facility], , 01/15/2025 5:42 PM
--- NOTE | 2025-01-15 18:59 | P.PN ---
Progress Note - Text Progress Note Date: 01/15/25 Chief Complaint: Altered mentation This is a 89-year-old patient, brought into the ER from [facility]. Patient is delirious in the ER. Unable to give a history. Per the EMS report: Nurse stated patient been having fevers for last couple of days. Was being given Tylenol. Previous night patient was tested positive for UTI. In daycare having more altered mentation. Has underlying dementia. Patient is attending Dr. Mandujano order the patient to be transferred to the hospital. Patient may speak a word. It was morning. Patient here in the ER his morning. Awake. Attempts to talk but barely able to do so. Had a temperature 102.4 here. January 12: Still a bit delirious. But better than yesterday. Attempting to talk a bit more. Blood cultures x 2 sets coming back positive for MRSA. Presumptive. IV vancomycin. Last fever spike was last night of 101.1. Per ID Zosyn discontinued. January 13: Patient likely answering questions. Little bit confused. Mentation not fluctuating. Spoke to Racquel from speech therapist. This morning he did not really follow commands. She will try again this afternoon. No further fever. Getting IV vancomycin for MRSA. Will change IV fluids to D5W. Because patient is NPO. Cut back Lantus to 22 units. January 14: Family is at bedside. Because of mentation patient remains NPO. Diet. Will attempt to speak. Getting vancomycin. IV fluids D5.45. Will reduce dose of Lantus January 15: Patient attempted to speak a bit better today. Patient's son and [id number] from [place] visiting. Earlier today sodium 155. Increase IV fluids to 125 cc an hour.. NPO. Spoke to the son about prognosis being guarded given his age and comorbidities. Repeat blood culture from January [address] scan abdomen pelvis ordered with IV contrast. Active Medications Acetaminophen (Acetaminophen Tab 325 Mg Tab) 650 mg PO Q6HR PRN PRN Reason: Mild Pain or Fever > 100.5 Last Admin: 01/11/25 20:16 Dose: 650 mg Artificial Tears (Artificial Tears-Hypromellose Drops 15 Ml Btl) 1 drops BOTH EYES BID [facility] Last Admin: 01/15/25 07:34 Dose: 1 drops Aspirin (Aspirin 81 Mg) 81 mg PO DAILY [facility] Last Admin: 01/15/25 07:25 Dose: Not Given Atorvastatin Calcium (Atorvastatin 10 Mg Tab) 10 mg PO HS [facility] Last Admin: 01/15/25 00:25 Dose: Not Given Brimonidine Tartrate (Brimonidine Tartrate 0.2% Drops 5 Ml Btl) 1 drops BOTH EYES BID [facility] Last Admin: 01/15/25 07:34 Dose: 1 drops Cholecalciferol (Cholecalciferol 25 Mcg (1000 Iu) Tablet) 50 mcg PO DAILY [facility] Last Admin: 01/15/25 07:26 Dose: Not Given Dapagliflozin (Dapagliflozin Propanediol 10 Mg Tablet) 10 mg PO DAILY [facility] Last Admin: 01/15/25 07:26 Dose: Not Given Dextrose/Water (Dextrose 50% Syringe 50 Ml) 25 ml IVP PER PROTOCOL PRN; Protocol PRN Reason: Hypoglycemia Dextrose/Water (Dextrose 50% Syringe 50 Ml) 50 ml IVP PER PROTOCOL PRN; Protocol PRN Reason: Hypoglycemia Enoxaparin Sodium (Enoxaparin 40 Mg/0.4 Ml Syringe) 40 mg SQ DAILY [facility] Last Admin: 01/15/25 07:33 Dose: 40 mg Ferrous Sulfate (Ferrous Sulfate 325 Mg Tab) 325 mg PO DAILY [facility] Last Admin: 01/15/25 07:26 Dose: Not Given Acetaminophen 1,000 mg/ IV (Solution) 100 mls @ 400 mls/hr IVPB ONCE PRN PRN Reason: fever >101 Last Admin: 01/11/25 23:25 Dose: 400 mls/hr Vancomycin HCl 1,500 mg/ (Sodium Chloride) 500 mls @ 167 mls/hr IVPB Q16H [facility] Last Admin: 01/15/25 12:16 Dose: 167 mls/hr Dextrose/Sodium Chloride (Dextrose 5%-1/2ns Iv Soln) 1,000 mls @ 125 mls/hr IV .Q8H [facility] Insulin Glargine (Insulin Glargine (Lantus) 100 Unit/Ml Syr) 16 unit SQ DAILY@0700 [facility] Last Admin: 01/15/25 06:17 Dose: 16 unit Insulin Human Lispro (Insulin Lispro (Humalog) 100 Unit/Ml 10 Ml Vl) 0 unit SQ ACHS [facility]; Protocol Last Admin: 01/15/25 17:16 Dose: Not Given Latanoprost (Latanoprost 0.005% Ophth Drops 2.5 Ml Btl) 1 drops BOTH EYES HS [facility] Last Admin: 01/14/25 22:56 Dose: 1 drops Levothyroxine Sodium (Levothyroxine 50 Mcg Tab) 50 mcg PO DAILY@0630 [facility] Last Admin: 01/15/25 05:31 Dose: Not Given Midodrine (Midodrine 5 Mg Tab) 5 mg PO TID [facility] Last Admin: 01/15/25 15:46 Dose: Not Given Multivitamins (Multivitamins, Thera 1 Each Tab) 1 each PO DAILY [facility] Last Admin: 01/15/25 07:26 Dose: Not Given Multivitamins/Minerals (Vit A,C & W-Hlzqju-Ssuqidzu 1 Each Tab) 1 each PO DAILY [facility] Last Admin: 01/15/25 07:27 Dose: Not Given Naloxone HCl (Naloxone 0.4 Mg/Ml 1 Ml Vial) 0.2 mg IV Q2M PRN PRN Reason: Opioid Reversal Non-Formulary Medication (Brinzolamide [Azopt 1% Ophth Susp]) 1 drop LEFT EYE BID [facility] Last Admin: 01/15/25 07:26 Dose: Not Given Ondansetron HCl (Ondansetron 4 Mg/2 Ml Vial) 4 mg IVP Q8HR PRN PRN Reason: Nausea And Vomiting Tamsulosin HCl (Tamsulosin 0.4 Mg Cap.Er.24h) 0.4 mg PO DAILY [facility] Last Admin: 01/15/25 07:27 Dose: Not Given Timolol Maleate (Timolol 0.5% Ophth Drops 5 Ml Btl) 1 drops BOTH EYES BID [facility] Last Admin: 01/15/25 07:34 Dose: 1 drops Social history: Patient came in from [facility]. Does use a walker. Non-smoker. Physical examination: VITAL SIGNS: 98.4, 94, 19, 154/80, 96% room air GENERAL: Laying in bed. Tries to answer questions. EYES: Right eye cloudy. Arcus senilis left eye, HEENT: [External appearance of nose and ears normal, oral cavity dry mucous membrane. NECK: JVD not raised; masses not palpable. HEART: First and second heart sounds are normal; no edema. LUNGS: Respiratory rate normal; clear to auscultation. ABDOMEN: Soft, nontender, liver spleen not palpable, no masses palpable. PSYCH: Tired. Attempting to talk. MUSCULOSKELETAL:No Clubbing/cyanosis;muscles-grossly intact NEUROLOGICAL: Right eye blind. Cranial nerves grossly intact; no facial asymmetry, moving his limbs. Following, once INVESTIGATIONS, reviewed in the clinical context: January 15: White count 8.7 hemoglobin 13.1 platelets 63 sodium 155 potassium 3.1 BUN 31 creatinine 0.8 January 13: White count 10.8. Hemoglobin 12.9 sodium 149 potassium 3.4. 40 creatinine 0.94 Blood culture [January 11: Presumptive MRSA January 11, 2025: White count 11.1 hemoglobin 12.8 platelets 100 sodium 138 potassium 3.6 BUN 48 creatinine 1.38 bicarb 17 Lactic acid 3.1, 2.7 total bilirubin 2.2 AST 107 ALT 69 EKG tracing personally reviewed by me-sinus tachycardia. Nonspecific T wave changes. Chest x-ray film personally reviewed by me-possible scattered infiltrate January 10: White count 10.2 hemoglobin 9.6 platelets 120 sodium 135 BUN 39 creatinine 1.42 UA positive for leukoesterase, WBC CT scan brain without contrast: No acute process. Chronic atrophy Assessment plan: -Severe sepsis, delirium with blood cultures positive for MRSA: Repeat blood cultures from January 13 positive Possible source UTI IV vancomycin. Fluids Will order CT scan abdomen pelvis to look for additional source of infection - Acute delirium with metabolic encephalopathy from underlying sepsis:: Slow to respond - Diabetes mellitus type 2, regular insulin and oral hypoglycemic Hold oral hypoglycemic. Lantus to 16 units as patient is NPO.. Accu-Cheks with sliding scale. - Hyper natremia, secondary to free water deficit. Getting IV fluids. Increase D5W to 125 cc an hour. Given his age have to be careful with amount of fluid. - Advanced cognitive impairment from Alzheimer's dementia - Acute dysphagia.-From delirium. Prior to admission patient's tolerating a diet. Currently NPO. Speech therapy is following. - BPH Flomax 0.4 mg a day - Right eye blindness - GERD Prilosec 20 mg nightly - Hypothyroid Synthroid IV every 48 hours - Hyperlipidemia Lipitor 10 mg nightly - PAD Aspirin - No code Increase IV fluids to D5W. CT scan abdomen pelvis with IV contrast. Prognosis guarded. Remains n.p.o. Past Medical History Past Medical History: CVA/TIA, Diabetes Mellitus, Eye Disorder, Hyperlipidemia, Hypertension, Prostate Disorder, Thyroid Disorder, Vascular Disorder Additional Past Medical History / Comment(s): CVA with R eye blindness, bilateral glaucoma, past HTN but then running low blood pressures and taken off rx, epistaxis, NIDDM type II, BPH, sinus problems, hypothyroid, PVD/L leg. History of Any Multi-Drug Resistant Organisms: None Reported Past Surgical History: Appendectomy, Cholecystectomy Additional Past Surgical History / Comment(s): Colonoscopy Past Anesthesia/Blood Transfusion Reactions: No Reported Reaction Past Psychological History: No Psychological Hx Reported Smoking Status: Never smoker Past Alcohol Use History: Unable to Obtain Past Drug Use History: Unable to Obtain
[2025-01-15] MEDS: DEXTROSE 5%-0.45% NACL 1,000 ML IV SCH (19:10)
[2025-01-15 21:28] LABS: Glucose,Whole Blood 161 mg/dL (70-110)
[2025-01-15] MEDS: LEVOTHYROXINE IVP 100 MCG/5 ML VIAL IV SCH (21:53)
--- NOTE | 2025-01-15 22:45 | P.PN ---
Subjective Progress Note Date: 01/14/25 Principal diagnosis: Reason for follow-up is UTI and bacteremia Patient is a 89-year-old male with a past medical history significant for CVA/TIA, Diabetes Mellitus, Eye Disorder, Hyperlipidemia, Hypertension, Prostate Disorder, Thyroid Disorder, Vascular Disorder patient has been brought into the hospital for evaluation of mental status changes, patient did have fev er elevated white count positive UA concerning for symptomatic UTI subsequently blood cultures came back positive with MRSA. On today's evaluation that is 01/14/2025, patient did not have any fever and patient is breathing comfortably on room air, patient slightly sleepy today not a very good historian no vomiting or diarrhea has been reported. Patient white count is down 10.64 as of yesterday no CBC was done today Objective - Vital Signs Vital signs: Vital Signs Temp 98.1 F 01/14/25 07:44 Pulse 106 H 01/14/25 07:44 Resp 17 01/14/25 07:44 BP 155/73 01/14/25 07:44 Pulse Ox 95 01/14/25 07:44 FiO2 21 01/12/25 15:22 Intake & Output 01/13/25 01/14/25 01/14/25 18:59 06:59 18:59 Output Total 700 1250 Balance -700 -1250 Weight 72 kg Output: Urine 700 1250 Other: Voiding Method Diaper Diaper Incontinent Incontinent External Catheter External Catheter - Exam GENERAL DESCRIPTION: An elderly male lying in bed in no distress RESPIRATORY SYSTEM: Unlabored breathing , decreased breath sounds at bases HEART: S1 S2 regular rate and rhythm , ABDOMEN: Soft , no tenderness EXTREMITIES: No edema feet - Labs CBC & Chem 7: 01/15/25 04:36 01/15/25 04:36 Labs: Abnormal Lab Results - Last 24 Hours (Table) 01/13/25 01/13/25 01/14/25 Range/Units 16:29 20:02 06:17 POC Glucose (mg/dL) 136 H 195 H 198 H (70-110) mg/dL Microbiology - Last 24 Hours (Table) 01/13/25 05:31 Blood Culture Gram Stain - Preliminary Blood 01/11/25 07:48 Blood Culture Gram Stain - Final Blood Blood Culture - Final Methicillin resist S. aureus 01/11/25 08:03 Blood Culture Gram Stain - Final Blood Blood Culture - Final Methicillin resist S. aureus Molecular ID Assessment and Plan (1) Sepsis Current Visit: Yes Status: Acute Code(s): A41.9 - SEPSIS, UNSPECIFIED ORGANISM SNOMED Code(s): 86314615 (2) UTI (urinary tract infection) Current Visit: Yes Status: Acute Code(s): N39.0 - URINARY TRACT INFECTION, SITE NOT SPECIFIED SNOMED Code(s): 88671002 (3) Leukocytosis Current Visit: Yes Status: Acute Code(s): D72.829 - ELEVATED WHITE BLOOD CELL COUNT, UNSPECIFIED SNOMED Code(s): 742165641 (4) MRSA bacteremia Current Visit: Yes Status: Acute Code(s): R78.81 - BACTEREMIA; B95.62 - METHICILLIN RESIS STAPH INFCT CAUSING DISEASES CLASSD [id number] SNOMED Code(s): 38229713081545400 Plan: 1patient presented to hospital with sepsis in this patient who did have a fever tachycardia hypotension source likely urinary however underlying abdominal source not entirely excluded keeping in mind he did have elevated liver enzymes and likely will need to cover for enteric gram-negative pathogen 2-patient did have multiple comorbidities including diabetes prostate disorder hypertension and hyperlipidemia complicating his overall clinical picture 3- ultrasound of the abdomen with no evidence of any hepatobiliary disease or evidence of any hydronephrosis 4-patient with MRSA bacteremia source is likely urinary blood culture repeat currently pending 5patient will be treated with vancomycin pharmacy to dose while waiting for repeat culture to finalize Dictation was produced using [employer] dictation software. please excuse any grammatical, word or spelling errors. Time with Patient: Less than 30
--- NOTE | 2025-01-15 22:47 | P.PN ---
Subjective Progress Note Date: 01/15/25 Principal diagnosis: Reason for follow-up is UTI and bacteremia Patient is a 89-year-old male with a past medical history significant for CVA/TIA, Diabetes Mellitus, Eye Disorder, Hyperlipidemia, Hypertension, Prostate Disorder, Thyroid Disorder, Vascular Disorder patient has been brought into the hospital for evaluation of mental status changes, patient did have fev er elevated white count positive UA concerning for symptomatic UTI subsequently blood cultures came back positive with MRSA. On today's evaluation that is 01/15/2025, Patient is afebrile patient is cu rrently on room air and denies having any shortness of breath, the patient denies any chest pain or cough, the patient denies any nausea vomiting did not have any abdominal pain and no diarrhea Patient white count normalized to 8.76 creatinine 0.80 blood culture repeat from 411 came back positive Objective - Vital Signs Vital signs: Vital Signs Temp 98.4 F 01/15/25 14:03 Pulse 94 01/15/25 14:03 Resp 19 01/15/25 14:03 BP 154/80 01/15/25 14:03 Pulse Ox 96 01/15/25 14:03 FiO2 21 01/12/25 15:22 Intake & Output 01/15/25 01/15/25 01/16/25 06:59 18:59 06:59 Output Total 900 1350 Balance -900 -1350 Weight 73 kg Output: Urine 900 1350 Other: Voiding Method External Catheter External Catheter External Catheter - Exam GENERAL DESCRIPTION: An elderly male lying in bed in no distress RESPIRATORY SYSTEM: Unlabored breathing , decreased breath sounds at bases HEART: S1 S2 regular rate and rhythm , ABDOMEN: Soft , no tenderness EXTREMITIES: No edema feet - Labs CBC & Chem 7: 01/15/25 04:36 01/15/25 04:36 Labs: Abnormal Lab Results - Last 24 Hours (Table) 01/14/25 01/15/25 01/15/25 Range/Units 23:01 04:36 04:36 RDW 17.0 H (11.5-14.5) % Plt Count 63 L (140-440) 10*3/uL Immature Gran # 0.13 H (0.00-0.04) 10*3/uL Eosinophils # 0.00 L (0.04-0.35) 10*3/uL Sodium 155 H (137-145) mmol/L Potassium 3.1 L (3.5-5.1) mmol/L Chloride 122 H (98-107) mmol/L Carbon Dioxide 20 L (22-30) mmol/L BUN 31 H (9-20) mg/dL Glucose 194 H (74-99) mg/dL POC Glucose (mg/dL) 166 H (70-110) mg/dL 01/15/25 01/15/25 01/15/25 Range/Units 06:08 11:43 17:00 RDW (11.5-14.5) % Plt Count (140-440) 10*3/uL Immature Gran # (0.00-0.04) 10*3/uL Eosinophils # (0.04-0.35) 10*3/uL Sodium (137-145) mmol/L Potassium (3.5-5.1) mmol/L Chloride (98-107) mmol/L Carbon Dioxide (22-30) mmol/L BUN (9-20) mg/dL Glucose (74-99) mg/dL POC Glucose (mg/dL) 211 H 150 H 114 H (70-110) mg/dL 01/15/25 Range/Units 21:26 RDW (11.5-14.5) % Plt Count (140-440) 10*3/uL Immature Gran # (0.00-0.04) 10*3/uL Eosinophils # (0.04-0.35) 10*3/uL Sodium (137-145) mmol/L Potassium (3.5-5.1) mmol/L Chloride (98-107) mmol/L Carbon Dioxide (22-30) mmol/L BUN (9-20) mg/dL Glucose (74-99) mg/dL POC Glucose (mg/dL) 161 H (70-110) mg/dL Microbiology - Last 24 Hours (Table) 01/13/25 05:31 Blood Culture Gram Stain - Preliminary Blood Blood Culture - Preliminary Presumptive MRSA Assessment and Plan (1) Sepsis Current Visit: Yes Status: Acute Code(s): A41.9 - SEPSIS, UNSPECIFIED ORGANISM SNOMED Code(s): 02401730 (2) UTI (urinary tract infection) Current Visit: Yes Status: Acute Code(s): N39.0 - URINARY TRACT INFECTION, SITE NOT SPECIFIED SNOMED Code(s): 81924402 (3) Leukocytosis Current Visit: Yes Status: Acute Code(s): D72.829 - ELEVATED WHITE BLOOD CELL COUNT, UNSPECIFIED SNOMED Code(s): 620266127 (4) MRSA bacteremia Current Visit: Yes Status: Acute Code(s): R78.81 - BACTEREMIA; B95.62 - METHICILLIN RESIS STAPH INFCT CAUSING DISEASES CLASSD ELSWHR SNOMED Code(s): 78412399068516561 Plan: 1patient presented to hospital with sepsis in this patient who did have a fever tachycardia hypotension source likely urinary however underlying abdominal source not entirely excluded keeping in mind he did have elevated liver enzymes and likely will need to cover for enteric gram-negative pathogen 2-patient did have multiple comorbidities including diabetes prostate disorder hypertension and hyperlipidemia complicating his overall clinical picture 3- ultrasound of the abdomen with no evidence of any hepatobiliary disease or evidence of any hydronephrosis 4-patient with MRSA bacteremia source is likely urinary blood culture repeat from 01/13/2025 also came back positive concerning for possible deep infection we will check an echocardiogram repeat blood cultures and continue with vancomycin pharmacy to dose Dictation was produced using [employer] software. please excuse any grammatical, word or spelling errors. Time with Patient: Less than 30
[2025-01-16 04:20] LABS: African American GFR (CKD) >90 (>60 ml/min/1.73 sqM); Non-African American GFR(CKD) 83 (>60 ml/min/1.73 sqM)
[2025-01-16 06:28] LABS: Glucose,Whole Blood 178 mg/dL (70-110)
[2025-01-16] MEDS: ACETAMINOPHEN SUPPOSITORY 650 MG SUPP RECTAL STA (09:32)
[2025-01-16 12:49] LABS: Glucose,Whole Blood 63 mg/dL (70-110)
--- NOTE | 2025-01-16 12:55 | XR ---
EXAMINATION TYPE: XR chest 1V portable DATE OF EXAM: 01/16/2025 12:29 PM COMPARISON: 01/11/2025 CLINICAL INDICATION: Male, 89 years old with history of fever/sob, , FINDINGS: Heart upper limits of normal in size. Increased interstitial and patchy opacities throughout the mid and lower lungs overall similar to prior. No sizable pleural effusion. IMPRESSION: Similar multifocal patchy and interstitial infiltrates in the mid and lower lungs. Consider multifoca l pneumonia or atypical/COVID pneumonia. Other inflammatory processes such as hypersensitivity pneumo nitis is also a possibility. [facility], Workstation: [facility], 01/16/2025 12:52 PM
[2025-01-16] MEDS: DEXTROSE 50% SYRINGE 50 ML IVP PRN (13:06)
[2025-01-16 13:35] LABS: Glucose,Whole Blood 99 mg/dL (70-110)
[2025-01-16 15:11] LABS: Influenza A Not Detected (Not Detectd); Influenza B Not Detected (Not Detectd); RSV Not Detected (Not Detectd)
--- NOTE | 2025-01-16 15:26 | XR ---
EXAMINATION TYPE: XR chest 1V portable DATE OF EXAM: 01/16/2025 3:18 PM COMPARISON: 01/16/2025 CLINICAL INDICATION: Male, 89 years old with history of shortness of breath, , FINDINGS: Heart mildly enlarged. Multifocal interstitial and patchy opacities persist, slightly worsened from p rior. No sizable pleural effusion on the frontal view. IMPRESSION: Correlate for CHF with patchy pulmonary edema, possibly slightly worsened from earlier today. [facility], Workstation: [email or web address], 01/16/2025 3:24 PM
[2025-01-16 15:39] LABS: Glucose,Whole Blood 80 mg/dL (70-110)
[2025-01-16] MEDS: ACETAMINOPHEN IV (For NPO) 1,000 MG in EMPTY BAG 1 BAG IVPB SCH (15:55)
[2025-01-16] MEDS: FUROSEMIDE 10 MG/ML 4 ML VIAL IV STA (15:56)
[2025-01-16 17:01] LABS: Glucose,Whole Blood 83 mg/dL (70-110)
--- NOTE | 2025-01-16 19:23 | P.PN ---
Progress Note - Text Progress Note Date: 01/16/25 Chief Complaint: Altered mentation This is a 89-year-old patient, brought into the ER from [facility]. Patient is delirious in the ER. Unable to give a history. Per the EMS report: Nurse stated patient been having fevers for last couple of days. Was being given Tylenol. Previous night patient was tested positive for UTI. In daycare having more altered mentation. Has underlying dementia. Patient is attending Dr. Mandujano order the patient to be transferred to the hospital. Patient may speak a word. It was morning. Patient here in the ER his morning. Awake. Attempts to talk but barely able to do so. Had a temperature 102.4 here. January 12: Still a bit delirious. But better than yesterday. Attempting to talk a bit more. Blood cultures x 2 sets coming back positive for MRSA. Presumptive. IV vancomycin. Last fever spike was last night of 101.1. Per ID Zosyn discontinued. January 13: Patient likely answering questions. Little bit confused. Mentation not fluctuating. Spoke to Racquel from speech therapist. This morning he did not really follow commands. She will try again this afternoon. No further fever. Getting IV vancomycin for MRSA. Will change IV fluids to D5W. Because patient is NPO. Cut back Lantus to 22 units. January 14: Family is at bedside. Because of mentation patient remains NPO. Diet. Will attempt to speak. Getting vancomycin. IV fluids D5.45. Will reduce dose of Lantus January 15: Patient attempted to speak a bit better today. Patient's son and gqxdetue-ye-swl from [place] visiting. Earlier today sodium 155. Increase IV fluids to 125 cc an hour.. NPO. Spoke to the son about prognosis being guarded given his age and comorbidities. Repeat blood culture from January [address] scan abdomen pelvis ordered with IV contrast. January 16: Starting a bit congested in the chest. Probable pneumonia. Will add IV ceftazidime. Patient still spiking fevers. Spoke to patient daughter Spring over the phone, she understands prognosis guarded. No artificial feeding. . Patient's oxygen requirement has gone up. Requiring high flow oxygen. Pulmonary is being consulted. Active Medications Acetaminophen (Acetaminophen Tab 325 Mg Tab) 650 mg PO Q6HR PRN PRN Reason: Mild Pain or Fever > 100.5 Last Admin: 01/11/25 20:16 Dose: 650 mg Artificial Tears (Artificial Tears-Hypromellose Drops 15 Ml Btl) 1 drops BOTH EYES BID [facility] Last Admin: 01/16/25 08:20 Dose: 1 drops Aspirin (Aspirin 81 Mg) 81 mg PO DAILY [facility] Last Admin: 01/16/25 08:02 Dose: Not Given Atorvastatin Calcium (Atorvastatin 10 Mg Tab) 10 mg PO HS [facility] Last Admin: 01/15/25 21:46 Dose: Not Given Brimonidine Tartrate (Brimonidine Tartrate 0.2% Drops 5 Ml Btl) 1 drops BOTH EYES BID [facility] Last Admin: 01/16/25 08:21 Dose: 1 drops Cholecalciferol (Cholecalciferol 25 Mcg (1000 Iu) Tablet) 50 mcg PO DAILY [facility] Last Admin: 01/16/25 08:02 Dose: Not Given Dapagliflozin (Dapagliflozin Propanediol 10 Mg Tablet) 10 mg PO DAILY [facility] Last Admin: 01/16/25 08:02 Dose: Not Given Dextrose/Water (Dextrose 50% Syringe 50 Ml) 25 ml IVP PER PROTOCOL PRN; Protocol PRN Reason: Hypoglycemia Last Admin: 01/16/25 13:06 Dose: 25 ml Dextrose/Water (Dextrose 50% Syringe 50 Ml) 50 ml IVP PER PROTOCOL PRN; Protocol PRN Reason: Hypoglycemia Enoxaparin Sodium (Enoxaparin 40 Mg/0.4 Ml Syringe) 40 mg SQ DAILY [facility] Last Admin: 01/16/25 08:20 Dose: 40 mg Ferrous Sulfate (Ferrous Sulfate 325 Mg Tab) 325 mg PO DAILY [facility] Last Admin: 01/16/25 08:02 Dose: Not Given Vancomycin HCl 1,500 mg/ (Sodium Chloride) 500 mls @ 167 mls/hr IVPB Q16H [facility] Last Admin: 01/16/25 03:38 Dose: 167 mls/hr Dextrose/Sodium Chloride (Dextrose 5%-1/2ns Iv Soln) 1,000 mls @ 125 mls/hr IV .Q8H [facility] Last Admin: 01/16/25 10:58 Dose: Not Given Ceftazidime 1 gm/ Sodium (Chloride) 50 mls @ 12.5 mls/hr IVPB Q8HR [facility]; Protocol Last Admin: 01/16/25 13:21 Dose: 12.5 mls/hr Acetaminophen 1,000 mg/ IV (Solution) 100 mls @ 400 mls/hr IVPB Q6HR [facility] Stop: 01/17/25 12:01 Last Admin: 01/16/25 15:55 Dose: 400 mls/hr Insulin Glargine (Insulin Glargine (Lantus) 100 Unit/Ml Syr) 16 unit SQ DAILY@0700 [facility] Last Admin: 01/16/25 06:52 Dose: 16 unit Insulin Human Lispro (Insulin Lispro (Humalog) 100 Unit/Ml 10 Ml Vl) 0 unit SQ ACHS [facility]; Protocol Last Admin: 01/16/25 17:43 Dose: Not Given Latanoprost (Latanoprost 0.005% Ophth Drops 2.5 Ml Btl) 1 drops BOTH EYES HS [facility] Last Admin: 01/15/25 21:54 Dose: 1 drops Levothyroxine Sodium (Levothyroxine Ivp 100 Mcg/5 Ml Vial) 50 mcg IV Q48H [facility] Last Admin: 01/15/25 21:53 Dose: 50 mcg Midodrine (Midodrine 5 Mg Tab) 5 mg PO TID [facility] Last Admin: 01/16/25 15:56 Dose: Not Given Miscellaneous Information (Vancomycin Trough Due 1 Each Misc) 1 each MISCELLANE ONCE ONE Stop: 01/17/25 11:01 Multivitamins (Multivitamins, Thera 1 Each Tab) 1 each PO DAILY [facility] Last Admin: 01/16/25 08:03 Dose: Not Given Multivitamins/Minerals (Vit A,C & K-Irjkkg-Vdhyffkv 1 Each Tab) 1 each PO DAILY [facility] Last Admin: 01/16/25 08:21 Dose: Not Given Naloxone HCl (Naloxone 0.4 Mg/Ml 1 Ml Vial) 0.2 mg IV Q2M PRN PRN Reason: Opioid Reversal Non-Formulary Medication (Brinzolamide [Azopt 1% Ophth Susp]) 1 drop LEFT EYE BID [facility] Last Admin: 01/16/25 08:02 Dose: Not Given Ondansetron HCl (Ondansetron 4 Mg/2 Ml Vial) 4 mg IVP Q8HR PRN PRN Reason: Nausea And Vomiting Tamsulosin HCl (Tamsulosin 0.4 Mg Cap.Er.24h) 0.4 mg PO DAILY [facility] Last Admin: 01/16/25 08:21 Dose: Not Given Timolol Maleate (Timolol 0.5% Ophth Drops 5 Ml Btl) 1 drops BOTH EYES BID [facility] Last Admin: 01/16/25 08:21 Dose: 1 drops Social history: Patient came in from [facility]. Does use a walker. Non-smoker. Physical examination: VITAL SIGNS: 92.6, 109, 26, 116 x 53, 84% on 5 L GENERAL: Laying in bed. Audibly congested. EYES: Right eye cloudy. Arcus senilis left eye, HEENT: [External appearance of nose and ears normal, oral cavity dry mucous membrane. NECK: JVD not raised; masses not palpable. HEART: First and second heart sounds are normal; no edema. LUNGS: Respiratory rate increased, expiratory coarse crackles n. ABDOMEN: Soft, nontender, liver spleen not palpable, no masses palpable. PSYCH: Tired. Attempting to talk. MUSCULOSKELETAL:No Clubbing/cyanosis;muscles-grossly intact NEUROLOGICAL: Right eye blind. Cranial nerves grossly intact; no facial asymmetry, moving his limbs. INVESTIGATIONS, reviewed in the clinical context: CT abdomen pelvis [January 15] possible pneumonia. DJD changes. January 16: Influenza type A, type B, RSV, SARS-CoV-2: Not detected January 15: White count 8.7 hemoglobin 13.1 platelets 63 sodium 155 potassium 3.1 BUN 31 creatinine 0.8 January 13: White count 10.8. Hemoglobin 12.9 sodium 149 potassium 3.4. 40 creatinine 0.94 Blood culture [January 11: Presumptive MRSA January 11, 2025: White count 11.1 hemoglobin 12.8 platelets 100 sodium 138 potassium 3.6 BUN 48 creatinine 1.38 bicarb 17 Lactic acid 3.1, 2.7 total bilirubin 2.2 AST 107 ALT 69 EKG tracing personally reviewed by me-sinus tachycardia. Nonspecific T wave changes. Chest x-ray film personally reviewed by me-possible scattered infiltrate January 10: White count 10.2 hemoglobin 9.6 platelets 120 sodium 135 BUN 39 creat inine 1.42 UA positive for leukoesterase, WBC CT scan brain without contrast: No acute process. Chronic atrophy Assessment plan: -Severe sepsis, delirium with blood cultures positive for MRSA: Repeat blood cultures from January 13 positive: Not improving Possible source UTI IV vancomycin. Fluids Will order CT scan abdomen pelvis to look for additional source of infection - Pneumonia suspect gram-negative organism/aspiration, causing hypoxia Add IV ceftazidime - Acute hypoxic respiratory failure secondary to pneumonia Supplemental oxygen. Consult pulmonary. - Acute delirium with metabolic encephalopathy from underlying sepsis:: Not improving - Diabetes mellitus type 2, regular insulin and oral hypoglycemic Hold oral hypoglycemic. Lantus to 16 units as patient is NPO.. Accu-Cheks with sliding scale. - Hypernatremia, secondary to free water deficit. Getting IV fluids. Increase D5W to 125 cc an hour. Given his age have to be careful with amount of fluid. - Advanced cognitive impairment from Alzheimer's dementia - Acute dysphagia.-From delirium. Prior to admission patient's tolerating a diet. Currently NPO. Speech therapy is following. - BPH Flomax 0.4 mg a day - Right eye blindness - GERD Prilosec 20 mg nightly - Hypothyroid Synthroid IV every 48 hours - Hyperlipidemia Lipitor 10 mg nightly - PAD Aspirin - No code Patient not doing well. Prognosis guarded. Spoke to the daughter on the phone. IV ceftazidime added. Labs Past Medical History Past Medical History: CVA/TIA, Diabetes Mellitus, Eye Disorder, Hyperlipidemia, Hypertension, Prostate Disorder, Thyroid Disorder, Vascular Disorder Additional Past Medical History / Comment(s): CVA with R eye blindness, bilateral glaucoma, past HTN but then running low blood pressures and taken off rx, epistaxis, NIDDM type II, BPH, sinus problems, hypothyroid, PVD/L leg. History of Any Multi-Drug Resistant Organisms: None Reported Past Surgical History: Appendectomy, Cholecystectomy Additional Past Surgical History / Comment(s): Colonoscopy Past Anesthesia/Blood Transfusion Reactions: No Reported Reaction Past Psychological History: No Psychological Hx Reported Smoking Status: Never smoker Past Alcohol Use History: Unable to Obtain Past Drug Use History: Unable to Obtain
[2025-01-16 20:48] LABS: HCT 43.1 % (39.6-50.0); MCHC 30.2 g/dL (32.0-37.0); Mean Platelet Volume 10.5 fL (9.5-12.2); RBC 4.49 10*6/uL (4.40-5.60); RDW 17.2 % (11.5-14.5)
[2025-01-16 21:04] LABS: ALT 35 U/L (4-49); African American GFR (CKD) 58 (>60 ml/min/1.73 sqM); Albumin 2.4 g/dL (3.5-5.0); Albumin/Globulin Ratio 0.6; Anion Gap 12 mmol/L; Blood Urea Nitrogen 33 mg/dL (9-20); Calcium 8.1 mg/dL (8.4-10.2); Carbon Dioxide 22 mmol/L (22-30); Chloride 124 mmol/L (98-107); Globulin 4.1 g/dL; Glucose 115 mg/dL (74-99); Non-African American GFR(CKD) 50 (>60 ml/min/1.73 sqM); Sodium 158 mmol/L (137-145); Total Bilirubin 2.2 mg/dL (0.2-1.3); Total Protein 6.5 g/dL (6.3-8.2)
[2025-01-16 21:05] LABS: AST 62 U/L (17-59); Alkaline Phosphatase 136 U/L (38-126); Platelet Count 70 10*3/uL (140-440); Potassium 2.9 mmol/L (3.5-5.1)
--- NOTE | 2025-01-16 21:24 | P.PN ---
Subjective Progress Note Date: 01/16/25 Principal diagnosis: Reason for follow-up is UTI and bacteremia Patient is a 89-year-old male with a past medical history significant for CVA/TIA, Diabetes Mellitus, Eye Disorder, Hyperlipidemia, Hypertension, Prostate Disorder, Thyroid Disorder, Vascular Disorder patient has been brought into the hospital for evaluation of mental status changes, patient did have fev er elevated white count positive UA concerning for symptomatic UTI subsequently blood cultures came back positive with MRSA. On today's evaluation that is 01/16/2025, patient did spike a fever this morning of 101.3 F the patient also have some difficulty breathing and some gurgling sound was noticed with no clear aspiration reported by the nursing staff no vomiting or diarrhea. Patient white count 6.30, creatinine is 1.28 Objective - Vital Signs Vital signs: Vital Signs Temp 100.8 F H 01/16/25 10:56 Pulse 108 H 01/16/25 08:20 Resp 21 01/16/25 08:20 BP 136/74 01/16/25 08:02 Pulse Ox 92 L 01/16/25 08:02 FiO2 21 01/12/25 15:22 Intake & Output 01/15/25 01/16/25 01/16/25 18:59 06:59 18:59 Output Total 1350 850 Balance -1350 -850 Weight 71 kg Output: Urine 1350 850 Other: Voiding Method External Catheter External Catheter External Catheter - Exam GENERAL DESCRIPTION: An elderly male lying in bed in no distress RESPIRATORY SYSTEM: Unlabored breathing , decreased breath sounds at bases HEART: S1 S2 regular rate and rhythm , ABDOMEN: Soft , no tenderness EXTREMITIES: No edema feet - Labs CBC & Chem 7: 01/16/25 20:25 01/16/25 20:25 Labs: Abnormal Lab Results - Last 24 Hours (Table) 01/15/25 01/15/25 01/16/25 Range/Units 17:00 21:26 06:27 POC Glucose (mg/dL) 114 H 161 H 178 H (70-110) mg/dL Microbiology - Last 24 Hours (Table) 01/13/25 05:31 Blood Culture Gram Stain - Preliminary Blood Blood Culture - Preliminary Presumptive MRSA Assessment and Plan (1) Sepsis Current Visit: Yes Status: Acute Code(s): A41.9 - SEPSIS, UNSPECIFIED ORGANISM SNOMED Code(s): 39800666 (2) UTI (urinary tract infection) Current Visit: Yes Status: Acute Code(s): N39.0 - URINARY TRACT INFECTION, SITE NOT SPECIFIED SNOMED Code(s): 46311753 (3) Leukocytosis Current Visit: Yes Status: Acute Code(s): D72.829 - ELEVATED WHITE BLOOD CELL COUNT, UNSPECIFIED SNOMED Code(s): 352929377 (4) MRSA bacteremia Current Visit: Yes Status: Acute Code(s): R78.81 - BACTEREMIA; B95.62 - METHICILLIN RESIS STAPH INFCT CAUSING DISEASES CLASSD ELSWHR SNOMED Code(s): 04942126997271117 Plan: 1patient presented to hospital with sepsis in this patient who did have a fever tachycardia hypotension source likely urinary however underlying abdominal source not entirely excluded keeping in mind he did have elevated liver enzymes and likely will need to cover for enteric gram-negative pathogen 2-patient did have multiple comorbidities including diabetes prostate disorder hypertension and hyperlipidemia complicating his overall clinical picture 3- ultrasound of the abdomen with no evidence of any hepatobiliary disease or evidence of any hydronephrosis 4-patient with MRSA bacteremia source is likely urinary blood culture repeat from 01/13/2025 also came back positive concerning for possible deep infection waiting for the echocardiogram 5patient with a new fever worsening respiratory status question of aspiration versus COVID we will check chest x-ray influenza RSV and COVID testing continue vancomycin Dictation was produced using [employer] dictation software. please excuse any grammatical, word or spelling errors. Time with Patient: Greater than 30
[2025-01-16 21:43] LABS: Glucose,Whole Blood 132 mg/dL (70-110)
[2025-01-17] MEDS ORDERED: Potassium Replacement Protocol 1 EACH MISC MISCELLANE PRN ×2 (04:00→04:23)
[2025-01-17 04:02] LABS: HCT 37.8 % (39.6-50.0); HGB 11.9 g/dL (13.0-17.0); MCH 28.5 pg (27.0-32.0); MCHC 31.5 g/dL (32.0-37.0); MCV 90.4 fL (80.0-97.0); Mean Platelet Volume 10.2 fL (9.5-12.2); RBC 4.18 10*6/uL (4.40-5.60); RDW 17.2 % (11.5-14.5); WBC 9.85 10*3/uL (4.50-10.00)
--- NOTE | 2025-01-17 04:05 | P.CNPUL ---
History of Present Illness Consult date: 01/17/25 Requesting physician: Tito Paige Reason for consult: dyspnea Chief complaint: Altered mental status History of present illness: A pulmonary consult was placed yesterday, 01/16/2025, for increased work of breathing and hypoxia. Patient is an 89-year-old male with past medical history significant for diabetes mellitus, hypertension, hyperlipidemia, CVA/TIA, among other things. He is a group home resident, resides at [facility]. Originally brought in by EMS on 01/11/2025 for altered mental status, high fevers, and findings concerning for UTI. Urine culture from 01/10/2025 positive for MRSA. Infectious disease has been managing his antibiotics and the patient is currently on a combination of vancomycin and Fortaz. Blood cultures from 01/11/2025 and again on 01/13/2025 both positive for MRSA bacteremia. Echocardiogram is pending. Most recent CBC from yesterday including a WBC count of 6.3, hemoglobin 13, hematocrit 43, platelets 70,000. Previous viral screen negative for influenza A/B, RSV, COVID. Most recent chest x-ray showing diffuse multifocal interstitial and patchy airspace opacities concerning for possible patchy pulmonary edema versus infectious process. Most recent available echocardiogram from 2021 estimating a preserved left ventricular systolic function of 55 to 60%. No significant valvular abnormalities were reported. A rapid response was called yesterday afternoon at approximately 1530. Patient was noted to have increased work of breathing and hypoxia. He was given a one- time dose of 40 mg IV push Lasix. Patient currently being evaluated on the general medical floor, he is on 10 L high flow nasal cannula. SpO2 reading ranging from 90 to 92%. He is obtunded, weak cough, with poor airway clearance. Concern for possible aspiration. Previously failed swallow evaluation. Continues to be intermittently febrile, with a Tmax of 102.6 F. Infectious disease managing antibiotics. He carries a DO NOT RESUSCITATE/DO NOT INTUBATE status. Review of Systems ROS unobtainable: due to mental status Past Medical History Past Medical History: CVA/TIA, Diabetes Mellitus, Eye Disorder, Hyperlipidemia, Hypertension, Prostate Disorder, Thyroid Disorder, Vascular Disorder Additional Past Medical History / Comment(s): CVA with R eye blindness, bilateral glaucoma, past HTN but then running low blood pressures and taken off rx, epistaxis, NIDDM type II, BPH, sinus problems, hypothyroid, PVD/L leg. History of Any Multi-Drug Resistant Organisms: MRSA Date of last positivie culture/infection: 01/11/25 MDRO Source:: blood, urine Past Surgical History: Appendectomy, Cholecystectomy Additional Past Surgical History / Comment(s): Colonoscopy Past Anesthesia/Blood Transfusion Reactions: No Reported Reaction Past Psychological History: No Psychological Hx Reported Additional Psychological History / Comment(s): Pt resides at [facility]. His spouse is currently at [facility]. He uses a walker to ambulate. He needs assistance with showering. He goes to the dining room for meals, He manages his own medications. Smoking Status: Never smoker Past Alcohol Use History: Unable to Obtain Past Drug Use History: Unable to Obtain - Past Family History Father Family Medical History: Myocardial Infarction ([place]) Additional Family Medical History / Comment(s): Father from a [place] at the age of 50 yrs. Mother Family Medical History: Diabetes Mellitus, Liver Disease Additional Family Medical History / Comment(s): Hepatitis. Medications and Allergies Home Medications Medication Instructions Recorded Confirmed Type Atorvastatin [Lipitor] 10 mg PO HS 11/17/21 01/11/25 History Brimonidine Tartrate/Timolol 1 drop BOTH EYES BID 11/17/21 01/11/25 History [Combigan 0.2%-0.5% Eye Drops] Latanoprost [Xalatan 0.005%] 1 drop BOTH EYES HS 11/17/21 01/11/25 History Levothyroxine Sodium [Synthroid] 50 mcg PO DAILY 11/17/21 01/11/25 History Multivitamins, Thera [Multivitamin 1 tab PO DAILY 11/17/21 01/11/25 History (formulary)] Tamsulosin [Flomax] 0.4 mg PO DAILY 11/17/21 01/11/25 History Vit C/E/Zn/Coppr/Lutein/Zeaxan 1 cap PO DAILY 11/17/21 01/11/25 History [Preservision Areds 2 Softgel] metFORMIN HCL [Glucophage] 1,000 mg PO BID 11/17/21 01/11/25 History Acetaminophen [Tylenol 8 Hour] 650 mg PO Q6H PRN 01/11/25 01/11/25 History Aspirin 81 mg PO DAILY 01/11/25 01/11/25 History Bimatoprost [Lumigan 0.01% Ophth 1 drop BOTH EYES BID 01/11/25 01/11/25 History Soln] Brinzolamide [Azopt 1% Ophth Susp] 1 drop LEFT EYE BID 01/11/25 01/11/25 History Carboxymethylcellulose Sodium 1 drop BOTH EYES BID 01/11/25 01/11/25 History [Refresh Tears] Cholecalciferol [Vitamin D3 (25 50 mcg PO DAILY 01/11/25 01/11/25 History Mcg = 1000 Iu)] Empagliflozin [Jardiance] 25 mg PO DAILY 01/11/25 01/11/25 History Ferrous Sulfate [Iron (65 MG 325 mg PO DAILY 01/11/25 01/11/25 History Elemental)] Glimepiride [Amaryl] 1 mg PO DAILY 01/11/25 01/11/25 History Glimepiride [Amaryl] 2 mg PO DAILY 01/11/25 01/11/25 History Icy Hot External Liquid 16% 1 applic TOPICAL BID 01/11/25 01/11/25 History Insulin Glargine,Hum.rec.anlog 36 units SQ DAILY 01/11/25 01/11/25 History [Lantus Solostar Pen] Midodrine [ProAmatine] 5 mg PO TID 01/11/25 01/11/25 History Omeprazole 20 mg PO HS 01/11/25 01/11/25 History Allergies Allergy/AdvReac Type Severity Reaction Status Date / Time No Known Allergies Allergy Verified 01/11/25 09:40 Physical Exam Vitals: Vital Signs Temp Pulse Resp BP Pulse Ox 01/17/25 01:56 93 L 01/16/25 21:40 104 H 01/16/25 21:29 23 96/56 100 01/16/25 20:49 100 01/16/25 19:38 93 L 01/16/25 19:36 100.4 F H 101 H 17 92/46 89 L 01/16/25 16:51 100.8 F H 103 H 20 95/53 92 L 01/16/25 14:05 87 L 01/16/25 13:42 102.6 F H 109 H 20 116/53 84 L 01/16/25 10:56 100.8 F H 01/16/25 08:20 108 H 21 01/16/25 08:02 101.3 F H 108 H 21 136/74 92 L Intake and Output 01/16/25 01/16/25 01/17/25 14:59 22:59 06:59 Output Total 275 Balance -275 Output: Urine 275 Other: Voiding Method External Catheter External Catheter GENERAL EXAM: Obtunded, 89-year-old male, withdraws to painful stimuli, does not readily follow commands, weak cough with secretions pooling in the oropharynx. HEAD: Normocephalic and atraumatic EYES: Normal reaction of pupils, equal size. NOSE: Clear with pink turbinates. THROAT: No erythema or exudates. NECK: No masses, no JVD. CHEST: No chest wall deformity. LUNGS: Equal air entry with diffuse coarse rhonchi heard bilaterally throughout. On 10 L high flow nasal cannula CVS: S1 and S2 normal with no audible murmur, regular rhythm. No extra heart sounds ABDOMEN: No hepatosplenomegaly, active bowel sounds, no guarding or rigidity. SPINE: No scoliosis or deformity SKIN: No rashes CENTRAL NERVOUS SYSTEM: Obtunded, does not really follow commands, withdraws to painful stimuli in all 4 extremities EXTREMITIES: There is no peripheral edema, clubbing, or cyanosis. Peripheral pulses are intact. Results - Laboratory Findings CBC and BMP: 01/16/25 20:25 01/16/25 20:25 PT/INR, D-dimer PT 16.0 sec (10.0-12.5) H 01/11/25 07:47 INR 1.5 (<1.2) H 01/11/25 07:47 Abnormal lab findings: Abnormal Labs 01/11/25 01/11/25 01/11/25 07:46 07:47 07:47 WBC 11.17 H RBC 4.29 L Hgb 12.8 L Hct 37.3 L MCHC RDW Plt Count 100 L Immature Gran # 0.15 H Neutrophils # 9.96 H Neutrophils # (Manual) Lymphocytes # 0.52 L Monocytes # 0.17 L Eosinophils # 0.02 L PT 16.0 H INR 1.5 H Sodium Potassium Chloride Carbon Dioxide BUN Creatinine Glucose POC Glucose (mg/dL) 134 H Plasma Lactic Acid Augustus Calcium Total Bilirubin AST ALT Alkaline Phosphatase Total Protein Albumin Procalcitonin Urine Protein Urine Glucose (UA) Urine Ketones Urine Blood Ur Leukocyte Esterase Urine RBC Urine WBC Urine Bacteria Urine Mucus 01/11/25 01/11/25 01/11/25 07:47 07:47 07:49 WBC RBC Hgb Hct MCHC RDW Plt Count Immature Gran # Neutrophils # Neutrophils # (Manual) Lymphocytes # Monocytes # Eosinophils # PT INR Sodium Potassium Chloride Carbon Dioxide 17 L BUN 48 H Creatinine 1.38 H Glucose 141 H POC Glucose (mg/dL) Plasma Lactic Acid Augustus 3.1 H* Calcium Total Bilirubin 2.2 H AST 107 H ALT 69 H Alkaline Phosphatase 210 H Total Protein 8.3 H Albumin Procalcitonin Urine Protein 1+ H Urine Glucose (UA) 4+ H Urine Ketones 1+ H Urine Blood Moderate H Ur Leukocyte Esterase Small H Urine RBC 21 H Urine WBC 60 H Urine Bacteria Rare H Urine Mucus Rare H 01/11/25 01/11/25 01/11/25 11:11 11:33 14:21 WBC RBC Hgb Hct MCHC RDW Plt Count Immature Gran # Neutrophils # Neutrophils # (Manual) Lymphocytes # Monocytes # Eosinophils # PT INR Sodium Potassium Chloride Carbon Dioxide BUN Creatinine Glucose POC Glucose (mg/dL) 125 H Plasma Lactic Acid Augustus 2.7 H* 2.7 H* Calcium Total Bilirubin AST ALT Alkaline Phosphatase Total Protein Albumin Procalcitonin Urine Protein Urine Glucose (UA) Urine Ketones Urine Blood Ur Leukocyte Esterase Urine RBC Urine WBC Urine Bacteria Urine Mucus 01/11/25 01/11/25 01/11/25 17:09 17:20 20:19 WBC RBC Hgb Hct MCHC RDW Plt Count Immature Gran # Neutrophils # Neutrophils # (Manual) Lymphocytes # Monocytes # Eosinophils # PT INR Sodium Potassium Chloride Carbon Dioxide BUN Creatinine Glucose POC Glucose (mg/dL) 157 H Plasma Lactic Acid Augustus 3.5 H* 2.8 H* Calcium Total Bilirubin AST ALT Alkaline Phosphatase Total Protein Albumin Procalcitonin Urine Protein Urine Glucose (UA) Urine Ketones Urine Blood Ur Leukocyte Esterase Urine RBC Urine WBC Urine Bacteria Urine Mucus 01/11/25 01/12/25 01/12/25 21:15 00:07 04:29 WBC RBC Hgb Hct MCHC RDW Plt Count Immature Gran # Neutrophils # Neutrophils # (Manual) Lymphocytes # Monocytes # Eosinophils # PT INR Sodium Potassium Chloride Carbon Dioxide BUN Creatinine 1.33 H Glucose POC Glucose (mg/dL) 119 H Plasma Lactic Acid Augustus 2.8 H* Calcium Total Bilirubin AST ALT Alkaline Phosphatase Total Protein Albumin Procalcitonin Urine Protein Urine Glucose (UA) Urine Ketones Urine Blood Ur Leukocyte Esterase Urine RBC Urine WBC Urine Bacteria Urine Mucus 01/12/25 01/12/25 01/13/25 06:04 11:24 05:31 WBC 10.64 H RBC Hgb 12.9 L Hct 39.1 L MCHC RDW Plt Count 73 L Immature Gran # 0.07 H Neutrophils # Neutrophils # (Manual) 8.83 H Lymphocytes # Monocytes # Eosinophils # PT INR Sodium Potassium Chloride Carbon Dioxide BUN Creatinine Glucose POC Glucose (mg/dL) 127 H 114 H Plasma Lactic Acid Augustus Calcium Total Bilirubin AST ALT Alkaline Phosphatase Total Protein Albumin Procalcitonin Urine Protein Urine Glucose (UA) Urine Ketones Urine Blood Ur Leukocyte Esterase Urine RBC Urine WBC Urine Bacteria Urine Mucus 01/13/25 01/13/25 01/13/25 05:31 16:29 20:02 WBC RBC Hgb Hct MCHC RDW Plt Count Immature Gran # Neutrophils # Neutrophils # (Manual) Lymphocytes # Monocytes # Eosinophils # PT INR Sodium 149 H Potassium 3.4 L Chloride 116 H Carbon Dioxide 18 L BUN 40 H Creatinine Glucose POC Glucose (mg/dL) 136 H 195 H Plasma Lactic Acid Augustus Calcium Total Bilirubin AST ALT Alkaline Phosphatase Total Protein Albumin Procalcitonin Urine Protein Urine Glucose (UA) Urine Ketones Urine Blood Ur Leukocyte Esterase Urine RBC Urine WBC Urine Bacteria Urine Mucus 01/14/25 01/14/25 01/15/25 06:17 23:01 04:36 WBC RBC Hgb Hct MCHC RDW Plt Count Immature Gran # Neutrophils # Neutrophils # (Manual) Lymphocytes # Monocytes # Eosinophils # PT INR Sodium 155 H Potassium 3.1 L Chloride 122 H Carbon Dioxide 20 L BUN 31 H Creatinine Glucose 194 H POC Glucose (mg/dL) 198 H 166 H Plasma Lactic Acid Augustus Calcium Total Bilirubin AST ALT Alkaline Phosphatase Total Protein Albumin Procalcitonin Urine Protein Urine Glucose (UA) Urine Ketones Urine Blood Ur Leukocyte Esterase Urine RBC Urine WBC Urine Bacteria Urine Mucus 01/15/25 01/15/25 01/15/25 04:36 06:08 11:43 WBC RBC Hgb Hct MCHC RDW 17.0 H Plt Count 63 L Immature Gran # 0.13 H Neutrophils # Neutrophils # (Manual) Lymphocytes # Monocytes # Eosinophils # 0.00 L PT INR Sodium Potassium Chloride Carbon Dioxide BUN Creatinine Glucose POC Glucose (mg/dL) 211 H 150 H Plasma Lactic Acid Augustus Calcium Total Bilirubin AST ALT Alkaline Phosphatase Total Protein Albumin Procalcitonin Urine Protein Urine Glucose (UA) Urine Ketones Urine Blood Ur Leukocyte Esterase Urine RBC Urine WBC Urine Bacteria Urine Mucus 01/15/25 01/15/25 01/16/25 17:00 21:26 03:31 WBC RBC Hgb Hct MCHC RDW Plt Count Immature Gran # Neutrophils # Neutrophils # (Manual) Lymphocytes # Monocytes # Eosinophils # PT INR Sodium Potassium Chloride Carbon Dioxide BUN Creatinine Glucose POC Glucose (mg/dL) 114 H 161 H Plasma Lactic Acid Augustus Calcium Total Bilirubin AST ALT Alkaline Phosphatase Total Protein Albumin Procalcitonin 1.05 H Urine Protein Urine Glucose (UA) Urine Ketones Urine Blood Ur Leukocyte Esterase Urine RBC Urine WBC Urine Bacteria Urine Mucus 01/16/25 01/16/25 01/16/25 06:27 12:47 20:25 WBC RBC Hgb Hct MCHC 30.2 L RDW 17.2 H Plt Count 70 L Immature Gran # Neutrophils # Neutrophils # (Manual) Lymphocytes # Monocytes # Eosinophils # PT INR Sodium Potassium Chloride Carbon Dioxide BUN Creatinine Glucose POC Glucose (mg/dL) 178 H 63 L Plasma Lactic Acid Augustus Calcium Total Bilirubin AST ALT Alkaline Phosphatase Total Protein Albumin Procalcitonin Urine Protein Urine Glucose (UA) Urine Ketones Urine Blood Ur Leukocyte Esterase Urine RBC Urine WBC Urine Bacteria Urine Mucus 01/16/25 01/16/25 20:25 21:41 WBC RBC Hgb Hct MCHC RDW Plt Count Immature Gran # Neutrophils # Neutrophils # (Manual) Lymphocytes # Monocytes # Eosinophils # PT INR Sodium 158 H Potassium 2.9 L Chloride 124 H Carbon Dioxide BUN 33 H Creatinine 1.28 H Glucose 115 H POC Glucose (mg/dL) 132 H Plasma Lactic Acid Augustus Calcium 8.1 L Total Bilirubin 2.2 H AST 62 H ALT Alkaline Phosphatase 136 H Total Protein Albumin 2.4 L Procalcitonin Urine Protein Urine Glucose (UA) Urine Ketones Urine Blood Ur Leukocyte Esterase Urine RBC Urine WBC Urine Bacteria Urine Mucus - Diagnostic Findings Chest x-ray: image reviewed Assessment and Plan Assessment: Complicated urinary tract infection/urosepsis, isolated organism MRSA MRSA bacteremia Sepsis, secondary to above Diffuse multifocal patchy airspace opacities concerning for pneumonia, probable aspiration pneumonia Acute hypoxemic respiratory failure, on 10 L high flow nasal cannula, secondary to above Altered mental status, likely secondary to acute toxic metabolic encephalopathy/sepsis Thrombocytopenia Hyperchloremic hypernatremia, secondary to poor oral intake and free water deficit Hypokalemia, monitor and replace per protocol Acute kidney injury Diabetes mellitus History of hypothyroidism History of hypertension History of hyperlipidemia History of CVA/TIA History of BPH detention resident Plan: Continue supplemental oxygen to maintain oxygen saturation of 92% or greater Obtain arterial blood gas Failed previous swallow evaluation. Continue aspiration precautions. Repeat blood cultures continue to show MRSA bacteremia Transthoracic echocardiogram is pending Antibiotics are being directed by infectious disease specialist Patient carries a DO NOT RESUSCITATE/DO NOT INTUBATE status Follow-up discussions will be needed with family next of kin Overall prognosis is extremely poor and guarded I have personally seen and examined the patient, performed the documentation and the assessment and plan as written. Number of minutes spent on the visit:20 This dictation was produced using [employer] dictation software please excuse grammatical errors Time with Patient: Greater than 30
[2025-01-17 04:11] LABS: Platelet Count 83 10*3/uL (140-440)
[2025-01-17 04:15] LABS: African American GFR (CKD) 45 (>60 ml/min/1.73 sqM); Anion Gap 10 mmol/L; Blood Urea Nitrogen 39 mg/dL (9-20); Carbon Dioxide 23 mmol/L (22-30); Chloride 125 mmol/L (98-107); Glucose 142 mg/dL (74-99); Non-African American GFR(CKD) 39 (>60 ml/min/1.73 sqM); Sodium 158 mmol/L (137-145)
[2025-01-17 04:20] LABS: Potassium 2.6 mmol/L (3.5-5.1)
[2025-01-17 04:31] LABS: ABG Base Excess -1.3 mmol/L; ABG HCO3 23 mmol/L (21-25); ABG Oxygen Saturation 92.1 % (94-97); ABG PCO2 37 mmHg (35-45); ABG PO2 65 mmHg (83-108); ABG TCO2 24 mmol/L (19-24); Allen Test Performed? Yes
[2025-01-17 04:54] LABS: Band Neutrophils % 69 %; Lymphocytes # (M) 1.18 k/uL (1.0-4.8); Metamyelocytes # (M) 0.59 k/uL (0); Metamyelocytes % 6 %; Neutrophils # (M) 7.97 k/uL (1.3-7.7); Neutrophils % (M) 12 %; Nucleated Red Blood Cells 0 /100 WBC (0-0); Total Cells Counted 200
[2025-01-17] MEDS: POTASSIUM CHLORIDE 10 MEQ in WATER FOR INJECTION 1 100ML.BAG IVPB SCH (05:32)
[2025-01-17 06:50] LABS: Glucose,Whole Blood 152 mg/dL (70-110)
--- NOTE | 2025-01-17 09:55 | CA ---
Transthoracic Echo Report Name: Reginaldo Bynum Age: 89 Gender: M : 1935 Exam Date: 01/16/2025 14:11 Exam Location: [facility] Ht (in): 69 Wt (lb): 160 Ordering Physician: Hima Cristina MD Attending/Referring Phys: Medical Transcriber Belen Ha RDCS Procedure CPT: Indications: MRSA bacteremia ? Endocarditis Cardiac Hx: Technical Quality: Fair Contrast 1: Total Dose (mL): Contrast 2: Total Dose (mL): MEASUREMENTS (Male / Female) Normal Values 2D ECHO LV Diastolic Diameter PLAX 4.5 cm 4.2 - 5.9 / 3.9 - 5.3 cm LV Systolic Diameter PLAX 2.9 cm IVS Diastolic Thickness 0.9 cm 0.6 - 1.0 / 0.6 - 0.9 cm LVPW Diastolic Thickness 0.9 cm 0.6 - 1.0 / 0.6 - 0.9 cm LV Relative Wall Thickness 0.4 RV Internal Dim ED PLAX 2.8 cm LA Systolic Diameter LX 3.8 cm 3.0 - 4.0 / 2.7 - 3.8 cm LV Diastolic Volume MOD BP 56.1 cm??? 67 - 155 / 56 - 104 cm??? LV Systolic Volume MOD BP 13.7 cm??? 22 - 58 / 19 - 49 cm??? LV Ejection Fraction MOD BP 75.5 % >= 55 % LV Cardiac Index MOD BP 2405.6 cm???/min???m??? LV Diastolic Volume MOD 4C 51.2 cm??? LV Systolic Volume MOD 4C 13.7 cm??? LV Ejection Fraction MOD 4C 73.2 % LV Cardiac Index MOD 4C 2130.6 cm???/min???m??? LV Diastolic Length 4C 6.3 cm LV Systolic Length 4C 5.8 cm LV Diastolic Volume MOD 2C 51.9 cm??? LV Systolic Volume MOD 2C 8.4 cm??? LV Ejection Fraction MOD 2C 83.9 % LV Cardiac Index MOD 2C 2471.1 cm???/min???m??? LV Diastolic Length 2C 7.5 cm LV Systolic Length 2C 2.5 cm M-MODE Aortic Root Diameter MM 3.5 cm DOPPLER AV Peak Velocity 128.2 cm/s AV Peak Gradient 6.6 mmHg MV Peak Velocity 208.6 cm/s MV Peak Gradient 17.4 mmHg MV Mean Velocity 126.8 cm/s MV Mean Gradient 7.1 mmHg MV Velocity Time Integral 39.2 cm Mitral E Point Velocity 109.0 cm/s Mitral A Point Velocity 158.6 cm/s Mitral E to A Ratio 0.7 MV Deceleration Time 152.4 ms TR Peak Velocity 260.7 cm/s TR Peak Gradient 27.2 mmHg Right Ventricular Systolic Press 37.2 mmHg FINDINGS Left Ventricle Left ventricular ejection fraction is estimated at 60-65 %. Left ventricular cavity size normal. Left ventricular wall thickness normal. Normal left ventricular wall motion. Grade 1 diastolic dysfunction Right Ventricle Normal right ventricular size. Mild pulmonary hypertension. Right Atrium Right atrium not well visualized. Left Atrium Normal left atrial size. No left atrial thrombus or mass present. Mitral Valve Mild thickening/calcification of the anterior mitral valve leaflet. Mild thickening/calcification of the posterior mitral valve leaflet. Mild mitral annular calcification. Moderate gradient across MV. Can not r/o vegetation on the mitral valve. Aortic Valve Trileaflet aortic valve. Thickened aortic valve without stenosis. Tricuspid Valve Structurally normal tricuspid valve. Mild tricuspid regurgitation. Pulmonic Valve Pulmonic valve not well visualized. No pulmonic regurgitation. Pericardium No pericardial effusion. Aorta Normal size aortic root and proximal ascending aorta. CONCLUSIONS LVEF 60 to 65% No obvious regional wall motion abnormality Grade 1 diastolic dysfunction Normal RV size systolic function, RVSP estimated at 37 mmHg, Mild pulm hypertension Thickened mitral valve types. Chordal calcification. Possibility of vegetation cannot be ruled out. Thickened aortic valve without stenosis Mild tricuspid regurgitation Previewed by: Dr Sly Garcia (Electronically Signed) Final Date: 17 January 2025 09:54
[2025-01-17 11:18] LABS: Glucose,Whole Blood 175 mg/dL (70-110)
[2025-01-17 11:58] LABS: African American GFR (CKD) 44 (>60 ml/min/1.73 sqM); Non-African American GFR(CKD) 38 (>60 ml/min/1.73 sqM)
[2025-01-17] MEDS: VANCOMYCIN TROUGH DUE 1 EACH MISC MISCELLANE ONE (13:18)
--- NOTE | 2025-01-17 14:36 | P.PN ---
Subjective Progress Note Date: 01/17/25 Principal diagnosis: Reason for follow-up is UTI and bacteremia Patient is a 89-year-old male with a past medical history significant for CVA/TIA, Diabetes Mellitus, Eye Disorder, Hyperlipidemia, Hypertension, Prostate Disorder, Thyroid Disorder, Vascular Disorder patient has been brought into the hospital for evaluation of mental status changes, patient did have fev er elevated white count positive UA concerning for symptomatic UTI subsequently blood cultures came back positive with MRSA. On today's evaluation that is 01/17/2025, Patient did have improvement in his fever pattern and is afebrile this morning patient is lethargic unable to provide any history history requiring high flow nasal cannula oxygen currently on 10 L on the bed reported history no vomiting or diarrhea has been reported. Patient white count is 9.85 creatinine is 1.58 Vanco trough is 21.2 blood culture from 01/15/2025 came back positive as well Objective - Vital Signs Vital signs: Vital Signs Temp 97.4 F L 01/17/25 08:16 Pulse 90 01/17/25 08:16 Resp 20 01/17/25 08:16 BP 105/62 01/17/25 08:16 Pulse Ox 95 01/17/25 11:07 FiO2 21 01/12/25 15:22 Intake & Output 01/16/25 01/17/25 01/17/25 18:59 06:59 18:59 Output Total 275 350 Balance -275 -350 Output: Urine 275 350 Other: Voiding Method External Catheter External Catheter External Catheter # Bowel Movements 2 - Exam GENERAL DESCRIPTION: An elderly male lying in bed in no distress RESPIRATORY SYSTEM: Unlabored breathing , decreased breath sounds at bases HEART: S1 S2 regular rate and rhythm , ABDOMEN: Soft , no tenderness EXTREMITIES: No edema feet - Labs CBC & Chem 7: 01/17/25 03:43 01/17/25 10:57 Labs: Abnormal Lab Results - Last 24 Hours (Table) 01/16/25 01/16/25 01/16/25 Range/Units 03:31 12:47 20:25 RBC (4.40-5.60) 10*6/uL Hgb (13.0-17.0) g/dL Hct (39.6-50.0) % MCHC 30.2 L (32.0-37.0) g/dL RDW 17.2 H (11.5-14.5) % Plt Count 70 L (140-440) 10*3/uL Immature Gran # (0.00-0.04) 10*3/uL Neutrophils # (Manual) (1.3-7.7) k/uL Metamyelocytes # (Man) (0) k/uL ABG pO2 (83-108) mmHg ABG O2 Saturation (94-97) % Sodium (137-145) mmol/L Potassium (3.5-5.1) mmol/L Chloride (98-107) mmol/L BUN (9-20) mg/dL Creatinine (0.66-1.25) mg/dL Glucose (74-99) mg/dL POC Glucose (mg/dL) 63 L (70-110) mg/dL Calcium (8.4-10.2) mg/dL Total Bilirubin (0.2-1.3) mg/dL AST (17-59) U/L Alkaline Phosphatase (38-126) U/L Albumin (3.5-5.0) g/dL Procalcitonin 1.05 H (0.02-0.50) ng/mL 01/16/25 01/16/25 01/17/25 Range/Units 20:25 21:41 03:43 RBC 4.18 L (4.40-5.60) 10*6/uL Hgb 11.9 L (13.0-17.0) g/dL Hct 37.8 L (39.6-50.0) % MCHC 31.5 L (32.0-37.0) g/dL RDW 17.2 H (11.5-14.5) % Plt Count 83 L (140-440) 10*3/uL Immature Gran # 0.27 H (0.00-0.04) 10*3/uL Neutrophils # (Manual) 7.97 H (1.3-7.7) k/uL Metamyelocytes # (Man) 0.59 H (0) k/uL ABG pO2 (83-108) mmHg ABG O2 Saturation (94-97) % Sodium 158 H (137-145) mmol/L Potassium 2.9 L (3.5-5.1) mmol/L Chloride 124 H (98-107) mmol/L BUN 33 H (9-20) mg/dL Creatinine 1.28 H (0.66-1.25) mg/dL Glucose 115 H (74-99) mg/dL POC Glucose (mg/dL) 132 H (70-110) mg/dL Calcium 8.1 L (8.4-10.2) mg/dL Total Bilirubin 2.2 H (0.2-1.3) mg/dL AST 62 H (17-59) U/L Alkaline Phosphatase 136 H (38-126) U/L Albumin 2.4 L (3.5-5.0) g/dL Procalcitonin (0.02-0.50) ng/mL 01/17/25 01/17/25 01/17/25 Range/Units 03:43 04:22 06:48 RBC (4.40-5.60) 10*6/uL Hgb (13.0-17.0) g/dL Hct (39.6-50.0) % MCHC (32.0-37.0) g/dL RDW (11.5-14.5) % Plt Count (140-440) 10*3/uL Immature Gran # (0.00-0.04) 10*3/uL Neutrophils # (Manual) (1.3-7.7) k/uL Metamyelocytes # (Man) (0) k/uL ABG pO2 65 L (83-108) mmHg ABG O2 Saturation 92.1 L (94-97) % Sodium 158 H (137-145) mmol/L Potassium 2.6 L* (3.5-5.1) mmol/L Chloride 125 H (98-107) mmol/L BUN 39 H (9-20) mg/dL Creatinine 1.58 H (0.66-1.25) mg/dL Glucose 142 H (74-99) mg/dL POC Glucose (mg/dL) 152 H (70-110) mg/dL Calcium 8.0 L (8.4-10.2) mg/dL Total Bilirubin (0.2-1.3) mg/dL AST (17-59) U/L Alkaline Phosphatase (38-126) U/L Albumin (3.5-5.0) g/dL Procalcitonin (0.02-0.50) ng/mL 01/17/25 01/17/25 Range/Units 10:57 11:16 RBC (4.40-5.60) 10*6/uL Hgb (13.0-17.0) g/dL Hct (39.6-50.0) % MCHC (32.0-37.0) g/dL RDW (11.5-14.5) % Plt Count (140-440) 10*3/uL Immature Gran # (0.00-0.04) 10*3/uL Neutrophils # (Manual) (1.3-7.7) k/uL Metamyelocytes # (Man) (0) k/uL ABG pO2 (83-108) mmHg ABG O2 Saturation (94-97) % Sodium (137-145) mmol/L Potassium (3.5-5.1) mmol/L Chloride (98-107) mmol/L BUN (9-20) mg/dL Creatinine 1.60 H (0.66-1.25) mg/dL Glucose (74-99) mg/dL POC Glucose (mg/dL) 175 H (70-110) mg/dL Calcium (8.4-10.2) mg/dL Total Bilirubin (0.2-1.3) mg/dL AST (17-59) U/L Alkaline Phosphatase (38-126) U/L Albumin (3.5-5.0) g/dL Procalcitonin (0.02-0.50) ng/mL Microbiology - Last 24 Hours (Table) 01/15/25 21:17 Blood Culture Gram Stain - Preliminary Blood Blood Culture - Preliminary Molecular ID 01/13/25 05:31 Blood Culture Gram Stain - Final Blood Blood Culture - Final Methicillin resist S. aureus Assessment and Plan (1) Sepsis Current Visit: Yes Status: Acute Code(s): A41.9 - SEPSIS, UNSPECIFIED ORGANISM SNOMED Code(s): 08490383 (2) UTI (urinary tract infection) Current Visit: Yes Status: Acute Code(s): N39.0 - URINARY TRACT INFECTION, SITE NOT SPECIFIED SNOMED Code(s): 41335407 (3) Leukocytosis Current Visit: Yes Status: Acute Code(s): D72.829 - ELEVATED WHITE BLOOD CELL COUNT, UNSPECIFIED SNOMED Code(s): 870518036 (4) MRSA bacteremia Current Visit: Yes Status: Acute Code(s): R78.81 - BACTEREMIA; B95.62 - METHICILLIN RESIS STAPH INFCT CAUSING DISEASES CLASSD ELSWHR SNOMED Code(s): 66565267912148565 Plan: 1patient presented to hospital with sepsis in this patient who did have a fever tachycardia hypotension source likely urinary however underlying abdominal source not entirely excluded keeping in mind he did have elevated liver enzymes and likely will need to cover for enteric gram-negative pathogen 2-patient did have multiple comorbidities including diabetes prostate disorder hypertension and hyperlipidemia complicating his overall clinical picture 3- ultrasound of the abdomen with no evidence of any hepatobiliary disease or ev idence of any hydronephrosis 4-patient with MRSA bacteremia source with initial concern for possible urinary source however with persistent bacteremia high clinical suspicious for endocarditis patient is covered with her vancomycin level is therapeutic prognosis remains to be guarded will monitor clinical course closely Dictation was produced using [employer] dictation software. please excuse any gra mmatical, word or spelling errors. Time with Patient: Less than 30
[2025-01-17 16:41] LABS: Glucose,Whole Blood 311 mg/dL (70-110)
[2025-01-17 20:12] LABS: Glucose,Whole Blood 249 mg/dL (70-110)
[2025-01-17] MEDS: VANCOMYCIN 1,500 MG in SODIUM CHLORIDE 0.9% 500 ML 500 ML IVPB SCH (20:24)
--- NOTE | 2025-01-17 20:26 | P.PN ---
Progress Note - Text Progress Note Date: 01/17/25 Chief Complaint: Altered mentation This is a 89-year-old patient, brought into the ER from [facility]. Patient is delirious in the ER. Unable to give a history. Per the EMS report: Nurse stated patient been having fevers for last couple of days. Was being given Tylenol. Previous night patient was tested positive for UTI. In daycare having more altered mentation. Has underlying dementia. Patient is attending Dr. Mandujano order the patient to be transferred to the hospital. Patient may speak a word. It was morning. Patient here in the ER his morning. Awake. Attempts to talk but barely able to do so. Had a temperature 102.4 here. January 12: Still a bit delirious. But better than yesterday. Attempting to talk a bit more. Blood cultures x 2 sets coming back positive for MRSA. Presumptive. IV vancomycin. Last fever spike was last night of 101.1. Per ID Zosyn discontinued. January 13: Patient likely answering questions. Little bit confused. Mentation not fluctuating. Spoke to Racquel from speech therapist. This morning he did not really follow commands. She will try again this afternoon. No further fever. Getting IV vancomycin for MRSA. Will change IV fluids to D5W. Because patient is NPO. Cut back Lantus to 22 units. January 14: Family is at bedside. Because of mentation patient remains NPO. Diet. Will attempt to speak. Getting vancomycin. IV fluids D5.45. Will reduce dose of Lantus January 15: Patient attempted to speak a bit better today. Patient's son and [id number] from [place] visiting. Earlier today sodium 155. Increase IV fluids to 125 cc an hour.. NPO. Spoke to the son about prognosis being guarded given his age and comorbidities. Repeat blood culture from January [address] scan abdomen pelvis ordered with IV contrast. January 16: Starting a bit congested in the chest. Probable pneumonia. Will add IV ceftazidime. Patient still spiking fevers. Spoke to patient daughter Spring over the phone, she understands prognosis guarded. No artificial feeding. . Patient's oxygen requirement has gone up. Requiring high flow oxygen. Pulmonary is being consulted. January 17: Patient remains encephalopathic. On IV vancomycin IV ceftazidime. Getting IV fluids. Still hypernatremic. Decreased urine output. Not able to communicate. Unable to feed. Nurse did reach out to patient daughter. She understands patient's prognosis was poor. Will watch overnight. If no signif icant change in clinical status symptoms improvement will then had towards comfort care. Active Medications Acetaminophen (Acetaminophen Tab 325 Mg Tab) 650 mg PO Q6HR PRN PRN Reason: Mild Pain or Fever > 100.5 Last Admin: 01/11/25 20:16 Dose: 650 mg Artificial Tears (Artificial Tears-Hypromellose Drops 15 Ml Btl) 1 drops BOTH EYES BID [facility] Last Admin: 01/17/25 08:20 Dose: Not Given Aspirin (Aspirin 81 Mg) 81 mg PO DAILY [facility] Last Admin: 01/17/25 08:20 Dose: Not Given Atorvastatin Calcium (Atorvastatin 10 Mg Tab) 10 mg PO HS [facility] Last Admin: 01/17/25 20:12 Dose: Not Given Brimonidine Tartrate (Brimonidine Tartrate 0.2% Drops 5 Ml Btl) 1 drops BOTH EYES BID [facility] Last Admin: 01/17/25 08:20 Dose: Not Given Cholecalciferol (Cholecalciferol 25 Mcg (1000 Iu) Tablet) 50 mcg PO DAILY [facility] Last Admin: 01/17/25 08:21 Dose: Not Given Dapagliflozin (Dapagliflozin Propanediol 10 Mg Tablet) 10 mg PO DAILY [facility] Last Admin: 01/17/25 08:21 Dose: Not Given Dextrose/Water (Dextrose 50% Syringe 50 Ml) 25 ml IVP PER PROTOCOL PRN; Protocol PRN Reason: Hypoglycemia Last Admin: 01/16/25 13:06 Dose: 25 ml Dextrose/Water (Dextrose 50% Syringe 50 Ml) 50 ml IVP PER PROTOCOL PRN; Protocol PRN Reason: Hypoglycemia Enoxaparin Sodium (Enoxaparin 40 Mg/0.4 Ml Syringe) 40 mg SQ DAILY [facility] Last Admin: 01/17/25 08:11 Dose: 40 mg Ferrous Sulfate (Ferrous Sulfate 325 Mg Tab) 325 mg PO DAILY [facility] Last Admin: 01/17/25 08:21 Dose: Not Given Dextrose/Sodium Chloride (Dextrose 5%-1/2ns Iv Soln) 1,000 mls @ 125 mls/hr IV .Q8H [facility] Last Admin: 01/17/25 12:36 Dose: 125 mls/hr Ceftazidime 1 gm/ Sodium (Chloride) 50 mls @ 12.5 mls/hr IVPB Q8HR [facility]; Protocol Last Admin: 01/17/25 17:08 Dose: 12.5 mls/hr Vancomycin HCl 1,500 mg/ (Sodium Chloride) 500 mls @ 167 mls/hr IVPB Q24H [facility] Insulin Glargine (Insulin Glargine (Lantus) 100 Unit/Ml Syr) 16 unit SQ DAILY@0700 [facility] Last Admin: 01/17/25 07:54 Dose: Not Given Insulin Human Lispro (Insulin Lispro (Humalog) 100 Unit/Ml 10 Ml Vl) 0 unit SQ ACHS [facility]; Protocol Last Admin: 01/17/25 17:08 Dose: 4 unit Latanoprost (Latanoprost 0.005% Ophth Drops 2.5 Ml Btl) 1 drops BOTH EYES HS [facility] Last Admin: 01/16/25 21:35 Dose: 1 drops Levothyroxine Sodium (Levothyroxine Ivp 100 Mcg/5 Ml Vial) 50 mcg IV Q48H [facility] Last Admin: 01/15/25 21:53 Dose: 50 mcg Midodrine (Midodrine 5 Mg Tab) 5 mg PO TID [facility] Last Admin: 01/17/25 16:33 Dose: Not Given Miscellaneous Information (Potassium Replacement Protocol 1 Each Misc) 1 each MISCELLANE DAILY PRN; Protocol PRN Reason: Per Protocol Multivitamins (Multivitamins, Thera 1 Each Tab) 1 each PO DAILY [facility] Last Admin: 01/17/25 08:21 Dose: Not Given Multivitamins/Minerals (Vit A,C & A-Bstyag-Hbmtwvru 1 Each Tab) 1 each PO DAILY [facility] Last Admin: 01/17/25 08:21 Dose: Not Given Naloxone HCl (Naloxone 0.4 Mg/Ml 1 Ml Vial) 0.2 mg IV Q2M PRN PRN Reason: Opioid Reversal Non-Formulary Medication (Brinzolamide [Azopt 1% Ophth Susp]) 1 drop LEFT EYE BID [facility] Last Admin: 01/17/25 08:21 Dose: Not Given Ondansetron HCl (Ondansetron 4 Mg/2 Ml Vial) 4 mg IVP Q8HR PRN PRN Reason: Nausea And Vomiting Tamsulosin HCl (Tamsulosin 0.4 Mg Cap.Er.24h) 0.4 mg PO DAILY [facility] Last Admin: 01/17/25 08:21 Dose: Not Given Timolol Maleate (Timolol 0.5% Ophth Drops 5 Ml Btl) 1 drops BOTH EYES BID [facility] Last Admin: 01/17/25 08:21 Dose: Not Given Social history: Patient came in from [facility]. Does use a walker. Non-smoker. Physical examination: VITAL SIGNS: 97.4, 84, 22, 109 x 65, 93% on 10 L GENERAL: Laying in bed. Audibly congested. Mouth breathing EYES: Right eye cloudy. Arcus senilis left eye, HEENT: [External appearance of nose and ears normal, oral cavity dry mucous mem brane. NECK: JVD not raised; masses not palpable. HEART: First and second heart sounds are normal; no edema. LUNGS: Respiratory rate increased, expiratory coarse crackles n. Mouth breathing ABDOMEN: Soft, nontender, liver spleen not palpable, no masses palpable. PSYCH: Lethargic. Not answering questions MUSCULOSKELETAL:No Clubbing/cyanosis;muscles-grossly intact NEUROLOGICAL: Right eye blind. Cranial nerves grossly intact; no facial asymmetry, moving his limbs. INVESTIGATIONS, reviewed in the clinical context: January 17: White count 9.8 hemoglobin 11.9 platelets 83 sodium 158 potassium 2.6 BUN [address] abdomen pelvis [January 15] possible pneumonia. DJD changes. January 16: Influenza type A, type B, RSV, SARS-CoV-2: Not detected January 15: White count 8.7 hemoglobin 13.1 platelets 63 sodium 155 potassium 3.1 BUN 31 creatinine 0.8 January 13: White count 10.8. Hemoglobin 12.9 sodium 149 potassium 3.4. 40 creatinine 0.94 Blood culture [January 11: Presumptive MRSA January 11, 2025: White count 11.1 hemoglobin 12.8 platelets 100 sodium 138 potassium 3.6 BUN 48 creatinine 1.38 bicarb 17 Lactic acid 3.1, 2.7 total bilirubin 2.2 AST 107 ALT 69 EKG tracing personally reviewed by me-sinus tachycardia. Nonspecific T wave changes. Chest x-ray film personally reviewed by me-possible scattered infiltrate January 10: White count 10.2 hemoglobin 9.6 platelets 120 sodium 135 BUN 39 creatinine 1.42 UA positive for leukoesterase, WBC CT scan brain without contrast: No acute process. Chronic atrophy Assessment plan: -Severe sepsis, delirium with blood cultures positive for MRSA: Repeat blood cultures from January 13 positive: Slow to respond Possible source UTI IV vancomycin. Fluids CT abdomen pelvis: Unremarkable - Pneumonia suspect gram-negative organism/aspiration, causing hypoxia: Not improving Add IV ceftazidime - Acute hypoxic respiratory failure secondary to pneumonia: Not improving 10 L of oxygen. Pulmonary following - Acute delirium with metabolic encephalopathy from underlying sepsis:: Not improving - Diabetes mellitus type 2, regular insulin and oral hypoglycemic Hold oral hypoglycemic. Lantus to 16 units as patient is NPO.. Accu-Cheks with sliding scale. - Hypernatremia, secondary to free water deficit.: Worsening Getting IV fluids. Increase D5.45, to 150 cc an hour - Advanced cognitive impairment from Alzheimer's dementia - Acute dysphagia.-From delirium. Prior to admission patient's tolerating a diet. Currently NPO. Speech therapy is following. - BPH Flomax 0.4 mg a day - Right eye blindness - GERD Prilosec 20 mg nightly - Hypothyroid Synthroid IV every 48 hours - Hyperlipidemia Lipitor 10 mg nightly - PAD Aspirin - No code Prognosis poor. Increase IV fluids to 150 cc an hour. If continues to do poorly overnight. Then will-comfort care. Nurse did give an update to the daughter today. Past Medical History Past Medical History: CVA/TIA, Diabetes Mellitus, Eye Disorder, Hyperlipidemia, Hypertension, Prostate Disorder, Thyroid Disorder, Vascular Disorder Additional Past Medical History / Comment(s): CVA with R eye blindness, bilateral glaucoma, past HTN but then running low blood pressures and taken off rx, epistaxis, NIDDM type II, BPH, sinus problems, hypothyroid, PVD/L leg. History of Any Multi-Drug Resistant Organisms: None Reported Past Surgical History: Appendectomy, Cholecystectomy Additional Past Surgical History / Comment(s): Colonoscopy Past Anesthesia/Blood Transfusion Reactions: No Reported Reaction Past Psychological History: No Psychological Hx Reported Smoking Status: Never smoker Past Alcohol Use History: Unable to Obtain Past Drug Use History: Unable to Obtain
[2025-01-17] MEDS: DEXTROSE 5%-0.45% NACL 1,000 ML IV SCH (21:38)
[2025-01-18 06:24] LABS: Glucose,Whole Blood 276 mg/dL (70-110)
[2025-01-18 07:15] VITALS: BP 121/64; PULSE 91
[2025-01-18 09:15] VITALS: RESP 24
[2025-01-18 11:10] LABS: Glucose,Whole Blood 350 mg/dL (70-110)
--- NOTE | 2025-01-18 13:42 | P.PN ---
Subjective Progress Note Date: 01/18/25 A pulmonary consult was placed yesterday, 01/16/2025, for increased work of breathing and hypoxia. Patient is an 89-year-old male with past medical history significant for diabetes mellitus, hypertension, hyperlipidemia, CVA/TIA, among other things. He is a senior living resident, resides at [facility]. Originally brought in by EMS on 01/11/2025 for altered mental status, high fevers, and findings concerning for UTI. Urine culture from 01/10/2025 positive for MRSA. Infectious disease has been managing his antibiotics and the patient is currently on a combination of vancomycin and Fortaz. Blood cultures from 01/11/2025 and again on 01/13/2025 both positive for MRSA bacteremia. Echoc ardiogram is pending. Most recent CBC from yesterday including a WBC count of 6.3, hemoglobin 13, hematocrit 43, platelets 70,000. Previous viral screen negative for influenza A/B, RSV, COVID. Most recent chest x-ray showing diffuse multifocal interstitial and patchy airspace opacities concerning for possible patchy pulmonary edema versus infectious process. Most recent available echocardiogram from 2021 estimating a preserved left ventricular systolic function of 55 to 60%. No significant valvular abnormalities were reported. A rapid response was called yesterday afternoon at approximately 1530. Patient was noted to have increased work of breathing and hypoxia. He was given a one-time dose of 40 mg IV push Lasix. Patient currently being evaluated on the general medical floor, he is on 10 L high flow nasal cannula. SpO2 reading ranging from 90 to 92%. He is obtunded, weak cough, with poor airway clearance. Concern for possible aspiration. Previously failed swallow evaluation. Continues to be intermittently febrile, with a Tmax of 102.6 F. Infectious disease managing antibiotics. He carries a DO NOT RESUSCITATE/DO NOT INTUBATE status. The patient is seen today January 18, 2025 in follow-up on the regular medical floor. He is currently resting in bed. His is at the bedside. No worsening shortness of breath, cough or congestion. Maintaining good O2 satura tions in the 90s on 10 L high flow nasal cannula. He is afebrile. Hemodynamically stable. Glucose 276. He remains on ceftazidime and vancomycin. Lovenox for DVT prophylaxis. He remains on D5 and half-normal saline at 150 mL/h. Blood cultures remain positive for MRSA. Objective - Vital Signs Vital signs: Vital Signs Temp 97.9 F 01/18/25 07:14 Pulse 91 01/18/25 07:14 Resp 24 01/18/25 08:00 BP 121/64 01/18/25 07:14 Pulse Ox 92 L 01/18/25 07:14 FiO2 21 01/12/25 15:22 Intake & Output 01/17/25 01/18/25 01/18/25 18:59 06:59 18:59 Intake Total 3000 Output Total 200 1100 Balance 2800 -1100 Weight 72 kg Intake: Intake, IV Titration 3000 Amount ACETAMINOPHEN IV (For NPO 400 ) 1,000 mg In Empty Bag 1 bag @ 400 mls/hr IVPB Q6HR [facility] Rx#:[id number] Dextrose 5%-0.45% NaCl 1, 1500 000 ml @ 125 mls/hr IV . Q8H [facility] Rx#:[id number] Potassium Chloride 10 meq 500 In Water For Injection 1 100ml.bag @ 100 mls/hr IVPB Q1HR [facility] Rx#: [id number] Vancomycin 1,500 mg In 500 Sodium Chloride 0.9% 500 ml 500 ml @ 167 mls/hr IVPB Q24H [facility] Rx#: [id number] cefTAZidime 1 gm In 100 Sodium Chloride 0.9% 50 ml @ 12.5 mls/hr IVPB Q8HR [facility] Rx#:[id number] Output: Urine 200 1100 Other: Voiding Method External Catheter External Catheter # Voids 2 - Exam GENERAL EXAM: Arousable, 89-year-old male, withdraws to painful stimuli, does not readily follow commands, on 10 L high flow nasal cannula, weak cough. HEAD: Normocephalic and atraumatic EYES: Normal reaction of pupils, equal size. NOSE: Clear with pink turbinates. THROAT: No erythema or exudates. NECK: No masses, no JVD. CHEST: No chest wall deformity. LUNGS: Equal air entry with diffuse coarse rhonchi heard bilaterally throughout. CVS: S1 and S2 normal with no audible murmur, regular rhythm. No extra heart sounds ABDOMEN: No hepatosplenomegaly, active bowel sounds, no guarding or rigidity. SPINE: No scoliosis or deformity SKIN: No rashes CENTRAL NERVOUS SYSTEM: Obtunded, does not really follow commands, withdraws to painful stimuli in all 4 extremities EXTREMITIES: There is no peripheral edema, clubbing, or cyanosis. Peripheral pulses are intact. - Labs CBC & Chem 7: 01/17/25 03:43 01/17/25 16:46 Labs: Abnormal Lab Results - Last 24 Hours (Table) 01/17/25 01/17/25 01/17/25 Range/Units 16:30 16:46 20:11 Potassium 3.4 L (3.5-5.1) mmol/L POC Glucose (mg/dL) 311 H 249 H (70-110) mg/dL 01/18/25 01/18/25 Range/Units 06:22 11:09 Potassium (3.5-5.1) mmol/L POC Glucose (mg/dL) 276 H 350 H (70-110) mg/dL Microbiology - Last 24 Hours (Table) 01/15/25 21:17 Blood Culture Gram Stain - Preliminary Blood Blood Culture - Preliminary Presumptive MRSA Molecular ID Assessment and Plan Assessment: Complicated urinary tract infection/urosepsis, isolated organism MRSA Persistent MRSA bacteremia Sepsis, secondary to above Diffuse multifocal patchy airspace opacities concerning for pneumonia, probable aspiration pneumonia Acute hypoxemic respiratory failure, on 10 L high flow nasal cannula, secondary to above Altered mental status, likely secondary to acute toxic metabolic encephalopat hy/sepsis Thrombocytopenia Hyperchloremic hypernatremia, secondary to poor oral intake and free water deficit Hypokalemia, monitor and replace per protocol Acute kidney injury Diabetes mellitus History of hypothyroidism History of hypertension History of hyperlipidemia History of CVA/TIA History of BPH [facility] resident Plan: The patient was seen and evaluated Labs and medications reviewed Currently on vancomycin and ceftazidime Remains on D5 and half-normal saline at 150 mL/h Lovenox for DVT prophylaxis Requiring 10 L high flow nasal cannula Obtunded but arousable DNR CODE STATUS is at the bedside Being considered for hospice I have personally seen and examined the patient, performed the documentation and the assessment and plan as written. Number of minutes spent on the visit: 10 Dictation was produced using [employer] dictation software. Please excuse any grammatical, word or spelling errors.
[2025-01-18 14:34] VITALS: TEMP 97.6
[2025-01-18 14:49] VITALS: BMI 23.4
[2025-01-18] MEDS ORDERED: VANCOMYCIN TROUGH DUE 1 EACH MISC MISCELLANE ONE (20:00)
--- NOTE | 2025-01-19 13:10 | P.PN ---
Subjective Progress Note Date: 01/18/25 Principal diagnosis: Reason for follow-up is UTI and bacteremia Patient is a 89-year-old male with a past medical history significant for CVA/TIA, Diabetes Mellitus, Eye Disorder, Hyperlipidemia, Hypertension, Prostate Disorder, Thyroid Disorder, Vascular Disorder patient has been brought into the hospital for evaluation of mental status changes, patient did have fev er elevated white count positive UA concerning for symptomatic UTI subsequently blood cultures came back positive with MRSA. On today's evaluation that is 01/18/2025,the patient did have resolution of his fever afebrile this morning the patient remains to be lethargic unable provide any history still requiring a 10 L hyponasal cannula oxygen vomiting or diarrhea has been reported. No new lab has been obtained today Objective - Vital Signs Vital signs: Vital Signs Temp 97.9 F 01/18/25 07:14 Pulse 91 01/18/25 07:14 Resp 24 01/18/25 08:00 BP 121/64 01/18/25 07:14 Pulse Ox 92 L 01/18/25 07:14 FiO2 21 01/12/25 15:22 Intake & Output 01/17/25 01/18/25 01/18/25 18:59 06:59 18:59 Intake Total 3000 Output Total 200 1100 Balance 2800 -1100 Weight 72 kg Intake: Intake, IV Titration 3000 Amount ACETAMINOPHEN IV (For NPO 400 ) 1,000 mg In Empty Bag 1 bag @ 400 mls/hr IVPB Q6HR [facility] Rx#:[id number] Dextrose 5%-0.45% NaCl 1, 1500 000 ml @ 125 mls/hr IV . Q8H [facility] Rx#:[id number] Potassium Chloride 10 meq 500 In Water For Injection 1 100ml.bag @ 100 mls/hr IVPB Q1HR [facility] Rx#: [id number] Vancomycin 1,500 mg In 500 Sodium Chloride 0.9% 500 ml 500 ml @ 167 mls/hr IVPB Q24H [facility] Rx#: [id number] cefTAZidime 1 gm In 100 Sodium Chloride 0.9% 50 ml @ 12.5 mls/hr IVPB Q8HR [facility] Rx#:[id number] Output: Urine 200 1100 Other: Voiding Method External Catheter External Catheter # Voids 2 - Exam GENERAL DESCRIPTION: An elderly male lying in bed in no distress RESPIRATORY SYSTEM: Unlabored breathing , decreased breath sounds at bases HEART: S1 S2 regular rate and rhythm , ABDOMEN: Soft , no tenderness EXTREMITIES: No edema feet - Labs CBC & Chem 7: 01/17/25 03:43 01/17/25 16:46 Labs: Abnormal Lab Results - Last 24 Hours (Table) 01/17/25 01/17/25 01/17/25 Range/Units 10:57 16:30 16:46 Potassium 3.4 L (3.5-5.1) mmol/L Creatinine 1.60 H (0.66-1.25) mg/dL POC Glucose (mg/dL) 311 H (70-110) mg/dL 01/17/25 01/18/25 01/18/25 Range/Units 20:11 06:22 11:09 Potassium (3.5-5.1) mmol/L Creatinine (0.66-1.25) mg/dL POC Glucose (mg/dL) 249 H 276 H 350 H (70-110) mg/dL Microbiology - Last 24 Hours (Table) 01/15/25 21:17 Blood Culture Gram Stain - Preliminary Blood Blood Culture - Preliminary Presumptive MRSA Molecular ID Assessment and Plan (1) Sepsis Status: Acute Code(s): A41.9 - SEPSIS, UNSPECIFIED ORGANISM SNOMED Code(s): 25247401 (2) UTI (urinary tract infection) Status: Acute Code(s): N39.0 - URINARY TRACT INFECTION, SITE NOT SPECIFIED SNOMED Code(s): 31348578 (3) Leukocytosis Status: Acute Code(s): D72.829 - ELEVATED WHITE BLOOD CELL COUNT, UNSPECIFIED SNOMED Code(s): 394928463 (4) MRSA bacteremia Status: Acute Code(s): R78.81 - BACTEREMIA; B95.62 - METHICILLIN RESIS STAPH INFCT CAUSING DISEASES CLASSD ELSWHR SNOMED Code(s): 77438042471050396 Plan: 1patient presented to hospital with sepsis in this patient who did have a fever tachycardia hypotension source likely urinary however underlying abdominal source not entirely excluded keeping in mind he did have elevated liver enzymes and likely will need to cover for enteric gram-negative pathogen 2-patient did have multiple comorbidities including diabetes prostate disorder hypertension and hyperlipidemia complicating his overall clinical picture 3- ultrasound of the abdomen with no evidence of any hepatobiliary disease or evidence of any hydronephrosis 4-patient with MRSA bacteremia source with initial concern for possible urinary source however with persistent bacteremia high clinical suspicious for endocarditis patient is covered with vancomycin did have worsening of his clinical condition and family leaning toward hospice which may be appropriate Sister at the bedside multiple question concern answered Dictation was produced using [employer] dictation software. please excuse any grammatical, word or spelling errors. Time with Patient: Less than 30
--- NOTE | 2025-01-20 20:07 | P.DS ---
Providers Date of admission: 01/11/25 10:04 Expected date of discharge: 01/18/25 Attending physician: Tito Paige Consults: 01/11/25 10:02 Consult Physician Routine Consulting Provider: Hima Cristina Consult Reason/Comments: sepsis Do you want consulting provider notified?: Yes 01/16/25 14:56 Consult Physician Stat Consulting Provider: Morales Cuevas Consult Reason/Comments: Shortness of breath Do you want consulting provider notified?: Yes [facility] care [facility] Course: Chief Complaint: Altered mentation This is a 89-year-old patient, brought into the ER from [facility]. Patient is delirious in the ER. Unable to give a history. Per the EMS report: Nurse stated patient been having fevers for last couple of days. Was being given Tylenol. Previous night patient was tested positive for UTI. In daycare having more altered mentation. Has underlying dementia. Patient is attending Dr. Mandujano order the patient to be transferred to the hospital. Patient may speak a word. It was morning. Patient here in the ER his morning. Awake. Attempts to talk but barely able to do so. Had a temperature 102.4 here. January 12: Still a bit delirious. But better than yesterday. Attempting to talk a bit more. Blood cultures x 2 sets coming back positive for MRSA. Presumptive. IV vancomycin. Last fever spike was last night of 101.1. Per ID Zosyn discontinued. January 13: Patient likely answering questions. Little bit confused. Mentation not fluctuating. Spoke to Racquel from speech therapist. This morning he did not really follow commands. She will try again this afternoon. No further fever. Getting IV vancomycin for MRSA. Will change IV fluids to D5W. Because patient is NPO. Cut back Lantus to 22 units. January 14: Family is at bedside. Because of mentation patient remains NPO. Diet. Will attempt to speak. Getting vancomycin. IV fluids D5.45. Will reduce dose of Lantus January 15: Patient attempted to speak a bit better today. Patient's son and [id number] from [place] visiting. Earlier today sodium 155. Increase IV fluids to 125 cc an hour.. NPO. Spoke to the son about prognosis being guarded given his age and comorbidities. Repeat blood culture from January [address] scan abdomen pelvis ordered with IV contrast. January 16: Starting a bit congested in the chest. Probable pneumonia. Will add IV ceftazidime. Patient still spiking fevers. Spoke to patient daughter Spring over the phone, she understands prognosis guarded. No artificial f eeding. . Patient's oxygen requirement has gone up. Requiring high flow oxygen. Pulmonary is being consulted. January 17: Patient remains encephalopathic. On IV vancomycin IV ceftazidime. Getting IV fluids. Still hypernatremic. Decreased urine output. Not able to communicate. Unable to feed. Nurse did reach out to patient daughter. She understands patient's prognosis was poor. Will watch overnight. If no significant change in clinical status symptoms improvement will then had towards comfort care. January 18: Patient condition too poorly. Not much change in clinical status. Hospice consulted. For GIP. Daughter was informed. Communicated with hospice team. The nurse. Not waking up. Not communicating. More breathing. Short of breath Discussion and discharge planning more than 35 minutes Social history: Patient came in from [facility]. Does use a walker. Non-smoker. Physical examination: VITAL SIGNS: 97.4, 84, 22, 109 x 65, 93% on 10 L GENERAL: Laying in bed. Audibly congested. Mouth breathing EYES: Right eye cloudy. Arcus senilis left eye, HEENT: [External appearance of nose and ears normal, oral cavity dry mucous membrane. NECK: JVD not raised; masses not palpable. HEART: First and second heart sounds are normal; no edema. LUNGS: Respiratory rate increased, expiratory coarse crackles n. Mouth breathing ABDOMEN: Soft, nontender, liver spleen not palpable, no masses palpable. PSYCH: Lethargic. Not answering questions MUSCULOSKELETAL:No Clubbing/cyanosis;muscles-grossly intact NEUROLOGICAL: Right eye blind. Cranial nerves grossly intact; no facial asymmetry, moving his limbs. INVESTIGATIONS, reviewed in the clinical context: January 17: White count 9.8 hemoglobin 11.9 platelets 83 sodium 158 potassium 2.6 BUN [address] abdomen pelvis [January 15] possible pneumonia. DJD changes. January 16: Influenza type A, type B, RSV, SARS-CoV-2: Not detected January 15: White count 8.7 hemoglobin 13.1 platelets 63 sodium 155 potassium 3.1 BUN 31 creatinine 0.8 January 13: White count 10.8. Hemoglobin 12.9 sodium 149 potassium 3.4. 40 creatinine 0.94 Blood culture [January 11: Presumptive MRSA January 11, 2025: White count 11.1 hemoglobin 12.8 platelets 100 sodium 138 potassium 3.6 BUN 48 creatinine 1.38 bicarb 17 Lactic acid 3.1, 2.7 total bilirubin 2.2 AST 107 ALT 69 EKG tracing personally reviewed by me-sinus tachycardia. Nonspecific T wave changes. Chest x-ray film personally reviewed by me-possible scattered infiltrate January 10: White count 10.2 hemoglobin 9.6 platelets 120 sodium 135 BUN 39 creatinine 1.42 UA positive for leukoesterase, WBC CT scan brain without contrast: No acute process. Chronic atrophy Assessment plan: -Severe sepsis, delirium with blood cultures positive for MRSA: Repeat blood cultures from January 13 positive: Slow to respond Possible source UTI IV vancomycin. Fluids CT abdomen pelvis: Unremarkable - Pneumonia suspect gram-negative organism/aspiration, causing hypoxia: Not improving Add IV ceftazidime - Acute hypoxic respiratory failure secondary to pneumonia: Not improving 10 L of oxygen. Pulmonary following - Acute delirium with metabolic encephalopathy from underlying sepsis:: Not improving - Diabetes mellitus type 2, regular insulin and oral hypoglycemic Hold oral hypoglycemic. Lantus to 16 units as patient is NPO.. Accu-Cheks with sliding scale. - Hypernatremia, secondary to free water deficit.: Worsening Getting IV fluids. Increase D5.45, to 150 cc an hour - Advanced cognitive impairment from Alzheimer's dementia - Acute dysphagia.-From delirium. Prior to admission patient's tolerating a diet. Currently NPO. Speech therapy is following. - BPH Flomax 0.4 mg a day - Right eye blindness - GERD Prilosec 20 mg nightly - Hypothyroid Synthroid IV every 48 hours - Hyperlipidemia Lipitor 10 mg nightly - PAD Aspirin - No code Disposition: GIP/inpatient hospice Past Medical History Past Medical History: CVA/TIA, Diabetes Mellitus, Eye Disorder, Hyperlipidemia, Hypertension, Prostate Disorder, Thyroid Disorder, Vascular Disorder Additional Past Medical History / Comment(s): CVA with R eye blindness, bilateral glaucoma, past HTN but then running low blood pressures and taken off rx, epistaxis, NIDDM type II, BPH, sinus problems, hypothyroid, PVD/L leg. History of Any Multi-Drug Resistant Organisms: None Reported Past Surgical History: Appendectomy, Cholecystectomy Additional Past Surgical History / Comment(s): Colonoscopy Past Anesthesia/Blood Transfusion Reactions: No Reported Reaction Past Psychological History: No Psychological Hx Reported Smoking Status: Never smoker Past Alcohol Use History: Unable to Obtain Past Drug Use History: Unable to Obtain Plan - Discharge Summary Discharge Rx Participant: No New Discharge Prescriptions: No Action Tamsulosin [Flomax] 0.4 mg PO DAILY metFORMIN HCL [Glucophage] 1,000 mg PO BID Levothyroxine Sodium [Synthroid] 50 mcg PO DAILY Brimonidine Tartrate/Timolol [Combigan 0.2%-0.5% Eye Drops] 1 drop BOTH EYES BID Midodrine [ProAmatine] 5 mg PO TID Insulin Glargine,Hum.rec.anlog [Lantus Solostar Pen] 36 units SQ DAILY Empagliflozin [Jardiance] 25 mg PO DAILY Glimepiride [Amaryl] 2 mg PO DAILY Glimepiride [Amaryl] 1 mg PO DAILY Brinzolamide [Azopt 1% Ophth Susp] 1 drop LEFT EYE BID Aspirin 81 mg PO DAILY Ferrous Sulfate [Iron (65 MG Elemental)] 325 mg PO DAILY Vit C/E/Zn/Coppr/Lutein/Zeaxan [Preservision Areds 2 Softgel] 1 cap PO DAILY Multivitamins, Thera [Multivitamin (formulary)] 1 tab PO DAILY Latanoprost [Xalatan 0.005%] 1 drop BOTH EYES HS Atorvastatin [Lipitor] 10 mg PO HS Omeprazole 20 mg PO HS Icy Hot External Liquid 16% 1 applic TOPICAL BID Bimatoprost [Lumigan 0.01% Oph Soln] 1 drop BOTH EYES BID Cholecalciferol [Vitamin D3 (25 Mcg = 1000 Iu)] 50 mcg PO DAILY Carboxymethylcellulose Sodium [Refresh Tears] 1 drop BOTH EYES BID Acetaminophen [Tylenol 8 Hour] 650 mg PO Q6H PRN PRN Reason: elevated temperature Discharge Medication List Atorvastatin [Lipitor] 10 mg PO HS 11/17/21 [History] Brimonidine Tartrate/Timolol [Combigan 0.2%-0.5% Eye Drops] 1 drop BOTH EYES BID 11/17/21 [History] Latanoprost [Xalatan 0.005%] 1 drop BOTH EYES HS 11/17/21 [History] Levothyroxine Sodium [Synthroid] 50 mcg PO DAILY 11/17/21 [History] Multivitamins, Thera [Multivitamin (formulary)] 1 tab PO DAILY 11/17/21 [History] Tamsulosin [Flomax] 0.4 mg PO DAILY 11/17/21 [History] Vit C/E/Zn/Coppr/Lutein/Zeaxan [Preservision Areds 2 Softgel] 1 cap PO DAILY 11/17/21 [History] metFORMIN HCL [Glucophage] 1,000 mg PO BID 11/17/21 [History] Acetaminophen [Tylenol 8 Hour] 650 mg PO Q6H PRN 01/11/25 [History] Aspirin 81 mg PO DAILY 01/11/25 [History] Bimatoprost [Lumigan 0.01% Ophth Soln] 1 drop BOTH EYES BID 01/11/25 [History] Brinzolamide [Azopt 1% Ophth Susp] 1 drop LEFT EYE BID 01/11/25 [History] Carboxymethylcellulose Sodium [Refresh Tears] 1 drop BOTH EYES BID 01/11/25 [History] Cholecalciferol [Vitamin D3 (25 Mcg = 1000 Iu)] 50 mcg PO DAILY 01/11/25 [History] Empagliflozin [Jardiance] 25 mg PO DAILY 01/11/25 [History] Ferrous Sulfate [Iron (65 MG Elemental)] 325 mg PO DAILY 01/11/25 [History] Glimepiride [Amaryl] 1 mg PO DAILY 01/11/25 [History] Glimepiride [Amaryl] 2 mg PO DAILY 01/11/25 [History] Icy Hot External Liquid 16% 1 applic TOPICAL BID 01/11/25 [History] Insulin Glargine,Hum.rec.anlog [Lantus Solostar Pen] 36 units SQ DAILY 01/11/25 [History] Midodrine [ProAmatine] 5 mg PO TID 01/11/25 [History] Omeprazole 20 mg PO HS 01/11/25 [History] Follow up Appointment(s)/Referral(s): Oliverio Mandujano DO [Primary Care Provider] - 1-2 days Discharge Disposition: DISCH TO [facility]
== END 2025-01-18 14:54 | disposition hospice, inpatient (51) | DRG 871 ==
LOC: EC 07:26 → 3SCARD 10:04 → 4SSUR 01-13 21:30
PROVIDERS: ADMIT Hospitalist; ATTEND Hospitalist
DX: A41.02 Sepsis due to Methicillin resistant Staphylococcus aureus (principal); G93.41 Metabolic encephalopathy; J96.01 Acute respiratory failure with hypoxia; J69.0 Pneumonitis due to inhalation of food and vomit; E87.0 Hyperosmolality and hypernatremia; F03.90 Unspecified dementia, unspecified severity, without behavioral disturbance, psychotic disturbance, mood disturbance, and anxiety; Z51.5 Encounter for palliative care; Z66 Do not resuscitate; E11.51 Type 2 diabetes mellitus with diabetic peripheral angiopathy without gangrene; I10 Essential (primary) hypertension; I69.398 Other sequelae of cerebral infarction; E03.9 Hypothyroidism, unspecified; F05 Delirium due to known physiological condition; N17.9 Acute kidney failure, unspecified; N39.0 Urinary tract infection, site not specified; Z79.4 Long term (current) use of insulin; D69.6 Thrombocytopenia, unspecified; E78.5 Hyperlipidemia, unspecified; R63.30 Feeding difficulties, unspecified; E87.6 Hypokalemia; E87.8 Other disorders of electrolyte and fluid balance, not elsewhere classified; B95.62 Methicillin resistant Staphylococcus aureus infection as the cause of diseases classified elsewhere; H53.8 Other visual disturbances; H54.61 Unqualified visual loss, right eye, normal vision left eye; N40.0 Benign prostatic hyperplasia without lower urinary tract symptoms; Z86.73 Personal history of transient ischemic attack (TIA), and cerebral infarction without residual deficits; Z79.890 Hormone replacement therapy; Z79.84 Long term (current) use of oral hypoglycemic drugs; Z79.899 Other long term (current) drug therapy; Z79.82 Long term (current) use of aspirin
CPT/HCPCS: 36415; 36600; 51702; 70450; 71045; 74177; 76700; 80048; 80053; 80202; 81001; 82565; 82805; 83605; 83880; 84132; 84145; 85025; 85027; 85610; 85730; 87040; 87077; 87086; 87186; 87636; 93005; 93306; 94760; 96361; 96365; 96366; 96367; 96372; 99291

== ENCOUNTER 2025-01-18 13:35 | Inpatient (IN) | payer MEDICAID ==
[2025-01-18] MEDS ORDERED: GLYCOPYRROLATE 0.2 MG/ML 2 ML VIAL IVP PRN (14:13)
[2025-01-18] MEDS ORDERED: MORPHINE SULFATE 4 MG/ML SYRINGE IV PRN (14:13)
[2025-01-18] MEDS ORDERED: ATROPINE OPHTH SOLN 1% 5ML BTL SUBLINGUAL PRN (14:13)
[2025-01-18] MEDS ORDERED: LORazepam 1 MG/0.5 ML VIAL IV PRN (14:13)
[2025-01-18] MEDS: MORPHINE SULFATE 100 MG in SODIUM CHLORIDE 0.9% 90 ML IV SCH (16:18)
[2025-01-18] MEDS: SCOPOLAMINE 1 MG/72 HR PATCH TRANSDERM SCH (16:30)
[2025-01-19 02:05] VITALS: PULSE 69
--- NOTE | 2025-01-20 20:37 | P.DS ---
Providers Date of admission: 01/18/25 15:02 Expected date of discharge: 01/19/25 Attending physician: Tito Paige Primary care physician: Oliverio Mandujano [facility] Course: Chief Complaint: Altered mentation This is a 89-year-old patient, brought into the ER from [facility]. Patient is delirious in the ER. Unable to give a history. Per the EMS report: Nurse stated patient been having fevers for last couple of days. Was being given Tylenol. Previous night patient was tested positive for UTI. In daycare having more altered mentation. Has underlying dementia. Patient is attending Dr. Mandujano order the patient to be transferred to the hospital. Patient may speak a word. It was morning. Patient here in the ER his morning. Awake. Attempts to talk but barely able to do so. Had a temperature 102.4 here. January 12: Still a bit delirious. But better than yesterday. Attempting to talk a bit more. Blood cultures x 2 sets coming back positive for MRSA. Presumptive. IV vancomycin. Last fever spike was last night of 101.1. Per ID Zosyn discontinued. January 13: Patient likely answering questions. Little bit confused. Mentation not fluctuating. Spoke to Racquel from speech therapist. This morning he did not really follow commands. She will try again this afternoon. No further fever. Getting IV vancomycin for MRSA. Will change IV fluids to D5W. Because patient is NPO. Cut back Lantus to 22 units. January 14: Family is at bedside. Because of mentation patient remains NPO. Diet. Will attempt to speak. Getting vancomycin. IV fluids D5.45. Will reduce dose of Lantus January 15: Patient attempted to speak a bit better today. Patient's son and [id number] from [place] visiting. Earlier today sodium 155. Increase IV fluids to 125 cc an hour.. NPO. Spoke to the son about prognosis being guarded given his age and comorbidities. Repeat blood culture from January [address] scan abdomen pelvis ordered with IV contrast. January 16: Starting a bit congested in the chest. Probable pneumonia. Will add IV ceftazidime. Patient still spiking fevers. Spoke to patient daughter Spring over the phone, she understands prognosis guarded. No artificial feeding. . Patient's oxygen requirement has gone up. Requiring high flow oxygen. Pulmonary is being consulted. January 17: Patient remains encephalopathic. On IV vancomycin IV ceftazidime. Getting IV fluids. Still hypernatremic. Decreased urine output. Not able to communicate. Unable to feed. Nurse did reach out to patient daughter. She understands patient's prognosis was poor. Will watch overnight. If no significant change in clinical status symptoms improvement will then had towards comfort care. January 18: Patient condition too poorly. Not much change in clinical status. Hospice consulted. For GIP. Daughter was informed. Communicated with hospice team. The nurse. Not waking up. Not communicating. More breathing. Short of breath Discussion and discharge planning more than 35 minutes January 19: Patient was under GIP. Admitted yesterday. Cause of : Pneumonia was followed by the hospice team for GIP. Plan - Discharge Summary Discharge Rx Participant: Yes New Discharge Prescriptions: No Action Tamsulosin [Flomax] 0.4 mg PO DAILY metFORMIN HCL [Glucophage] 1,000 mg PO BID Levothyroxine Sodium [Synthroid] 50 mcg PO DAILY Brimonidine Tartrate/Timolol [Combigan 0.2%-0.5% Eye Drops] 1 drop BOTH EYES BID Midodrine [ProAmatine] 5 mg PO TID Insulin Glargine,Hum.rec.anlog [Lantus Solostar Pen] 36 units SQ DAILY Empagliflozin [Jardiance] 25 mg PO DAILY Glimepiride [Amaryl] 2 mg PO DAILY Glimepiride [Amaryl] 1 mg PO DAILY Brinzolamide [Azopt 1% Ophth Susp] 1 drop LEFT EYE BID Aspirin 81 mg PO DAILY Ferrous Sulfate [Iron (65 MG Elemental)] 325 mg PO DAILY Vit C/E/Zn/Coppr/Lutein/Zeaxan [Preservision Areds 2 Softgel] 1 cap PO DAILY Multivitamins, Thera [Multivitamin (formulary)] 1 tab PO DAILY Latanoprost [Xalatan 0.005%] 1 drop BOTH EYES HS Atorvastatin [Lipitor] 10 mg PO HS Omeprazole 20 mg PO HS Icy Hot External Liquid 16% 1 applic TOPICAL BID Bimatoprost [Lumigan 0.01% Ophth Soln] 1 drop BOTH EYES BID Cholecalciferol [Vitamin D3 (25 Mcg = 1000 Iu)] 50 mcg PO DAILY Carboxymethylcellulose Sodium [Refresh Tears] 1 drop BOTH EYES BID Acetaminophen [Tylenol 8 Hour] 650 mg PO Q6H PRN PRN Reason: elevated temperature Discharge Medication List Atorvastatin [Lipitor] 10 mg PO HS 11/17/21 [History] Brimonidine Tartrate/Timolol [Combigan 0.2%-0.5% Eye Drops] 1 drop BOTH EYES BID 11/17/21 [History] Latanoprost [Xalatan 0.005%] 1 drop BOTH EYES HS 11/17/21 [History] Levothyroxine Sodium [Synthroid] 50 mcg PO DAILY 11/17/21 [History] Multivitamins, Thera [Multivitamin (formulary)] 1 tab PO DAILY 11/17/21 [History] Tamsulosin [Flomax] 0.4 mg PO DAILY 11/17/21 [History] Vit C/E/Zn/Coppr/Lutein/Zeaxan [Preservision Areds 2 Softgel] 1 cap PO DAILY 11/17/21 [History] metFORMIN HCL [Glucophage] 1,000 mg PO BID 11/17/21 [History] Acetaminophen [Tylenol 8 Hour] 650 mg PO Q6H PRN 01/11/25 [History] Aspirin 81 mg PO DAILY 01/11/25 [History] Bimatoprost [Lumigan 0.01% Ophth Soln] 1 drop BOTH EYES BID 01/11/25 [History] Brinzolamide [Azopt 1% Ophth Susp] 1 drop LEFT EYE BID 01/11/25 [History] Carboxymethylcellulose Sodium [Refresh Tears] 1 drop BOTH EYES BID 01/11/25 [History] Cholecalciferol [Vitamin D3 (25 Mcg = 1000 Iu)] 50 mcg PO DAILY 01/11/25 [History] Empagliflozin [Jardiance] 25 mg PO DAILY 01/11/25 [History] Ferrous Sulfate [Iron (65 MG Elemental)] 325 mg PO DAILY 01/11/25 [History] Glimepiride [Amaryl] 1 mg PO DAILY 01/11/25 [History] Glimepiride [Amaryl] 2 mg PO DAILY 01/11/25 [History] Icy Hot External Liquid 16% 1 applic TOPICAL BID 01/11/25 [History] Insulin Glargine,Hum.rec.anlog [Lantus Solostar Pen] 36 units SQ DAILY 01/11/25 [History] Midodrine [ProAmatine] 5 mg PO TID 01/11/25 [History] Omeprazole 20 mg PO HS 01/11/25 [History] Discharge Disposition: - Preliminary Cause of Preliminary Cause of : Pneumonia
== END 2025-01-19 07:44 | disposition expired | DRG 951 ==
LOC: 4SSUR 15:02
PROVIDERS: ADMIT Hospitalist; ATTEND Hospitalist
DX: Z51.5 Encounter for palliative care (principal); J15.69 Pneumonia due to other Gram-negative bacteria; A41.50 Gram-negative sepsis, unspecified; R65.20 Severe sepsis without septic shock; G93.41 Metabolic encephalopathy; G30.9 Alzheimer's disease, unspecified; E11.51 Type 2 diabetes mellitus with diabetic peripheral angiopathy without gangrene; E03.9 Hypothyroidism, unspecified; I69.398 Other sequelae of cerebral infarction; F05 Delirium due to known physiological condition; N30.00 Acute cystitis without hematuria; F02.80 Dementia in other diseases classified elsewhere, unspecified severity, without behavioral disturbance, psychotic disturbance, mood disturbance, and anxiety; Z66 Do not resuscitate; Z79.84 Long term (current) use of oral hypoglycemic drugs; N40.0 Benign prostatic hyperplasia without lower urinary tract symptoms; K21.9 Gastro-esophageal reflux disease without esophagitis; E78.5 Hyperlipidemia, unspecified; H54.61 Unqualified visual loss, right eye, normal vision left eye; H40.9 Unspecified glaucoma; Z79.899 Other long term (current) drug therapy; Z79.890 Hormone replacement therapy; Z79.82 Long term (current) use of aspirin